=== PATIENT | female | born 1945 | race Caucasian/White ===

== ENCOUNTER → 2017-11-16 09:18 | Outpatient (POV) | payer MEDICARE, MEDICAID, SELFPAY | PROVIDERS: Visit Provider Dermatology | DX: Z00.00 Encounter for general adult medical examination without abnormal findings (principal) ==

== ENCOUNTER → 2018-01-18 09:19 | Outpatient (POV) | payer MEDICARE, MEDICAID, SELFPAY | PROVIDERS: Visit Provider Dermatology | DX: Z00.00 Encounter for general adult medical examination without abnormal findings (principal) ==

== ENCOUNTER → 2020-07-30 09:13 | Outpatient (POV) | payer MEDICARE, MEDICAID, SELFPAY | PROVIDERS: Visit Provider Dermatology | DX: Z00.00 Encounter for general adult medical examination without abnormal findings (principal) ==

== ENCOUNTER → 2021-06-23 10:46 | Outpatient (CLI) | payer MEDICARE, MEDICAID, SELFPAY ==
--- NOTE | 2021-06-23 10:51 | MR_ITS ---
FINAL REPORT CLINICAL HISTORY: LOW BACK PAIN worse on right side. bilateral leg tingling. no injury or trauma. COMPARISON: 06/19/2016 FINDINGS: Multiplanar MR imaging of the lumbar spine was performed without contrast. On the sagittal T2-weighted images, disc degeneration is seen at multiple levels. The vertebral alignment is normal. There is a mild, chronic compression fracture of L1. The conus has an unremarkable appearance. T11-12: An annular bulge is present. There are vertebral osteophytes. There is no significant canal stenosis or neural foraminal narrowing. T12-L1:An annular bulge is present. There are vertebral osteophytes. There is no significant canal stenosis or neural foraminal narrowing. L1-2: An annular bulge is present. There is no significant canal stenosis or neural foraminal narrowing. L2-3: There is an annular disc bulge with facet arthropathy and vertebral osteophytes. There is mild bilateral neural foraminal narrowing. There is no significant canal stenosis. L3-4: There is an annular disc bulge with facet arthropathy. There is mild left neural foraminal narrowing. There is no significant canal stenosis. L4-5: There is an annular disc bulge with facet arthropathy. There is moderate right and mild left neural foraminal narrowing. There is no significant canal stenosis. L5-S1: There is an annular disc bulge with facet arthropathy. There is a left paracentral superiorly extruded disc which is new as compared to the prior exam. There is left S1 nerve root impingement and mild bilateral neural foraminal narrowing. IMPRESSION: Multilevel degenerative disc disease with areas of neural foraminal narrowing. Left paracentral superiorly extruded disc at L5-S1 causing left S1 nerve root impingement and mild bilateral neural foraminal narrowing. Reviewed, Interpreted and Dictated by Bear Bahena III, MD Transcribed by Shireen Perez Authenticated by Bear Bahena III, MD on 06/23/2021 12:55:16 PM [facility]
== END ==
PROVIDERS: Visit Provider Anesthesiology
DX: M51.16 Intervertebral disc disorders with radiculopathy, lumbar region (principal); M47.816 Spondylosis without myelopathy or radiculopathy, lumbar region; M51.36 Other intervertebral disc degeneration, lumbar region; M79.18 Myalgia, other site; M46.1 Sacroiliitis, not elsewhere classified; R25.2 Cramp and spasm
CPT/HCPCS: 72148; 76376

== ENCOUNTER → 2022-12-07 08:35 | Outpatient (CLI) | payer MEDICARE, MEDICAID, SELFPAY ==
[2022-12-07 21:14] LABS: Alanine Aminotransferase 18 U/L (12-78); Albumin Level 4.6 g/dl (3.5-5.0); Albumin/Globulin Ratio 1.5 (1.1-1.8); Alkaline Phosphatase 142 U/L (38-126); Anion Gap 15.5 mEq/L (5-15); Aspartate Amino Transferase 32 U/L (14-36); Bilirubin,Total 0.3 mg/dl (0.2-1.3); Blood Urea Nitrogen 17 mg/dl (7-17); Calcium 9.6 mg/dl (8.4-10.2); Carbon Dioxide 28 mmol/L (22.0-30.0); Chloride 103 mmol/L (98-107); Chol/HDL Ratio 2.9 (1-3.5); Cholesterol 147 mg/dl (140-200); Estimated Glomerular Filt Rate 120 ml/min (>60); GFR (African American) 146 ML/MIN (>60); Globulin 3.1 g/dL (1.3-3.2); Glucose 108 mg/dl (74-100); HDL Cholesterol 51 mg/dl (40-60); Potassium 5.5 mmoL/L (3.5-5.1); Sodium 141 mmol/L (136-145); Total Protein,Serum 7.7 g/dl (6.3-8.2); Triglycerides 167 mg/dl (30-150); VLDL Cholesterol 33 mg/dL (0-40)
[2022-12-07 21:25] LABS: Direct LDL Cholesterol 66.33 mg/dL (100-129)
[2022-12-07 21:36] LABS: Basophils % 0.2 % (0.1-2.0); Eosinophils # 0.2 K/mm3 (0.0-0.4); Eosinophils % 2.1 % (0.1-12.0); Hemoglobin 12.7 g/dL (12.2-16.2); Lymphocytes # 1.8 K/mm3 (0.7-4.5); Lymphocytes % 18.3 % (10-50); Mean Corpuscular HGB Conc 34.3 g/dL (31.8-35.4); Mean Corpuscular Hemoglobin 28.4 pg (27.0-31.2); Mean Corpuscular Volume 82.7 fl (81-99); Mean Platelet Volume 10.1 fl (7.4-10.4); Monocytes # 0.5 K/mm3 (0.1-1.0); Monocytes % 5.6 % (1.7-9.3); Neutrophils # 7.1 K/mm3 (1.8-7.8); Neutrophils % 73.7 % (37.0-80.0); Platelet Count 245 K/mm3 (142-424); Red Blood Count 4.47 M/mm3 (4.20-5.40); Red Cell Distribution Width 13.9 % (11.5-17.5); White Blood Count 9.6 K/mm3 (4.8-10.8)
== END ==
PROVIDERS: PCP Physician Assistant; Visit Provider Physician Assistant
DX: I10 Essential (primary) hypertension (principal); M54.50 Low back pain, unspecified; E78.5 Hyperlipidemia, unspecified
CPT/HCPCS: 80053; 80061; 84443; 85025

== ENCOUNTER → 2022-12-10 10:48 | Outpatient (CLI) | payer MEDICARE, MEDICAID, SELFPAY ==
[2022-12-10 11:51] LABS: Hemoglobin A1C 6.4 % (4.0-6.0)
[2022-12-10 12:39] LABS: Anion Gap 15.8 mEq/L (5-15); Blood Urea Nitrogen 21 mg/dl (7-17); Calcium 9.8 mg/dl (8.4-10.2); Carbon Dioxide 28 mmol/L (22.0-30.0); Chloride 104 mmol/L (98-107); Estimated Glomerular Filt Rate 82 ml/min (>60); GFR (African American) 99 ML/MIN (>60); Glucose 118 mg/dl (74-100); Potassium 5.8 mmoL/L (3.5-5.1); Sodium 142 mmol/L (136-145)
[2022-12-10 12:53] LABS: 25-OH Vitamin D, Total 47.9 ng/mL (30-100)
== END ==
PROVIDERS: PCP Physician Assistant; Visit Provider Physician Assistant
DX: R73.9 Hyperglycemia, unspecified (principal); E87.5 Hyperkalemia; E55.9 Vitamin D deficiency, unspecified
CPT/HCPCS: 36415; 80048; 82306; 83036

== ENCOUNTER 2022-12-10 15:10 | Emergency (ER) | payer MEDICARE, MEDICAID, SELFPAY ==
[2022-12-10] VITALS (7 sets, daily range): BP systolic 130–152; BP diastolic 57–69; PULSE 69–78; RESP 15–18; TEMP 36.6; O2SAT 96–99; BMI 23.6
--- NOTE | 2022-12-10 15:27 | ECG_ITS ---
APPROVED REPORT Exam: Resting ECG HR:63 bpm ECG Measurements Heart Rate 63 AXES MS 136 P 54 QRSd 134 QRS -44 QT 474 T 63 QTc 482 Conclusion SINUS RHYTHM VENTRICULAR PREEXCITATION / WPW CRITICAL TEST RESULT UNCONFIRMED REPORT Electronically signed by : Israel Gann MD 12/10/2022 21:35:54
--- NOTE | 2022-12-10 15:44 | HMH.EDGENADL ---
Discharge Plan Disposition Patient Disposition: Home, Self-Care Chief Complaint: Recheck/Abnormal Lab/Rx Prescriptions Prescriptions: No Action gabapentin 300 mg capsule 300 mg PO HS clonazepam 1 mg tablet 1 mg PO BID candesartan 8 mg tablet 8 mg PO DAILY amlodipine 10 mg tablet 10 mg PO DAILY lovastatin 10 mg tablet 10 mg PO DAILY sertraline 100 mg tablet 100 mg PO DAILY alendronate 70 mg tablet 70 mg PO WEEKLY tizanidine 4 mg tablet 4 mg PO HS sotalol 80 mg tablet 80 mg PO DAILY metformin 500 mg tablet 500 mg PO DAILY Levemir FlexPen 100 unit/mL (3 mL) insulin pen 50 unit SQ HS Arexvy (PF) 120 mcg/0.5 mL suspension for reconstitution 0.5 ml IM ONCE Qty: 1 0RF meloxicam 15 mg tablet 15 mg PO DAILY Qty: 30 2RF hydrocodone-acetaminophen 10-300 mg tablet 1 tab PO Q6H PRN (Reason: pain) Qty: 120 0RF Referrals Follow up/Referrals: Flory Bautista PA [Primary Care Provider] - See instructions Dominic Weeks MD [Staff Physician] - See instructions Activity Restrictions/Add. Instructions Additional Instructions/Restrictions: At this time it was felt you are safe to be discharged home. If new or worsening symptoms please do not hesitate to return the emergency department. Please call and schedule follow-up with Dr. Weeks as soon as you are able. Clinical Impressions Clinical Impression: Encounter for medical assessment, History of Llxvy-Bvdifuanr-Tcujx (WPW) syndrome Discharge ED Provider: Manpreet Gordillo General Adult HPI General Chief complaint: Recheck/Abnormal Lab/Rx Stated complaint: sent by high cesar [place] Time Seen by Provider: 12/10/22 15:36 Mode of Arrival: Ambulatory Source of Information: Patient Limitations: No Limitations Description of Symptoms (Recalled from ER Triage Doc. by RN): Flory Bautista contacted patient and instructed her to come to ED for a Potassium of 5.1. Patient denies any symptoms. Patient states she does take a potassium pill daily. History of Present Illness HPI narrative: Patient is 77-year-old female with past medical history of O[place]endo Parkinson's White on sotalol, candesartan, amlodipine who presents emergency department for evaluation of abnormal lab. Patient had routine blood work drawn with a potassium of 5.8 noticed causing her to be referred here for continued evaluation. Patient is asymptomatic and has no complaints. Related Data Home Medications Medication Instructions Recorded Confirmed alendronate 70 mg tablet 70 mg PO WEEKLY 12/07/22 12/07/22 amlodipine 10 mg tablet 10 mg PO DAILY 12/07/22 12/07/22 candesartan 8 mg tablet 8 mg PO DAILY 12/07/22 12/07/22 clonazepam 1 mg tablet 1 mg PO BID 12/07/22 12/07/22 gabapentin 300 mg capsule 300 mg PO HS 12/07/22 12/07/22 insulin detemir U-100 100 unit/mL 50 unit SQ HS 12/07/22 12/07/22 (3 mL) subcutaneous pen (Levemir FlexPen) lovastatin 10 mg tablet 10 mg PO DAILY 12/07/22 12/07/22 metformin 500 mg tablet 500 mg PO DAILY 12/07/22 12/07/22 sertraline 100 mg tablet 100 mg PO DAILY 12/07/22 12/07/22 sotalol 80 mg tablet 80 mg PO DAILY 12/07/22 12/07/22 tizanidine 4 mg tablet 4 mg PO HS 12/07/22 12/07/22 Previous Rx's Medication Instructions Recorded RSVPreF3 antigen-AS01E 0.5 ml IM ONCE #1 ea 12/07/22 adjuvant(PF) 120 mcg/0.5 mL IM suspension, kit (Arexvy (PF)) hydrocodone 10 mg-acetaminophen 1 tab PO Q6H PRN pain #120 tabs 12/10/22 300 mg tablet meloxicam 15 mg tablet 15 mg PO DAILY inflamation #30 tabs 12/10/22 Allergies Allergy/AdvReac Type Severity Reaction Status Date / Time beta insulins AdvReac Mild Uncoded 12/07/22 10:41 PFSH PFSH Disclaimer: The information contained in this section may have been updated after the patient was seen, as this information can be updated by other users. Medical History (Updated 12/10/22 @ 17:00 by Manpreet Gordillo MD) Bulging discs Diabetes type
[2022-12-10 16:20] LABS: Basophils % 0.3 % (0.1-2.0); Eosinophils # 0.2 K/mm3 (0.0-0.4); Eosinophils % 2.2 % (0.1-12.0); Hemoglobin 12.4 g/dL (12.2-16.2); Lymphocytes % 22.1 % (10-50); Mean Corpuscular HGB Conc 34.6 g/dL (31.8-35.4); Mean Corpuscular Hemoglobin 27.9 pg (27.0-31.2); Mean Corpuscular Volume 80.7 fl (81-99); Mean Platelet Volume 8.4 fl (7.4-10.4); Monocytes # 0.5 K/mm3 (0.1-1.0); Monocytes % 5.5 % (1.7-9.3); Neutrophils # 6.3 K/mm3 (1.8-7.8); Neutrophils % 69.9 % (37.0-80.0); Platelet Count 241 K/mm3 (142-424); Red Blood Count 4.46 M/mm3 (4.20-5.40); Red Cell Distribution Width 13.9 % (11.5-17.5)
[2022-12-10 16:25] LABS: Chloride 104 mmol/L (98-107); Potassium 4.4 mmoL/L (3.5-5.1); Sodium 142 mmol/L (136-145)
[2022-12-10 16:28] LABS: Alanine Aminotransferase 18 U/L (12-78); Albumin Level 4.7 g/dl (3.5-5.0); Albumin/Globulin Ratio 1.4 (1.1-1.8); Alkaline Phosphatase 120 U/L (38-126); Anion Gap 12.4 mEq/L (5-15); Aspartate Amino Transferase 29 U/L (14-36); Bilirubin,Total 0.4 mg/dl (0.2-1.3); Blood Urea Nitrogen 20 mg/dl (7-17); Calcium 9.5 mg/dl (8.4-10.2); Carbon Dioxide 30 mmol/L (22.0-30.0); Creatinine Clearance Estimated 44 mL/min (50-200); Estimated Glomerular Filt Rate 82 ml/min (>60); GFR (African American) 99 ML/MIN (>60); Globulin 3.3 g/dL (1.3-3.2); Glucose 103 mg/dl (74-100)
== END 2022-12-10 17:09 | disposition home or self-care (01) ==
PROVIDERS: Emergency Provider Emergency Medicine; PCP Physician Assistant
DX: E87.5 Hyperkalemia (principal); E11.9 Type 2 diabetes mellitus without complications; I10 Essential (primary) hypertension; E78.5 Hyperlipidemia, unspecified; Z86.79 Personal history of other diseases of the circulatory system; Z79.4 Long term (current) use of insulin; M81.0 Age-related osteoporosis without current pathological fracture
CPT/HCPCS: 36415; 80048; 80053; 82306; 83036; 85025; 93005; 99283

== ENCOUNTER → 2022-12-17 07:24 | Outpatient (CLI) | payer MEDICARE, MEDICAID, SELFPAY ==
--- NOTE | 2022-12-17 07:30 | XR_ITS ---
FINAL REPORT TECHNIQUE: Bone densitometry calculations of the lumbar spine and left hip were obtained. CLINICAL HISTORY: osteoporosis screening COMPARISON: None FINDINGS: Using L1-4, the bone mineral density of the spine is 0.995 g/cm2, corresponding to T-score of -0.5 and a Z score of 2.0. This is within the range of normal. Using the left hip, the bone mineral density of the femoral neck is 0.647 g/cm2, corresponding to a T-score of -1.8 and a Z-score of 0.3. This is within the range of osteopenia. FRAX 10 year fracture risk is 4.2% for a hip fracture and 18% for a major osteoporotic fracture. NOTE: T-score: Standard deviation compared with peak bone mass of young adult mean. *Following the recommendations of the International Society of Bone densitometry, classification of hip BMD is based on the lower of two T-scores; total hip or femoral neck. IMPRESSION: 1. Bone mineral density of the lumbar spine within the range of normal. 2. Bone mineral density of the left femoral neck within the range of osteopenia. Reviewed, Interpreted and Dictated by Kerri Harper MD Transcribed by Zuleika Garcia Authenticated and [facility] [place] [place]
== END ==
PROVIDERS: PCP Physician Assistant; Visit Provider Physician Assistant
DX: M81.0 Age-related osteoporosis without current pathological fracture (principal)
CPT/HCPCS: 77080

== ENCOUNTER → 2023-01-08 08:26 | Outpatient (CLI) | payer MEDICARE, MEDICAID, SELFPAY ==
[2023-01-08 16:10] LABS: Amphetamine/Metha Screen,Urine Negative ng/ml (<1000)
[2023-01-08 16:12] LABS: Barbiturates Screen,Urine Negative ng/ml (<200)
[2023-01-08 16:13] LABS: Benzodiazepines Screen,Urine Negative ng/ml (<200); Cannabinoid Screen,Urine Negative ng/ml (<50)
[2023-01-08 16:14] LABS: Cocaine Screen,Urine Negative ng/ml (<300); Methadone Screen,Urine Negative ng/ml (<300)
[2023-01-08 16:15] LABS: Opiate Screen,Urine Negative ng/ml (<300)
[2023-01-08 16:16] LABS: Phencyclidine Screen,Urine Negative ng/ml (<25)
== END ==
PROVIDERS: PCP Nurse Practitioner Family; Visit Provider Nurse Practitioner Family
DX: R82.90 Unspecified abnormal findings in urine (principal); Z79.899 Other long term (current) drug therapy; B96.89 Other specified bacterial agents as the cause of diseases classified elsewhere
CPT/HCPCS: 80305; 87086

== ENCOUNTER 2023-01-21 10:00 | Outpatient (RCR) | payer MEDICARE, MEDICAID, SELFPAY ==
--- NOTE | 2023-01-05 11:33 | HMH.PTOPEV ---
PT Outpatient Evaluation Rehab PT Outpatient Evaluation Start: 01/05/23 11:20 Freq: Status: Active Protocol: Document 01/05/23 11:20 TOM (Rec: 01/05/23 11:32 OTM [id number]) E-signed By Rosendo Drew, PT Outpatient Therapy Subjective History Subjective History Pt reports h/o chronic mid and Low back pain for ~50+ yrs, progressively worsened over the last 5-10yrs. Pt reports mid back pain right and left sided, LBP left > right sided, and referred s/s into bilateral hip mm. Pt reports pain 'with everything I do'. Previous MRI of lumbar spine revealed multi-level DDD. Pt also reports 'neuropathy, burning in both my legs as well.' New diagnosis of cancer in past 12 No months? Chief Complaint Pain,Stiff,Paresthesia, Weakness Symptom Type Ache,Throb,Sharp,Dull,Stabbing ,Burning Symptoms Relieved By Rest/Positioning,Heat, Prescription Meds Symptoms Aggravated By Sitting,Standing,Physical Activity,Twisting,Walking, Lifting Prior Functional Limitations Reaching,Lifting,Housework, Standing,Sitting,Walking, Bending/Stooping Current Functional Limitations Reaching,Lifting,Housework, Standing,Sitting,Walking, Bending/Stooping Symptom Description Constant but Variable Level of pain today (0-10) 2 Pain scale - at its best (0-10) 1 Pain scale - at its worst (0-10) 10 Lumbopelvic Eval Posture Thoracic Spine Posture Standing Position Increased Kyphosis Lumbar Spine Posture Standing Position Flattened Assistive device Assistive Devices None / NA Gait Observation General Gait Pattern Observation Antalgic Gait,Shuffling Step Palapation tenderness bilateral thoracic spinal tenderness Yes: 3/4 lumbar spinal tenderness Yes: 3-4/4 paraspinal tenderness Yes: 3-4/4 buttock tenderness Yes: 3/4 Lumbar/Sacral Palpation Findings Tenderness,Trigger Point, Muscle Guarding Accessory Movement T-spine Vertebrae Accessory Movements Central P/A [place] that Elicit Symptoms T10 bilateral T11 bilateral T12 bilateral L-spine Vertebrae Accessory Movements Central P/A [place] that Elicit Symptoms L2 bilateral L3 bilateral L4 bilateral L5 bilateral S1 bilateral Range of Motion Lumbar Spine Active Flexion Range of 0-35 Motion (degrees) Lumbar Spine Active Extension Range of 0-10 Motion (degrees) Left Lumbar Spine Lateral Flexion Active 0-15 Range of Motion (degrees) Right Lumbar Spine Lateral Flexion 0-15 Active Range of Motion (degrees) Lumbar Spine ROM Limitations Soft Tissue Tightness,Pain Manual Muscle Test Bilateral Knee Extension Strength Grade 4 Good Knee Flexion Strength Grade 4- Good- Hip Flexion Strength Grade 3+ Fair+ Hip Abduction Strength Grade 3+ Fair+ Hip Adduction Strength Grade 4- Good- Extensor Hallucis Longus Strength Grade 4 Good Ankle Dorsiflexion Strength Grade 4- Good- Gastronemius/Soleus Strength Grade 4- Good- Special Tests Hip Piriformis Test Positive Left,Positive Right Sciatic Nerve Tension Test Positive Left,Positive Right Lumbar Long [place] Distraction Test/Manual Negative Traction Oswestry Index Section 1 Pain Intensity The pain comes and goes and is severe Section 2 Personal Care (Washing,Dresing) unable to do some washing and dressing without help Section 3 Lifting lifting heavy weights off the floor, but I can manage light to medium Section 4 Walking I cannot walk more than 1/4 mile without increasing pain Section 5 Sitting Pain prevents me from sitting for more than 1/2 hour Section 6 Standing I cannot stand more than 1/2 hour without increasing pain Section 7 Sleeping Because of my pain, my normal night's sleep is less than 6 hours sleep Section 8 Social Life Pain has restricted my social life and I do not go out often Section 9 Traveling Pain restricts me to short necessary journeys under 30 minutes Section 10 Changing Degreee of Pain My pain is rapidly getting worse Score and Risk Level Oswestry Sc 36 Oswestry Risk Level Completely Disabled Outpatient Therapy Assessment Impairments Problems/Impairmments Palpation Tenderness,Impaired Range of Motion,Impaired Strength,Impaired Gait Pattern ,Impaired Walking,Impaired Standing,Impaired Sitting, Impaired Driving,Impaired Lifting,Impaired Household Care,Impaired Stair Climbing, Impaired Bending,Subjective C/ O Pain,Impaired Self Care/Self Management Prognosis Rehab Potential Fair Clinical Impression Consistent with Diagnosis Yes Short Term Goals Number of Weeks 4 Decreased Palpation Tenderness Yes: 1-2/4 lumbar and thoracic mm Increase Range of Motion Yes: 50-60% of WFL AROM LUMBAR SPINE Increase Strength Yes: 4/5 B/L LE Increase Ability to Walk Yes: 20MIN Increase Ability to Stand Yes: 20MIN Increase Ability to Sit Yes: 20MIN Improve Ability For Household Care Yes: 20MIN Improve Oswestry Score Yes: 30-32 Decrease Subjective C/O Pain Yes: 3-4/10 W/ABOVE ACTIVITY Patient to be Ind w/ HEP Yes Skilled Nursing Goals Number of Weeks 6-8 Decreased Palpation Tenderness Yes: 0-1/4 LUMBAR AND THORACIC MM Increase Range of Motion Yes: 75% OF WFL AROM LUMBAR SPINE Increase Strength Yes: 4+/5 B/L LE'S Improve Gait Pattern without Assistive Yes: WFL ON LEVEL TERRAIN Device Increase Ability to Walk Yes: 30MIN Increase Ability to Stand Yes: 30MIN Increase Ability to Sit Yes: 30MIN Improve Ability For Household Care Yes: 30MIN Improve Oswestry Score Yes: 22-24 Decrease Subjective C/O Pain Yes: 0-2/10 W/ABOVE ACTIVITIES Patient to be Ind w/ Advanced HEP Yes Outpatient Therapy Plan of Care Treatment Plan May Include Therapeutic Exercise Including Home Yes Exercise Program Manual Therapy Techniques Yes Neuromuscular Re-education Yes Therapeutic Activities to Return to Yes Previous Functional/Work Level Gait Training Yes ADL/Self Care Education Yes Mechanical Traction Yes Dry Needling Yes Thermal Modalities Yes Electrical Stimulation Yes Ultrasound/Phonophoresis Yes Eval/Re-Eval Yes Frequency Times per week 2-3 Duration Number of Weeks 6-8 Addendums This patient is a candidate for social No or vocational rehab? Patient/Guardian verbally acknowledges Yes understanding of treatment program and consents to further treatment? Patient/Guardian verbally acknowledges Yes understanding of diagnosis, prognosis and goals for treatment? Eval Complexity PT Charges 78784 - Moderate Complexity Shoulder/Elbow Eval Shoulder Objective Measurements Elbow Objective Measurements PHYSICIAN CERTIFICATION: I certify the specified therapy services for Isatu Deleon are required, authorized, and reviewed every 30 days.
== END 2023-01-21 11:00 ==
LOC: PT 10:00
PROVIDERS: PCP Physician Assistant; Visit Provider Physician Assistant
DX: M54.50 Low back pain, unspecified; M25.552 Pain in left hip; M25.551 Pain in right hip; M54.6 Pain in thoracic spine
CPT/HCPCS: 97163

== ENCOUNTER → 2023-01-27 14:44 | Outpatient (POV) | payer MEDICARE, MEDICAID, SELFPAY ==
--- NOTE | 2023-01-27 14:57 | EXP.PAIN.OV ---
HPI Data of Consult Patient: new to practice Consult date: 01/27/23 Requesting Physician: Gabriela White APRN Primary Care Provider: GEOFF Landaverde Consult Narrative Reason for consult: Low back pain, hip pain History of present illness: Ms. Deleon is a 77 year old female who presents today as a new patient. She is a referral from Flory Bautista's office. Today she rates her pain a 10 out of 10. Patient states her pain is all in her low back and bilateral hips. Patient does state this is been going on for years since she was a younger child. Patient states she had an accident where she fell on calling. It did initially start some of her symptoms and it is progressively worsened over time. Patient does state that this is a sharp pain as well as a dull aching sensation with some numbness. Patient states the pain is frequently aggravated by increased activity or ambulation. She does state certain activities such as bending, twisting or lifting seem to irritate her pain worse. Patient states the pain interferes with her ability perform activities of daily living such as cooking and cleaning. Patient does state in the past she did go to an interventional pain clinic up at [place] and they did do injections. Patient states she believes they were in the L4-L5 area however is unsure what specifically they were. Patient states that the 1 she did have did not provide significant relief. Over the years she has tried [id number] Tylenol and ibuprofen along with heat and ice and topicals with no relief. Patient has tried physical therapy in the past with no additional improvement. Patient states she has been to a back doctor who was not recommending surgical intervention. She does states she also has a history of SI issues. Patient denies any new imaging. Patient does have significant health history including type 2 diabetes and osteoporosis. Patient is currently managed with [place] 10 mg 4 times a day, gabapentin 300 mg at bedtime and clonazepam 1 mg twice a day from an outside provider. Patient does state that the Lortab does help manage her symptoms on a daily basis. Her Sukh has been reviewed and is appropriate. CC: Gabriela White APRN [facility] Disclaimer: The information contained in this section may have been updated after the patient was seen, as this information can be updated by other users. Medical History Bulging discs Diabetes type 2, controlled Hyperlipidemia Hypertension Surgical History H/O abdominal hysterectomy Family History Other Cancer Diabetes Hypertension Social History Smoking Status: Never smoker alcohol intake: never substance use type: denies use current occupational status: retired Travel in the last 8 weeks: None Review of Systems Review of Systems Review of systems:: pertinent systems reviewed and negative unless documented below Review of systems (narrative): Review of Systems: General: No recent weight changes, no fever, no sleep disturbances Respiratory: No cough, no shortness of air, no recurring pulmonary infections Cardiovascular/peripheral vascular: No chest pain, no palpitations, no edema, no shortness of breath Gastrointestinal: No new onset incontinence, normal bowel movements reported Genitourinary: No new onset incontinence Musculoskeletal: Low back pain, bilateral hip pain Psychiatric: [Normal mood/affect] Neurological: [Denies weakness in extremities], [denies balance issues] Meds Home Medications and Allergies Home Medications Medication Instructions Recorded Confirmed Type RSVPreF3 antigen-AS01E 0.5 ml IM ONCE #1 ea 12/07/22 12/17/22 Rx adjuvant(PF) 120 mcg/0.5 mL IM suspension, kit (Arexvy (PF)) alendronate 70 m
[2023-01-27 15:47] VITALS: BP 173/92; PULSE 75; RESP 18; O2SAT 97; BMI 24.5
== END ==
LOC: SC.PAIN 14:46
PROVIDERS: PCP Physician Assistant; Visit Provider Nurse Practitioner Family
DX: M51.36 Other intervertebral disc degeneration, lumbar region (principal); M25.551 Pain in right hip; M25.552 Pain in left hip; M46.1 Sacroiliitis, not elsewhere classified
CPT/HCPCS: 99202; G0463

== ENCOUNTER 2023-05-14 14:32 | Emergency (ER) | payer MEDICARE, MEDICAID, SELFPAY ==
[2023-05-14 14:33] VITALS: BP 169/100; PULSE 81; RESP 19; TEMP 36.8; O2SAT 98; BMI 29.2
--- NOTE | 2023-05-14 15:13 | PC.NURSE ---
er at bedside
--- NOTE | 2023-05-14 15:20 | ECG_ITS ---
APPROVED REPORT Exam: Resting ECG HR:68 bpm ECG Measurements Heart Rate 68 AXES KS 140 P 70 QRSd 125 QRS -35 QT 485 T 69 QTc 502 Conclusion SINUS RHYTHM LEFT AXIS DEVIATION [QRS AXIS < -30] RIGHT VENTRICULAR CONDUCTION DELAY [RSR (QR) IN V1/V2] LEFT VENTRICULAR HYPERTROPHY Electronically signed by : MELISA MOSES, 05/14/2023 19:27:41
[2023-05-14 15:25] VITALS: BMI 21.7
[2023-05-14 15:31] VITALS: BP 141/60; PULSE 72; RESP 20; O2SAT 98
[2023-05-14 15:39] LABS: Basophils # 0.1 K/mm3 (0-0.2); Basophils % 0.7 % (0.1-2.0); Eosinophils # 0.3 K/mm3 (0.0-0.4); Eosinophils % 2.1 % (0.1-12.0); Hematocrit 33.4 % (37.0-47.0); Hemoglobin 10.6 g/dL (12.2-16.2); Lymphocytes # 1.6 K/mm3 (0.7-4.5); Lymphocytes % 12.5 % (10-50); Mean Corpuscular HGB Conc 31.9 g/dL (31.8-35.4); Mean Corpuscular Hemoglobin 26.3 pg (27.0-31.2); Mean Corpuscular Volume 82.4 fl (81-99); Mean Platelet Volume 8.6 fl (7.4-10.4); Monocytes # 0.6 K/mm3 (0.1-1.0); Monocytes % 4.8 % (1.7-9.3); Neutrophils # 10.3 K/mm3 (1.8-7.8); Neutrophils % 79.9 % (37.0-80.0); Platelet Count 351 K/mm3 (142-424); Red Blood Count 4.05 M/mm3 (4.20-5.40); Red Cell Distribution Width 13.8 % (11.5-17.5); White Blood Count 12.8 K/mm3 (4.8-10.8)
[2023-05-14 15:40] LABS: Chloride 104 mmol/L (98-107); Sodium 139 mmol/L (136-145)
[2023-05-14 15:40] LABS: Microscopic, Urine URINE MICROSCOPIC (MICROSCOPIC)
[2023-05-14 15:41] LABS: Potassium 4.1 mmoL/L (3.5-5.1)
[2023-05-14] MEDS: ONDANSETRON 4MG/2ML VIAL 4 MG IV (15:42)
[2023-05-14] MEDS: RINGERS SOLUTION,LACTATED 500 ML 250 ML IV (15:42)
[2023-05-14 15:43] LABS: Alanine Aminotransferase 15 U/L (12-78); Albumin Level 3.7 g/dl (3.5-5.0); Albumin/Globulin Ratio 1.1 (1.1-1.8); Alkaline Phosphatase 165 U/L (38-126); Anion Gap 7.1 mEq/L (5-15); Aspartate Amino Transferase 25 U/L (14-36); Bilirubin,Total 0.3 mg/dl (0.2-1.3); Blood Urea Nitrogen 21 mg/dl (7-17); Calcium 9.3 mg/dl (8.4-10.2); Carbon Dioxide 32 mmol/L (22.0-30.0); Creatinine Clearance Estimated 39 mL/min (50-200); Estimated Glomerular Filt Rate 97 ml/min (>60); GFR (African American) 118 ML/MIN (>60); Globulin 3.3 g/dL (1.3-3.2); Glucose 244 mg/dl (74-100); Lipase 84 U/L (23-300)
[2023-05-14 15:45] VITALS: BP 136/56; PULSE 62; RESP 18; O2SAT 97
--- NOTE | 2023-05-14 15:45 | PC.NURSE ---
Rounded on patient; nothing needed at this time. Call light within reach
[2023-05-14 15:55] LABS: Troponin I < 0.01 ng/ml (0.00-0.034)
--- NOTE | 2023-05-14 15:58 | ED_ITS ---
Discharge Plan Disposition Patient Disposition: Home, Self-Care Condition: Good Prescriptions Prescriptions: New ondansetron 4 mg tablet,disintegrating 4 mg PO Q6H PRN (Reason: nausea and vomiting) Qty: 10 0RF No Action gabapentin 300 mg capsule 300 mg PO HS amlodipine 10 mg tablet 10 mg PO DAILY lovastatin 10 mg tablet 10 mg PO DAILY sertraline 100 mg tablet 100 mg PO DAILY alendronate 70 mg tablet 70 mg PO WEEKLY tizanidine 4 mg tablet 4 mg PO HS sotalol 80 mg tablet 80 mg PO DAILY metformin 500 mg tablet 500 mg PO DAILY Levemir FlexPen 100 unit/mL (3 mL) insulin pen 50 unit SQ HS (DME) blood-glucose meter [OneTouch Verio Flex meter] Misc See Rx Instructions .ROUTE .MEDSUPPLY Qty: 1 Patient Comments: USE DIRECTED Rx Instructions: As directed (DME) OneTouch Verio test strips Strip See Rx Instructions .ROUTE .MEDSUPPLY Qty: 10 Rx Instructions: As directed (DME) lancets [OneTouch Delica Plus Lancet] 30 gauge misc See Rx Instructions .ROUTE .MEDSUPPLY Qty: 100 Rx Instructions: As directed meloxicam 15 mg tablet 15 mg PO DAILY Qty: 30 2RF candesartan 8 mg tablet 8 mg PO DAILY Qty: 30 8RF hydrocodone-acetaminophen 10-325 mg tablet 1 tab PO Q6H PRN (Reason: pain) Qty: 120 0RF Referrals Follow up/Referrals: Kyra Domínguez APRN [Primary Care Provider] - See instructions Activity Restrictions/Add. Instructions Additional Instructions/Restrictions: Discontinue taking CBD Gummies. Call your family doctor to establish care for this visit to the emergency department and schedule follow-up within 48 hours to ensure improvement. If you have any worsening of your condition or any other concerning signs or symptoms, return to the emergency department or your primary care doctor for further evaluation. Clinical Impressions Clinical Impression: Nausea Instructions Patient Instructions: DI for Acute Abdominal Pain Discharge ED Provider: Yovanny Dill General Adult HPI General Chief complaint: Abdominal Pain Stated complaint: abd pain Time Seen by Provider: 05/14/23 15:01 Mode of Arrival: EMS Source of Information: Patient, EMS and Medical Record Limitations: No Limitations Description of Symptoms (Recalled from ER Triage Doc. by RN): Pt c/o epigastric pain for 2 wk straight since ingestion of CBD Gummy . Denies any n/v/d. Denies fever. States the pain has been constant. Per EMS, pt was at PCP office, Kyra Domínguez APRN, and during the EKG pt felt my heart beating hard . Denies any SOA or chest pain. Pt rates pain 10/10 on [employer] and she is also asking for food and drink. She states she has maintained good appetite despite pain. History of Present Illness HPI narrative: This is a 78-year-old male with a hypertension, hyperlipidemia, type 2 diabetes, Onlsb-Jvhqbcdcx-Ylama syndrome, osteoporosis presenting with nervous stomach. Patient states that she took a CBD gummy 2 weeks prior to this visit. Since that time has had a nervous stomach. Denies chest pain, shortness of breath, diaphoresis, vomiting, diarrhea, constipation, but feels nauseated intermittently. Still tolerating p.o. intake including liquids and solids without issue. No fevers or chills, recent travel, or any other concerns. Please note that above description of symptoms, in this electronic medical record under categorization of recalled from ER triage doctor by RN are reflective of an initial nursing assessment, however, is not reflective of my full history and physical exam that was personally taken and clarified. Consequentially, this preceding description of symptoms, which may include the patient's categorized chief complaint in the EMR, do not reflect my personal clinical impression, and the ultimate description of history of present illness and patient stated complaints should be deferred to this section of the note. Unless stated otherwise or congruent with this section of the note, additional signs, symptoms, or incongruence should be interpreted as inaccurate with my clinical impression. Related Data Home Medications Medication Instructions Recorded Confirmed alendronate 70 mg tablet 70 mg PO WEEKLY 12/07/22 04/12/23 amlodipine 10 mg tablet 10 mg PO DAILY 12/07/22 04/12/23 gabapentin 300 mg capsule 300 mg PO HS 12/07/22 04/12/23 insulin detemir U-100 100 unit/mL 50 unit SQ HS 12/07/22 04/12/23 (3 mL) subcutaneous pen (Levemir FlexPen) lovastatin 10 mg tablet 10 mg PO DAILY 12/07/22 04/12/23 metformin 500 mg tablet 500 mg PO DAILY 12/07/22 04/12/23 sertraline 100 mg tablet 100 mg PO DAILY 12/07/22 04/12/23 sotalol 80 mg tablet 80 mg PO DAILY 12/07/22 04/12/23 tizanidine 4 mg tablet 4 mg PO HS 12/07/22 04/12/23 blood sugar diagnostic (OneTouch #10 ea 01/08/23 04/12/23 Verio test strips) blood-glucose meter (OneTouch #1 ea 01/08/23 04/12/23 Verio Flex Meter) lancets 30 gauge (OneTouch Delica #100 ea 01/08/23 04/12/23 Plus Lancet) Previous Rx's Medication Instructions Recorded meloxicam 15 mg tablet 15 mg PO DAILY inflamation #30 tabs 12/10/22 candesartan 8 mg tablet 8 mg PO DAILY #30 tabs 12/17/22 hydrocodone 10 mg-acetaminophen 1 tab PO Q6H PRN pain #120 tabs 04/05/23 325 mg tablet ondansetron 4 mg disintegrating 4 mg PO Q6H PRN nausea and 05/14/23 tablet vomiting #10 tabs Allergies Allergy/AdvReac Type Severity Reaction Status Date / Time beta insulins AdvReac Mild Uncoded 04/12/23 08:20 PFSH PFSH Disclaimer: The information contained in this section may have been updated after the patient was seen, as this information can be updated by other users. Medical History Bulging discs Diabetes type 2, controlled Hyperlipidemia Hypertension Surgical History H/O abdominal hysterectomy Family History Other Cancer Diabetes Hypertension Social History Smoking Status: Unknown if ever smoked alcohol intake: never substance use type: denies use current occupational status: retired Travel in the last 8 weeks: None ROS Obtained: Yes All systems reviewed & no additional complaints except as documented Physical Exam General General appearance: alert and in no apparent distress Head Head exam: atraumatic and normocephalic Eye Eye exam: Present normal appearance, PERRL and EOMI ENT ENT exam: Present mucous membranes moist Neck Neck exam: Present normal inspection, full ROM and trachea midline Respiratory Respiratory exam: Absent respiratory distress, wheezes, stridor, accessory muscle use or prolonged expiratory phase Cardiovascular Cardiovascular exam: Present normal rhythm Abdominal Exam Abdominal exam: Present soft; Absent distention, tenderness, guarding, rebound or rigidity Extremities Exam Extremities exam: Absent edema Neurological Exam Neurological exam: Present alert, oriented X3, CN II-XII intact and normal gait; Absent motor sensory deficit Skin Skin exam: Present warm and dry; Absent diaphoresis or erythema Medical Decision Making Medical Records Medical records reviewed: Yes I reviewed the patient's medical records. Sukh Inquiry Pt receiving controlled substance: No Sukh was queried for this patient: No Vital Signs: 05/14/23 14:33 05/14/23 15:31 05/14/23 15:45 Temperature 98.2 F Temperature Source Oral Pulse Rate 72 62 Pulse Rate [Right] 81 Respiratory Rate 19 20 18 Blood Pressure 141/60 H 136/56 L Blood Pressure [Right Arm] 169/100 H Blood Pressure Mean 104 82 Blood Pressure Mean [Right Arm] 123 Blood Pressure Source Blood Pressure Source [Right Arm] Automatic Cuff Blood Pressure Position 02 Sat by Pulse Oximetry 98 98 97 Oxygen Delivery Method Room Air Room Air Room Air 05/14/23 16:00 05/14/23 16:31 05/14/23 17:31 Temperature 98.2 F Temperature Source Oral Pulse Rate 67 72 Pulse Rate [Right] Respiratory Rate 18 16 Blood Pressure 135/68 160/67 H 162/73 H Blood Pressure [Right Arm] Blood Pressure Mean 83 84 Blood Pressure Mean [Right Arm] Blood Pressure Source Automatic Cuff Blood Pressure Source [Right Arm] Blood Pressure Position Sitting 02 Sat by Pulse Oximetry 96 Oxygen Delivery Method Room Air Lab Data Lab Results 05/14/23 14:40: WBC 12.8 H, RBC 4.05 L, Hgb 10.6 L, Hct 33.4 L, MCV 82.4, MCH 26.3 L, MCHC 31.9, RDW 13.8, Plt Count 351, MPV 8.6, Neut % (Auto) 79.9, Lymph % (Auto) 12.5, Beckham % (Auto) 4.8, Eos % (Auto) 2.1, Baso % (Auto) 0.7, Neut # (Auto) 10.3 H, Lymph # (Auto) 1.6, Beckham # (Auto) 0.6, Eos # (Auto) 0.3, Baso # (Auto) 0.1, Sodium 139, Potassium 4.1, Chloride 104, Carbon Dioxide 32 H, Anion Gap 7.1, BUN 21 H, Creatinine 0.60, Estimated Creat Clear 39, Estimated GFR 97, Est GFR ( Amer) 118, Glucose 244 H, Calcium 9.3, Total Bilirubin 0.3, AST 25, ALT 15, Alkaline Phosphatase 165 H, Troponin I < 0.01, Total Protein 7.0, Albumin 3.7, Globulin 3.3 H, Albumin/Globulin Ratio 1.1, Lipase 84 05/14/23 15:08: Urine Color Yellow, Urine Appearance Clear, Urine pH 8.5, Ur Specific [place] 1.015, Urine Protein Negative, Urine Glucose (UA) 1+, Urine Ketones Negative, Urine Blood Negative, Urine Nitrate Negative, Urine Bilirubin Negative, Urine Urobilinogen 0.2, Ur Leukocyte Esterase Trace, Urine RBC None, Urine WBC Occasional, Ur Squamous Epith Cells Occasional, Urine Bacteria None 05/14/23 14:40 05/14/23 14:40 Orders (Tests/Meds): ED MEDICATIONS Discontinued Medications Generic Name Dose Route Start Last Admin Trade Name Freq PRN Reason Stop Dose Admin Lactated Ringer's 500 mls @ 250 mls/hr 05/14/23 15:29 05/14/23 15:42 Lactated Ringer's 500ml IV 05/14/23 17:28 250 mls/hr .Q2H ONE Administration Ondansetron HCl 4 mg 05/14/23 15:28 05/14/23 15:42 Ondansetron 4mg/2ml Vial IV 05/14/23 15:29 4 mg ONCE ONE Administration ORDERS Category Date Time Status CBC w/Auto Diff [Complete Blood Count Auto Diff] Stat Lab 05/14/23 14:40 Completed CMP [Comprehensive Metabolic Panel] Stat Lab 05/14/23 14:40 Completed Lipase Stat Lab 05/14/23 14:40 Completed Trop I [Troponin I] Stat Lab 05/14/23 14:40 Completed UA [Urinalysis and Microscopic] Stat Lab 05/14/23 15:08 Completed HEART Score History (anamnesis): Slightly suspicious ECG: Normal Age: >65 years Risk factors: 3 or more risk factors Troponin: </= normal limit HEART Score: 4 Medical Decision Narrative: This is a 78-year-old male with a cholecystectomy, hysterectomy, hypertension, hyperlipidemia, type 2 diabetes, Iaqrc-Uudruqzml-Qdmqq syndrome, osteoporosis presenting with nervous stomach. Patient states that she took a CBD gummy 2 weeks prior to this visit. Since that time has had a nervous stomach. Denies chest pain, shortness of breath, diaphoresis, vomiting, diarrhea, constipation, but feels nauseated intermittently. Still tolerating p.o. intake including liquids and solids without issue. No fevers or chills, recent travel, or any other concerns. History was obtained via conversation with patient. On arrival, patient hemodynamically stable, alert, oriented x4, appropriate, GCS 15, moving all extremities spontaneously, pupils equal and reactive to light. Full physical exam performed and significant for very well-appearing patient in no acute distress. She is hypertensive with diastolic pressure greater than 120, but patient denying any symptoms at this time. States she is following with her family doctor for this. Cardiopulmonary exam within normal limits otherwise. Abdomen soft, nontender, nondistended. Overall unremarkable physical exam. Differential includes gastritis, enteritis, arrhythmia, ACS, HI, metabolic abnormality, supplement side effect, pancreatitis, among others. Patient was given Zofran and fluids for symptomatic management and correction of underlying abnormalities. Workup independently interpreted and significant for nonactionable CBC or history, troponin negative, lipase negative, urinalysis without concern for UTI. Independent interpretation of EKG shows sinus rhythm with no ST or T wave changes concerning for acute ischemia. TN, QRS, QT intervals within normal limits. Incomplete right bundle branch block. Heart score 4. On reevaluation, patient resting comfortably bed, requesting to leave feeling much better after Zofran. Given patient presentation, workup, history, this most likely represents nausea versus gastritis. Because patient at baseline without signs or symptoms of clinical decompensation, deemed appropriate for discharge. Results were relayed to patient who voiced understanding and were agreeable to outpatient management and follow up. I discussed my clinical impression with patient and answered all questions. At this time, the evidence for any other entities in the differential is insufficient to warrant any further testing or ED observation. This was explained as well. Advisory was given that persistent or worsening symptoms require further evaluation. I confirmed the understanding of this discussion. Critical Care Critical Care Time Critical Care Time: No
[2023-05-14 16:00] VITALS: BP 135/68
[2023-05-14 16:02] LABS: Appearance,Urine CLEAR (Clear); Bilirubin,Urine Negative (Negative); Blood, Urine Negative (Negative); Color,Urine YELLOW (Yellow); Glucose,Urine (UA) 1+ (Negative); Ketones,Urine Negative (Negative); Leukocyte Esterase,Urine TRACE (Negative); Nitrate,Urine Negative (Negative); PH,Urine 8.5 (5.0-8.5); Protein,Urine Negative (Negative); Specific Gravity, Urine 1.015 (1.005-1.030); Urobilinogen,Urine 0.2 EU/dl (0.2)
[2023-05-14 16:14] LABS: Squamous Epithelial Cell,Urine Occasional #/hpf (0-5); WBC,Urine Occasional #/hpf (0-3)
[2023-05-14 16:31] VITALS: BP 160/67; PULSE 67; RESP 18; O2SAT 96
--- NOTE | 2023-05-14 17:21 | PC.NURSE ---
er at bedside
[2023-05-14 17:31] VITALS: BP 162/73; PULSE 72; RESP 16; TEMP 36.8; O2SAT 99
== END 2023-05-14 17:33 | disposition home or self-care (01) ==
PROVIDERS: Emergency Provider Emergency Medicine; PCP Nurse Practitioner Family
DX: R11.0 Nausea (principal); I10 Essential (primary) hypertension; E78.5 Hyperlipidemia, unspecified; E11.9 Type 2 diabetes mellitus without complications; Z79.4 Long term (current) use of insulin; Z79.84 Long term (current) use of oral hypoglycemic drugs
CPT/HCPCS: 80053; 81001; 83690; 84484; 85025; 93005; 96361; 96374; 99284; J2405

== ENCOUNTER 2024-01-20 11:14 | Outpatient (CLI) | payer MEDICARE, MEDICAID, SELFPAY ==
--- NOTE | 2024-01-20 12:01 | XR_ITS ---
FINAL REPORT CLINICAL HISTORY: SPONDYLOSIS W/O MYELOPATHY OR RADICULOPATHY FINDINGS: THORACIC SPINE: AP, lateral, and swimmer's views of the thoracic spine were obtained. There is no prior exam for comparison. There is no acute fracture. A mild left curvature of the thoracic spine is noted. Moderate degenerative changes are present. Vertebral body height is preserved. Paraspinal soft tissues are within normal limits. IMPRESSION: Mild left curvature and moderate degenerative change without acute bony abnormality. LUMBAR SPINE: AP and lateral views of the lumbar spine were obtained. There is no prior exam for comparison. There is no acute fracture. There is dextroscoliosis of the lumbar spine. Vertebral body height is preserved. Moderate degenerative change is present. Vascular calcifications are noted. IMPRESSION: Dextroscoliosis with moderate multilevel degenerative change. No acute bony abnormality identified. Reviewed, Interpreted and Dictated by Bear Bahena III, MD Transcribed by Marci Chiang Authenticated and [facility]
== END 2024-01-20 23:59 | disposition home or self-care (01) ==
LOC: RAD 11:16
PROVIDERS: PCP Nurse Practitioner Family; Visit Provider Pain Medicine Interventional Pain Medicine
DX: M47.815 Spondylosis without myelopathy or radiculopathy, thoracolumbar region (principal)
CPT/HCPCS: 72084

== ENCOUNTER 2024-12-13 11:35 | Observation (INO) | payer MEDICARE, MEDICAID, SELFPAY ==
--- OUTSIDE RECORDS SUMMARY | 2024-04-07 10:45 | XMS_ITS ---
Author Organization [facility] Address [address] [place] [address] Care Team Providers Care National Sales Trainer Name Role Phone Kyra Ortiz APRN, Mem Primary Care Provider Unavailable Ned Caceres II Unavailable Bear Mata Unavailable Unavailable Mannie Crain Unavailable [phone] Allergies No Known Allergies REASON FOR VISIT low back pain Medications Medication SIG (Take, Route, Frequency, Duration) Notes Start Date End Date Status Acetaminophen-Hydroco done Bitartrate 325 mg-7.5 mg 1 tab(s) orally TID; Duration: 28 days FEBRUARY 2024 RX DO NOT FILL SOONER THAN 28 DAYS (OK TO FILL EARLY, ONLY IF CLOSED) Active Levemir FlexPen 100 units/mL ; Duration: 82 Active ASA/Caffeine/Orphenad rine 385 mg-30 mg-25 mg 1 tab(s) orally 3 times a day; Duration: 30 day(s) Active meloxicam 15 mg TAKE ONE TABLET BY MOUTH DAILY WITH FOOD; Duration: 90 Active clonazePAM 1 mg ; Duration: 30 Active lovastatin 10 mg ; Duration: 90 Active metFORMIN 500 mg 1 tab(s) orally 2 times a day; Duration: 30 day(s) 11/19/2022 Active sertraline 100 mg 1 tab(s) orally once a day; Duration: 30 day(s) 11/19/2022 Active sotalol 80 mg 1 tab(s) orally 2 times a day; Duration: 30 day(s) 11/19/2022 Active tiZANidine 4 mg 1 tab(s) orally 3 times a day; Duration: 30 day(s) 11/19/2022 Active gabapentin 300 mg TAKE ONE CAPSULE BY MOUTH AT BEDTIME; Duration: 30 Active amLODIPine 10 mg 1 tab(s) orally once a day; Duration: 30 day(s) 11/19/2022 Active candesartan 8 mg 1 tab(s) orally once a day; Duration: 30 day(s) 11/19/2022 Active Encounters Encounter Location Date Provider Diagnosis [facility] [address] [place] [address] 04/07/2024 Mannie Crain [facility] Z79.899 ; Spondylosis without myelopathy or radiculopathy, lumbar region M47.816 and Spondylosis without myelopathy or radiculopathy, 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 refill Keller 7.5/325mg TID 2. Start Norgesic TID 3. 1 month follow up March 03, 2024: The patient presents to the [facility] in [facility] for an audiovisual-teleme dicine visit. The patient was evaluated by the infertility medical assistant and a urine drug screen was obtained as well as vital signs. Portions of the physical examination were assisted by the infertility medical assistant during the audiovisual-teleme dicine visit Review of history: Ms. Deleon is a 78-year-old who presents today on referral from Dr. Scott for continuing management of chronic back and neck pain. She has had a longstanding history of degenerative disc disease along with scoliosis and spondylosis. She was managed by Dr. Scott until his halfway about 6 months ago. She was not able to get into see any pain doctors and her area as she states they were not taking on new patients for medication management along. Her diagnostic studies are consistent with the thoracolumbar spondylosis. Symptomatically she cannot sit for long periods of time stand for long periods of time or stand bent slightly flexed without pain. She states she has undergone injection therapy in the past and those do not do her any good. I reviewed with her that if we focus on the facet joints as opposed to the disc bulging at that perhaps the injections would be beneficial but she is still very apprehensive. Continue Keller 7.5/325 1 p.o. 3 times daily. She denies side effect of that medicine. Na and UDS were reviewed. Opioid risk assessment is moderate. March 03, 2024: Ms. Isatu Deleon is a 78-year-old lady who presents with chronic back pain. Her pain today is 10/10. She missed her last appointment apparently because she did not have a ride to the office. She has been out of her medications as well. She complains of muscle spasms in her back. There have been no changes in her overall condition. We will refill the hydrocodone and add Norgesic for muscle relaxation. Will see the patient back in 1 months. No changes in her overall condition. 04/07/2024 Spondylosis without myelopathy or radiculopathy, lumbar region (ICD-10 - M47.816) March 03, 2024: The patient presents to the [facility] in [facility] for an audiovisual-teleme dicine visit. The patient was evaluated by the infertility medical assistant and a urine drug screen was obtained as well as vital signs. Portions of the physical examination were assisted by the infertility medical assistant during the audiovisual-teleme dicine visit Review of history: Ms. Deleon is a 78-year-old who presents today on referral from Dr. Scott for continuing management of chronic back and neck pain. She has had a longstanding history of degenerative disc disease along with scoliosis and spondylosis. She was managed by Dr. Scott until his halfway about 6 months ago. She was not able to get into see any pain doctors and her area as she states they were not taking on new patients for medication management along. Her diagnostic studies are consistent with the thoracolumbar spondylosis. Symptomatically she cannot sit for long periods of time stand for long periods of time or stand bent slightly flexed without pain. She states she has undergone injection therapy in the past and those do not do her any good. I reviewed with her that if we focus on the facet joints as opposed to the disc bulging at that perhaps the injections would be beneficial but she is still very apprehensive. Continue Keller 7.5/325 1 p.o. 3 times daily. She denies side effect of that medicine. Na and UDS were reviewed. Opioid risk assessment is moderate. March 03, 2024: Ms. Isatu Deleon is a 78-year-old lady who presents with chronic back pain. Her pain today is 10/10. She missed her last appointment apparently because she did not have a ride to the office. She has been out of her medications as well. She complains of muscle spasms in her back. There have been no changes in her overall condition. We will refill the hydrocodone and add Norgesic for muscle relaxation. Will see the patient back in 1 months. No changes in her overall condition. 04/07/2024 Spondylosis without myelopathy or radiculopathy, thoracolumbar region (ICD-10 - M47.815) March 03, 2024: The patient presents to the [facility] office in [facility] for an audiovisual-teleme dicine visit. The patient was evaluated by the infertility medical assistant and a urine drug screen was obtained as well as vital signs. Portions of the physical examination were assisted by the infertility medical assistant during the audiovisual-teleme dicine visit Review of history: Ms. Deleon is a 78-year-old who presents today on referral from Dr. Scott for continuing management of chronic back and neck pain. She has had a longstanding history of degenerative disc disease along with scoliosis and spondylosis. She was managed by Dr. Scott until his halfway about 6 months ago. She was not able to get into see any pain doctors and her area as she states they were not taking on new patients for medication management along. Her diagnostic studies are consistent with the thoracolumbar spondylosis. Symptomatically she cannot sit for long periods of time stand for long periods of time or stand bent slightly flexed without pain. She states she has undergone injection therapy in the past and those do not do her any good. I reviewed with her that if we focus on the facet joints as opposed to the disc bulging at that perhaps the injections would be beneficial but she is still very apprehensive. Continue Keller 7.5/325 1 p.o. 3 times daily. She denies side effect of that medicine. Na and UDS were reviewed. Opioid risk assessment is moderate. March 03, 2024: Ms. Isatu Deleon is a 78-year-old lady who presents with chronic back pain. Her pain today is 10/10. She missed her last appointment apparently because she did not have a ride to the office. She has been out of her medications as well. She complains of muscle spasms in her back. There have been no changes in her overall condition. We will refill the hydrocodone and add Norgesic for muscle relaxation. Will see the patient back in 1 months. No changes in her overall condition. Plan Of Treatment Medication Medication Name Sig Start Date Stop Date Notes Acetaminophen-Hydrocodon e Bitartrate 325 mg-7.5 mg 1 tab(s) orally TID; Duration: 28 days FEBRUARY 2024 RX DO NOT FILL SOONER THAN 28 DAYS (OK TO FILL EARLY, ONLY IF CLOSED) ASA/Caffeine/Orphenadrin e 385 mg-30 mg-25 mg 1 tab(s) orally 3 times a day; Duration: 30 day(s) Treatment Notes Assessment Notes [facility] jail [facility]current[facility] drug therapy 03/03/2024 1. refill Keller 7.5/325mg TID 2. Start Norgesic TID 3. 1 month follow up Pending Test Test Name Order Date Urine Test ANALYZER 04/07/2024 Next Appt Details Follow Up: 4 Weeks, Reason: Progress Notes * Isatu DELEONDOB:1945 (79 yo F)Acc No.[id number]:04/07/2024 Patient: Isatu GALEANO Provider: Joss Crain MD :1945 A ge:78 Y S ex:Female Date:04/07/2024 Address:[address]-[phone] Pcp:Kyra mace Mem Subjective: * Chief Complaints: * 1 . Low back pain. * HPI: T ODAYS PAIN EVALUATION: MEDICATION FOLLOW UP: T he patient is currently prescribed Keller 7.5 TID, which provides 100% relief of pain symptoms for 4 h ours. The last dose was taken in 2023. Denies side effects. C URRENT PAIN SYMPTOMS: L ocation of Worst Pain: Low Back, P ain Frequency: c onstant, P ain Description: a reema, A verage Pain Score VAS: 1 0, P ain Exacerbation: Everything, P ain Alleviation: m Bang vargas DL/Quality of Life Interference: Everything. P AIN MANAGEMENT TREATMENT HISTORY: IMAGING HISTORY: 1 03/22/2023 XR Multiple spine- Mild left curvature and moderate degenerative change without acute bony abnormality. Lumbar spine - AP and lateral views of the lumbar spine were obtained. There is no prior exam for compariosn. There is no acute fracture. There is dixtroscoliosis of the lumbar spine. Vertebral body height is preserved. Moderate degenerative change is present. Vascular calcifations are noted. Dextroscoliosis with moderate multilevel degenerative change. No acute bony abnormality identifited . P REVIOUS INJECTION\PROCEDURE HISTORY:? D enies . P HYSICAL/AQUA THERAPY/DME/OTHER HISTORY: N o therapies reported . P ERTINENT SURGICAL EVALUATIONS/SPECIALIST CONSULTS N o prior surgical consult . P REVIOUS PAIN CLINIC CARE: D yuni . S UMMARY OF INITIAL EVALUATION: 0 10/06/2023 New patient consult [facility] by? Bear Scott MD for c hronic back pain P ain began unknown without accident. Severe Pain Low back pain patient dont recall much Ms. Deleon is a 78-year-old who presents today on referral from Dr. Scott for continuing management of chronic back and neck pain. She has had a longstanding history of degenerative disc disease along with scoliosis and spondylosis. She was managed by Dr. Scott until his halfway about 6 months ago. She was not able to get into see any pain doctors and her area as she states they were not taking on new patients for medication management along. Her diagnostic studies are consistent with the thoracolumbar spondylosis. Symptomatically she cannot sit for long periods of time stand for long periods of time or stand bent slightly flexed without pain. S he states she has undergone injection therapy in the past and those do not do her any good. I reviewed with her that if we focus on the facet joints as opposed to the disc bulging at that perhaps the injections would be beneficial but she is still very apprehensive. M edication hamilton she had relied on Keller 10/325 1 p.o. 3 times daily. She has not taken this medication in greater than 6 months. We will resume treatment with the Keller 7.5/325 1 p.o. 3 times daily. She denies side effect of that medicine. Na and UDS were reviewed. Opioid risk assessment is moderate. . C OMPLIANCE: RISK ASSESSMENT AND STRATIFICATION: R ISK GROUP: . U RINE DRUG TESTIN 10/06/2023 Screen Expected 1 Screen Expected 1 02/25/2023 . M ONITORING: M orphine Equivalent (MME): 0 K ASPER reviewed today and appropriate . T ESTING/RISK ASSESSMENTS O RT Score/Result: 0 . * ROS: G ENERAL: Fever D enies. H EENT: Sore throat D enies. R ESPIRATORY: Negative for: r espiratory issues. G ASTROINTESTINAL: Negative for abdominal issues. G ENITOURINARY: Negative for genitourinary issues. M USCULOSKELETAL: Positive for l ow back pain. N EUROLOGICAL: Negative for n eurological issues. P SYCHIATRIC: Positive for a nxiety. E NDOCRINE: Positive for A bnormal blood sugars. * Medical History: A nxiety mananged by pcp, HTN mananged by pcp, Hyperlipidemia [id number] by pcp, Diabetes manangwed by pcp. * Surgical History: Lance morrissey Past Surgical History. * Hospitalization/Major Diagno stic Procedure: Lance morrissey Past Hospitalization. * Family History: N on-Contributory. denies family hx of substance abuse. * Medications: T aking clonazePAM 1 mg tablet , Taking gabapentin 300 mg capsule TAKE ONE CAPSULE BY MOUTH AT BEDTIME , Taking amLODIPine 10 mg tablet 1 tab(s) orally once a day , Taking candesartan 8 mg tablet 1 tab(s) orally once a day , Taking lovastatin 10 mg tablet , Taking metFORMIN 500 mg tablet 1 tab(s) orally 2 times a day , Taking sertraline 100 mg tablet 1 tab(s) orally once a day , Taking sotalol 80 mg tablet 1 tab(s) orally 2 times a day , Taking tiZANidine 4 mg tablet 1 tab(s) orally 3 times a day , Taking Levemir FlexPen 100 units/mL solution , Taking meloxicam 15 mg tablet TAKE ONE TABLET BY MOUTH DAILY WITH FOOD , Taking Acetaminophen-Hydrocodone Bitartrate 325 mg- 7.5 mg tablet 1 tab(s) orally TID , Taking ASA/Caffeine/Orphenadrine 385 mg-30 mg-25 mg tablet 1 tab(s) orally 3 times a day , Medication List reviewed and reconciled with the patient * Allergies: N .K.D.A. Objective: * Vitals: * Examination: G eneral Examination: Nurse/Senior Ecologist: Carolyn hanley (MA-Lex)Malgorzata 03/03/2024 2:47:13 PM > . General Appearance: w ell-nourished individual in no acute distress. The patient is alert and oriented and cooperative for evaluation. HEENT: unremarkable. Neck, Thyroid : supple. Heart: regular rate. Neurologic Exam: P atient ambulates with an antalgic gait, pitched forward. Skin normal, no rash. Extremities: no clubbing, no edema. ? C ervical Spine/Neck: Motor strength: m otor strength symmetric and 5/5, DTRs symmetric and 2+/4. Paraspinal muscle spasm: D iffuse tenderness with spasms noted. Sensations: s ensation intact to light palpation, FROM, pulses +2. Vertebral spine tenderness: t enderness over the facets bilaterally. Range of motion of neck: R OM moderately limited ROM particularly w/ bilateral rotation, moderate pain induced. L umbar Spine/Lower Back: Palpation: d iffused tenderness exasgerated kifosis.? Inspection: Spinal alignment no abnormal curvature noted.? Straight leg raising test: negative bilaterally. Sensory exam: s ensation intact to light touch throughout bilateral lower extremities, no edema or discoloration noted. Motor system: m otor strength 5/5 in all muscle groups bilaterally. Range of motion: Flexion: 1 0 degrees, with pain Extension: 0 degrees, with pain. Patricks test Normal bilaterally . Assessment: * Assessment: 1. 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 S pondylosis without myelopathy or radiculopathy, lumbar region - M47.816 3 . S pondylosis without myelopathy or radiculopathy, thoracolumbar region - M47.815 March 03, 2024: The patien t presents to the [facility] office in [facility] for an audiovisual-telemedicine visit. The patient was evaluated by the infertility medical assistant and a urine drug screen was obtained as well as vital signs. Portions of the physical examination were assisted by the infertility medical assistant during the audiovisual-telemedicine visit Review of history: Ms. Deleon is a 78-year-old who presents today on referral from Dr. Scott for continuing management of chronic back and neck pain. She has had a longstanding history of degenerative disc disease along with scoliosis and spondylosis. She was managed by Dr. Scott until his halfway about 6 months ago. She was not able to get into see any pain doctors and her area as she states they were not taking on new patients for medication management along. Her diagnostic studies are consistent with the thoracolumbar spondylosis. Symptomatically she cannot sit for long periods of time stand for long periods of time or stand bent slightly flexed without pain. She states she has undergone injection therapy in the past and those do not do her any good. I reviewed with her that if we focus on the facet joints as opposed to the disc bulging at that perhaps the injections would be beneficial but she is still very apprehensive. Continue Keller 7.5/325 1 p.o. 3 times daily. She denies side effect of that medicine. Na and UDS were reviewed. Opioid risk assessment is moderate. March 03, 2024: Ms. Isatu Deleon is a 78-year-old lady who presents with chronic back pain. Her pain today is 10/10. She missed her last appointment apparently because she did not have a ride to the office. She has been out of her medications as well. She complains of muscle spasms in her back. There have been no changes in her overall condition. We will refill the hydrocodone and add Norgesic for muscle relaxation. Will see the patient back in 1 months. No changes in her overall condition. Plan: * Treatment: * Follow Up: 4 Weeks * * Electronic signature of Steven Crain M.D. on 12/13/2024 at 11:09 AM PERMACULTURE DESIGNER Sign off status: Pending * Provider: Joss Crain MD Date: 0 04/07/2024 Generated for Denzel pelayo/Taylor/Rachel on: 02/13/2024 11:09 AM PERMACULTURE DESIGNER History and Physical Notes * HPI (History of Present Illness) Category Sub-Category Detail Notes Category Not es PAIN MANAGEMENT TREATMENT HISTORY SUMMARY OF INITIAL EVALUATION: 10/06/2023 New patient consult [facility] by Bear Scott MD for chronic back pain Pain began unknown without accident. Severe Pain Low back pain patient dont recall much Ms. Deleon is a 78-year-old who presents today on referral from Dr. Scott for continuing management of chronic back and neck pain. She has had a longstanding history of degenerative disc disease along with scoliosis and spondylosis. She was managed by Dr. Scott until his halfway about 6 months ago. She was not able to get into see any pain doctors and her area as she states they were not taking on new patients for medication management along. Her diagnostic studies are consistent with the thoracolumbar spondylosis. Symptomatically she cannot sit for long periods of time stand for long periods of time or stand bent slightly flexed without pain. She states she has undergone injection therapy in the past and those do not do her any good. I reviewed with her that if we focus on the facet joints as opposed to the disc bulging at that perhaps the injections would be beneficial but she is still very apprehensive. Medication hamilton she had relied on Keller 10/325 1 p.o. 3 times daily. She has not taken this medication in greater than 6 months. We will resume treatment with the Keller 7.5/325 1 p.o. 3 times daily. She denies side effect of that medicine. Na and UDS were reviewed. Opioid risk assessment is moderate. IMAGING HISTORY: 01/20/2024 XR Multiple spine - Mild left curvature and moderate degenerative change without acute bony abnormality. Lumbar spine - AP and lateral views of the lumbar spine were obtained. There is no prior exam for compariosn. There is no acute fracture. There is dixtroscoliosis of the lumbar spine. Vertebral body height is preserved. Moderate degenerative change is present. Vascular calcifations are noted. Dextroscoliosis with moderate multilevel degenerative change. No acute bony abnormality identifited PHYSICAL/AQUA THERAPY/DME/OTHER HISTORY: No therapies reported PERTINENT SURGICAL EVALUATIONS/SPECIALIST CONSULTS No prior surgical consult PREVIOUS INJECTION\PROCEDURE HISTORY: Denies PREVIOUS PAIN CLINIC CARE: Denies COMPLIANCE RISK ASSESSMENT AND STRATIFICATI ON: RISK GROUP: URINE DRUG TESTIN10/06/2023 Screen Expected 11/30/2023 Screen Expected 12/27/2023 MONITORING: Morphine Equivalent (MME): 0 NA reviewed today and appropriate TESTING/RISK ASSESSMENTS ORT Score/Result: 0 TODAYS PAIN EVALUATION MEDICATION FOLLOW UP: The patient is currently prescribed Keller 7.5 TID, which provides 100% relief of pain symptoms for 4 hours. The last dose was taken in 2023. Denies side effects CURRENT PAIN SYMPTOMS: Location of Worst Pain:: Low Back Pain Frequency:: constant Pain Description:: aching Average Pain Score VAS:: 10 Pain Exacerbation:: Everything Pain Alleviation:: medications ADL/Quality of Life Interference:: Every thing Examination Category Sub-Category Detail Notes Category Not es General Examination HEENT: unremarkable Neck, Thyroid : supple Heart: regular rate Extremities: no clubbing, no yolanda a General Appearance: well-nourished indiv idual in no acute distress. The patient is alert and oriented and cooperative for evaluation Skin normal, no rash Neurologic Exam: Patient ambulates wi th an antalgic gait, pitched forward Nurse/Senior Ecologist: Alexy (Violeta)Issac 03/03/2024 2:47:13 PM > Cervical Spine/Neck Vertebral spine tenderness: tenderness over the facets bilaterally Paraspinal muscle spasm: Diffuse tendern ess with spasms noted Range of motion of neck: ROM moderately limited ROM particularly w/ bilateral rotation, moderate pain induced Sensations: sensation intact to light palpation, FROM, pulses +2 Motor strength: motor strength symme tric and 5/5, DTRs symmetric and 2+/4 Inspection: Lumbar Spine/Lower Back Straight leg raising test: neg ative bilaterally Motor system: motor strength 5/5 i n all muscle groups bilaterally Sensory exam: sensation intact to light touch throughout bilateral lower extremities, no edema or discoloration noted Range of motion: Flexion: 10 degrees, with pain Extension: 0 degrees, with pain Inspection: Spinal alignment no abnormal curvature noted Palpation: diffused tenderness exasgerated kifosis Patricks test Normal bilaterally
--- OUTSIDE RECORDS SUMMARY | 2024-04-10 05:45 | XMS_ITS ---
Author Organization [facility] Address [address] [place] [address] Care Team Providers Care News Camera Operator Name Role Phone Kyra Ortiz APRN, Mem Primary Care Provider Unavailable Ned Caceres II Unavailable Adolfo, Bear Unavailable Unavailable Allergies No Known Allergies REASON FOR VISIT low back pain Medications Medication SIG (Take, Route, Frequency, Duration) Notes Start Date End Date Status Acetaminophen-Hydroco done Bitartrate 325 mg-7.5 mg 1 tab(s) orally TID; Duration: 28 days FEBRUARY 2024 RX DO NOT FILL SOONER THAN 28 DAYS (OK TO FILL EARLY, ONLY IF CLOSED) Active ASA/Caffeine/Orphenad rine 385 mg-30 mg-25 mg 1 tab(s) orally 3 times a day; Duration: 30 day(s) Active tiZANidine 4 mg 1 tab(s) orally 3 times a day; Duration: 30 day(s) 11/19/2022 Active meloxicam 15 mg TAKE ONE TABLET BY MOUTH DAILY WITH FOOD; Duration: 90 Active Levemir FlexPen 100 units/mL ; Duration: 82 Active lovastatin 10 mg ; Duration: 90 Active candesartan 8 mg 1 tab(s) orally once a day; Duration: 30 day(s) 11/19/2022 Active sotalol 80 mg 1 tab(s) orally 2 times a day; Duration: 30 day(s) 11/19/2022 Active sertraline 100 mg 1 tab(s) orally once a day; Duration: 30 day(s) 11/19/2022 Active metFORMIN 500 mg 1 tab(s) orally 2 times a day; Duration: 30 day(s) 11/19/2022 Active amLODIPine 10 mg 1 tab(s) orally once a day; Duration: 30 day(s) 11/19/2022 Active gabapentin 300 mg TAKE ONE CAPSULE BY MOUTH AT BEDTIME; Duration: 30 Active clonazePAM 1 mg ; Duration: 30 Active alendronate 70 mg ; Duration: 84 Active Encounters Encounter Location Date Provider Diagnosis [facility] [address] [place] [address] 04/10/2024 Ned Caceres Other joint terminal attack controller (current) drug therapy Z79.899 ; Spondylosis without myelopathy or radiculopathy, lumbar region M47.816 and Spondylosis without myelopathy or radiculopathy, 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 refill Cra[place] 7.5/325mg TID 2. Start Norgesic TID 3. 1 month follow up March 03, 2024: The patient presents to the [facility] office in [facility] for an audiovisual-teleme dicine visit. The patient was evaluated by the medical microbiologist and a urine drug screen was obtained as well as vital signs. Portions of the physical examination were assisted by the medical microbiologist during the audiovisual-teleme dicine visit Review of history: Ms. Deleon is a 78-year-old who presents today on referral from Dr. Scott for continuing management of chronic back and neck pain. She has had a longstanding history of degenerative disc disease along with scoliosis and spondylosis. She was managed by Dr. Scott until his longterm about 6 months ago. She was not [...] but she is still very apprehensive. Continue [place] 7.5/325 1 p.o. 3 times daily. She [...] months. No changes in her overall condition. 04/10/2024 Spondylosis without myelopathy or radiculopathy, lumbar region (ICD-10 - M47.816) March 03, 2024: The patient presents to the [facility] office in [facility] for an audiovisual-teleme dicine visit. The patient was evaluated by the medical microbiologist and a urine drug screen was obtained as well as vital signs. Portions of the physical examination were assisted by the medical microbiologist during the audiovisual-teleme dicine visit Review of history: Ms. Deleon is a 78-year-old who presents today on referral from Dr. Scott for continuing management of chronic back and neck pain. She has had a longstanding history of degenerative disc disease along with scoliosis and spondylosis. She was managed by Dr. Scott until his longterm about 6 months ago. She was not [...] but she is still very apprehensive. Continue [place] 7.5/325 1 p.o. 3 times daily. She [...] months. No changes in her overall condition. 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 The patient was evaluated by the medical microbiologist and a urine drug screen was obtained as well as vital signs. Portions of the physical examination were assisted by the medical microbiologist during the audiovisual-teleme dicine visit Review of history: Ms. Deleon is a 78-year-old who presents today on referral from Dr. Scott for continuing management of chronic back and neck pain. She has had a longstanding history of degenerative disc disease along with scoliosis and spondylosis. She was managed by Dr. Scott until his longterm about 6 months ago. She was not [...] but she is still very apprehensive. Continue [place] 7.5/325 1 p.o. 3 times daily. She [...] 30 day(s) Treatment Notes Assessment Notes Other joint terminal attack controller (current) drug therapy 03/03/2024 1. refill Cra[place] 7.5/325mg TID 2. Start Norgesic TID 3. 1 month follow up Pending Test Test Name Order Date Urine Test ANALYZER 04/10/2024 Next Appt Details Follow Up: 4 Weeks, Reason: Progress Notes * Surekha DELEONkaylaDOB:1945 (79 yo F)Acc No.[id number]:04/10/2024 Patient: Isatu GALEANO Provider: Lance Caceres II, M.D. :1945 A ge:78 Y S ex:Female Date:04/10/2024 Address:[id number] Pcp:Kyra mace Mem Subjective: * Chief Complaints: * 1 . Low back pain. * HPI: T ODAYS PAIN EVALUATION: MEDICATION FOLLOW UP: T he patient is currently prescribed [place]ville 7.5 TID, which provides 100% relief of pain symptoms for 4 h ours. The last dose was taken in 2023. Denies side effects. C URRENT PAIN SYMPTOMS: L ocation of Worst Pain: Low Back, P ain Frequency: c onstant, P ain Description: Bang garcía Pain Score VAS: 1 0, P ain Exacerbation: Everything, P ain Alleviation: m edBang garcia DL/Quality of Life Interference: Everything. P AIN [...] identifited . P REVIOUS INJECTION\PROCEDURE HISTORY:? D enkahlil . P HYSICAL/AQUA THERAPY/DME/OTHER HISTORY: N o therapies reported . P ERTINENT SURGICAL EVALUATIONS/SPECIALIST CONSULTS N o prior surgical consult . P REVIOUS PAIN CLINIC CARE: Lance morrissey . S DARIEL OF INITIAL EVALUATION: 0 10/06/2023 New patient [...] was managed by Dr. Scott until his longterm about 6 months ago. She was not [...] M edication hamilton she had relied on Cra[place]ville 10/325 1 p.o. 3 times daily. She has not taken this medication in greater than 6 months. We will resume treatment with the [place] 7.5/325 1 p.o. 3 times daily. She denies side effect of that medicine. Na and UDS were reviewed. Opioid risk assessment is moderate.. C OMPLIANCE: RISK ASSESSMENT AND STRATIFICATION: R ISK GROUP: . U RINE DRUG TESTIN 10/06/2023 Screen Expected 1 Screen Expected 1 02/25/2023 . M ONITORING: M orphine Equivalent (MME): 0 K ASPER reviewed today and appropriate . T ESTING/RISK ASSESSMENTS O RT Score/Result: 0. * ROS: G ENERAL: Fever D enies. H EENT: Sore throat D enies. R ESPIRATORY: Negative for: r espiratory issues. G ASTROINTESTINAL: Negative for abdominal issues. G ENITOURINARY: Negative for genitourinary issues. M USCULOSKELETAL: Positive for l ow back pain. N EUROLOGICAL: Negative for n eurological issues. P SYCHIATRIC: Negative for p sychological issues. E NDOCRINE: Positive for A bnormal blood sugars. * Medical History: A nxiety mananged by pcp, HTN mananged by pcp, Hyperlipidemia ctherm8ka by pcp, Diabetes manangwed by pcp. * Family History: denies family hx of substance abuse. * Medications: T aking alendronate 70 mg tablet , Taking ASA/Caffeine/Orphenadrine 385 mg-30 mg- 25 mg tablet 1 tab(s) orally 3 times a day , Taking clonazePAM 1 mg tablet , Taking gabapentin [...] TABLET BY MOUTH DAILY WITH FOOD , Medication List reviewed and reconciled with the patient * Allergies: N .K.D.A. Objective: * Vitals: * Examination: G eneral Examination: Nurse/Tool Maker Apprentice: Carolyn hanley (MA-Charlie)Malgorzata 03/03/2024 2:47:13 PM > . General Appearance: [...] . Assessment: * Assessment: 1. O ther joint terminal attack controller (current) drug therapy - Z79.899 (Primary) 2 . S pondylosis without myelopathy or radiculopathy, lumbar region - M47.816 3 . S pondylosis without myelopathy or radiculopathy, thoracolumbar region - M47.815 March 03, 2024: The patien christian presents to the [facility] office in [facility] for an audiovisual-telemedicine visit. The patient was evaluated by the medical microbiologist and a urine drug screen was obtained as well as vital signs. Portions of the physical examination were assisted by the medical microbiologist during the audiovisual-telemedicine visit Review of history: Ms. Deleon is a 78-year-old who presents today on referral from Dr. Scott for continuing management of chronic back and neck pain. She has had a longstanding history of degenerative disc disease along with scoliosis and spondylosis. She was managed by Dr. Scott until his longterm about 6 months ago. She was not [...] but she is still very apprehensive. Continue [place] 7.5/325 1 p.o. 3 times daily. She [...] 4 Weeks * * Electronic signature of Jose L Caceres II, M.D. on 12/13/2024 at 11:10 AM TICK INSPECTOR Sign off status: Pending * Provider: Lance Caceres II, M.D. Date: 0 04/10/2024 Generated for Denzel pelayo/Taylor/Rachel on: 02/13/2024 11:10 AM TICK INSPECTOR History and Physical Notes * HPI (History of Present Illness) Category Sub-Category Detail Notes Category Not es PAIN MANAGEMENT TREATMENT HISTORY SUMMARY OF INITIAL EVALUATION: 10/06/2023 [facility] Scott [facility] for chronic back [...] was managed by Dr. Scott until his longterm about 6 months ago. She was not [...] apprehensive. Medication hamilton she had relied on Cra[place] 10/325 1 p.o. 3 times daily. She has not taken this medication in greater than 6 months. We will resume treatment with the [place] 7.5/325 1 p.o. 3 times daily. She [...] FOLLOW UP: The patient is currently prescribed [place] 7.5 TID, which provides 100% relief of [...] wi th an antalgic gait, pitched forward Nurse/Tool Maker Apprentice: Alexy (SCOTT-[facility])Issac 03/03/2024 2:47:13 PM > Cervical Spine/Neck Vertebral [...]
--- OUTSIDE RECORDS SUMMARY | 2024-10-12 10:15 | XMS_ITS ---
Author Organization [facility] Address [address] [place] [address] Care Team Providers Care Emr Implementation Specialist Name Role Phone Kyra Ortiz APRN, Mem Primary Care Provider Unavailable Ned Caceres II Unavailable Adolfo, Bear Unavailable Unavailable Allergies No Known Allergies REASON FOR VISIT low back pain, _delete all pharmacies except one!! Medications Medication SIG (Take, Route, Frequency, Duration) Notes Start Date End Date Status candesartan 8 mg 1 tab(s) orally once a day; Duration: 30 day(s) 11/19/2022 Active amLODIPine 10 mg 1 tab(s) orally once a day; Duration: 30 day(s) 11/19/2022 Active lovastatin 10 mg ; Duration: 90 Active sertraline 100 mg 1 tab(s) orally once a day; Duration: 30 day(s) 11/19/2022 Active metFORMIN 500 mg 1 tab(s) orally 2 times a day; Duration: 30 day(s) 11/19/2022 Active acetaminophen-hydrocod one 325 mg-7.5 mg 1 tab(s) orally 3 times a day; Duration: 30 days MAY 2024 RX, (OK TO FILL EARLY, ONLY IF CLOSED) Active ASA/Caffeine/Orphenadr ine 385 mg-30 mg-25 mg 1 tab(s) orally 3 times a day; Duration: 30 days Active alendronate 70 mg ; Duration: 84 Active gabapentin 300 mg TAKE ONE CAPSULE BY MOUTH AT BEDTIME; Duration: 30 Active clonazePAM 1 mg ; Duration: 30 Active Acetaminophen-Hydrocod one Bitartrate 325 mg-7.5 mg 1 tab(s) orally TID; Duration: 28 days APRIL 2024 RX, DO NOT FILL SOONER THAN 28 DAYS (OK TO FILL EARLY, ONLY IF CLOSED) Active tiZANidine 4 mg 1 tab(s) orally 3 times a day; Duration: 30 day(s) 11/19/2022 Active sotalol 80 mg 1 tab(s) orally 2 times a day; Duration: 30 day(s) 11/19/2022 Active meloxicam 15 mg TAKE ONE TABLET BY MOUTH DAILY WITH FOOD; Duration: 90 Active Levemir FlexPen 100 units/mL ; Duration: 82 Active Encounters Encounter Location Date Provider Diagnosis [facility] [address] [place] [address] 10/12/2024 Ned Caceres Other [facility] (current) drug therapy Z79.899 ; Spondylosis without myelopathy or radiculopathy, lumbar region M47.816 and Spondylosis without myelopathy or radiculopathy, 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 refill [place] 7.5/325mg TID 2. Continue Norgesic TID 3. Reviewed Narcotic Agreement policies, specifically stressed a) pain medication from one provider only b) no illegal drug use c) take pain medication as prescribed, follow directions. 4. 2 month follow up Ms. Deleon returns today for an office visit and medication refill. She was seen by us on initial consultation last September. Over the past year we have simply followed her for medication management. She is not interested in pursuing injection therapy primarily because of apprehension about needlesticks. I did review with her today the process of medial branch block and possible radiofrequency ablation. Her diagnostic imaging studies do reveal facet arthropathy which likely would respond quite well to this. She was requesting escalation in dose on her pain medication today. I have explained to her that higher doses of pain medicines carry risks that exceed their benefits. I would expect the injection therapy could decrease her reliance on the pain medication and make further increases unnecessary. She states that she will think about doing that. Medication hamilton she continues with the [place] 7.5/325 1 p.o. 3 times daily. She denies any side effect to the medication. She states the medication is useful to her about 10 hours a day for tolerance of daily activity. Na and UDS were reviewed today. Opioid risk assessment is low 10/12/2024 Spondylosis without myelopathy or radiculopathy, lumbar region (ICD-10 - M47.816) Ms. Deleon returns today for an office visit and medication refill. She was seen by us on initial consultation last September. Over the past year we have simply followed her for medication management. She is not interested in pursuing injection therapy primarily because of apprehension about needlesticks. I did review with her today the process of medial branch block and possible radiofrequency ablation. Her diagnostic imaging studies do reveal facet arthropathy which likely would respond quite well to this. She was requesting escalation in dose on her pain medication today. I have explained to her that higher doses of pain medicines carry risks that exceed their benefits. I would expect the injection therapy could decrease her reliance on the pain medication and make further increases unnecessary. She states that she will think about doing that. Medication hamilton she continues with the [place] 7.5/325 1 p.o. 3 times daily. She denies any side effect to the medication. She states the medication is useful to her about 10 hours a day for tolerance of daily activity. Na and UDS were reviewed today. 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 Deleon returns today for an office visit and medication refill. She was seen by us on initial consultation september. Over the past year we have simply followed her for medication management. She is not interested in pursuing injection therapy primarily because of apprehension about needlesticks. I did review with her today the process of medial branch block and possible radiofrequency ablation. Her diagnostic imaging studies do reveal facet arthropathy which likely would respond quite well to this. She was requesting escalation in dose on her pain medication today. I have explained to her that higher doses of pain medicines carry risks that exceed their benefits. I would expect the injection therapy could decrease her reliance on the pain medication and make further increases unnecessary. She states that she will think about doing that. Medication hamilton she continues with the [place] 7.5/325 1 p.o. 3 times daily. She denies any side effect to the medication. She states the medication is useful to her about 10 hours a day for tolerance of daily activity. Na and UDS were reviewed today. Opioid risk assessment is low Plan Of Treatment Medication Medication Name Sig Start Date Stop Date Notes acetaminophen-hydrocodon e 325 mg-7.5 mg 1 tab(s) orally 3 times a day; Duration: 30 days MAY 2024 RX, (OK TO FILL EARLY, ONLY IF CLOSED) ASA/Caffeine/Orphenadrin e 385 mg-30 mg-25 mg 1 tab(s) orally 3 times a day; Duration: 30 days Acetaminophen-Hydrocodon e Bitartrate 325 mg-7.5 mg 1 tab(s) orally TID; Duration: 28 days APRIL 2024 RX, DO NOT FILL SOONER THAN 28 DAYS (OK TO FILL EARLY, ONLY IF CLOSED) Treatment Notes Assessment Notes Other joint terminal attack controller (current) drug therapy 08/18/2024 1. refill [place] 7.5/325mg TID 2. Continue Norgesic TID 3. Reviewed Narcotic Agreement policies, specifically stressed a) pain medication from one provider only b) no illegal drug use c) take pain medication as prescribed, follow directions. 4. 2 month follow up Pending Test Test Name Order Date Urine Test ANALYZER 10/12/2024 Next Appt Details Follow Up: 8 Weeks, Reason: Progress Notes * Isatu DELEONDOB:1945 (79 yo F)Acc No.[id number]:10/12/2024 FollowUP Patient: Isatu GALEANO Provider: Lance Caceres II, M.D. :1945 A ge:79 Y S ex:Female Date:10/12/2024 Address:[facility] [facility], [place], [id number] Pcp:Kyra mace Mem Subjective: * Chief Complaints: * 1 . Low back pain. 2. _delete all pharmacies except one!!. * HPI: T ODAYS PAIN EVALUATION: MEDICATION FOLLOW UP: T he patient is currently prescribed [place] 7.5 TID, which provides 100% relief of pain symptoms for 4 h ours. The last dose was taken 08/18/2024. Denies side effects. C URRENT PAIN SYMPTOMS: L ocation of Worst Pain: L ow Back, P ain Frequency: c onstant, P ain Description: Bang garcía Pain Score VAS: 1 0, P ain Exacerbation: Everything, P ain Alleviation: m edications, A DL/Quality of Life Interference: Everything. P AIN [...] abnormality identifited . P REVIOUS INJECTION\PROCEDURE HISTORY:? Lance morrissey . P HYSICAL/AQUA THERAPY/DME/OTHER HISTORY: N o [...] was managed by Dr. Scott until his jail about 6 months ago. She was not [...] M edication hamilton she had relied on [place] 10/325 1 p.o. 3 times daily. She has not taken this medication in greater than 6 months. We will resume treatment with the [place] 7.5/325 1 p.o. 3 times daily. She denies side effect of that medicine. Na and UDS were reviewed. Opioid risk assessment is moderate.. C OMPLIANCE: RISK ASSESSMENT AND STRATIFICATION: R ISK GROUP: MODERATE RISK . U RINE DRUG TESTIN Screen Expected 1 02/25/2023 Screen Expected 0 03/03/2024 Screen Unexpected (neg - due to missing appt) 0 04/13/2024 Screen Unexpected (neg - due to missing appt), Sent for Definitive 0 08/18/2024 . M ONITORING: M orphine Equivalent (MME): 23 K ASPER reviewed today and appropriate . [...] blood sugars. * Medical History: A nxiety diagnosed *, managed by *, HTN diagnosed *, managed by *, Hyperlipidemia diagnosed *, managed by *, Diabetes diagnosed *, managed by *. * Family History: denies family hx of substance abuse. * Medications: T aking ASA/Caffeine/Orphenadrine 385 mg-30 mg-25 mg tablet 1 tab(s) orally 3 times a day , Taking alendronate 70 mg tablet , Taking clonazePAM 1 mg tablet , [...] BY MOUTH DAILY WITH FOOD , Taking acetaminophen-hydrocodone 325 mg-7.5 mg tablet 1 tab(s) orally 3 times a day * Allergies: N .K.D.A. Objective: * Vitals: * Examination: G eneral Examination: Nurse/Renal Dialysis Rn: Kortney Lombardo (MA-Lex) 08/18/2024 02:10:50 PM EDT >. General Appearance: w ell-nourished individual in no acute distress. The patient is alert and oriented and cooperative for evaluation. HEENT: unremarkable. Heart: r egular rate via radial pulse. Neurologic Exam: P atient ambulates with an antalgic gait, pitched forward. Skin visible skin is normal, no rash. ? Assessment: * Assessment: 1. O ther joint terminal attack controller (current) drug therapy - Z79.899 (Primary) 2 . S pondylosis without myelopathy or radiculopathy, lumbar region - M47.816 3 . S pondylosis without myelopathy or radiculopathy, thoracolumbar region - M47.815 Ms. Deleon returns today for a n office visit and medication refill. She was seen by us on initial consultation last September. Over the past year we have simply followed her for medication management. She is not interested in pursuing injection therapy primarily because of apprehension about needlesticks. I did review with her today the process of medial branch block and possible radiofrequency ablation. Her diagnostic imaging studies do reveal facet arthropathy which likely would respond quite well to this. She was requesting escalation in dose on her pain medication today. I have explained to her that higher doses of pain medicines carry risks that exceed their benefits. I would expect the injection therapy could decrease her reliance on the pain medication and make further increases unnecessary. She states that she will think about doing that. Medication hamilton she continues with the [place] 7.5/325 1 p.o. 3 times daily. She denies any side effect to the medication. She states the medication is useful to her about 10 hours a day for tolerance of daily activity. Na and UDS were reviewed today. Opioid risk assessment is low Plan: * Treatment: * Follow Up: 8 Weeks * * Electronic signature of Jose L Caceres II, M.D. on 12/13/2024 at 11:09 AM CREDIT BALANCE SPECIALIST Sign off status: Pending * Provider: Lance Caceres II, M.D. Date: 0 10/12/2024 Generated for Denzel pelayo/Taylor/Rachel on: 1 02/13/2024 11:09 AM CREDIT BALANCE SPECIALIST History and Physical Notes * HPI (History of Present Illness) Category Sub-Category Detail Notes Category Not es PAIN MANAGEMENT TREATMENT HISTORY SUMMARY OF INITIAL EVALUATION: 10/06/2023 New patient consult [facility] by Bear Scott MD for chronic [...] was managed by Dr. Scott until his jail about 6 months ago. She was not [...] apprehensive. Medication hamilton she had relied on [place] 10/325 1 p.o. 3 times daily. She has not taken this medication in greater than 6 months. We will resume treatment with the [place] 7.5/325 1 p.o. 3 times daily. She [...] RISK ASSESSMENT AND STRATIFICATI ON: RISK GROUP: MODERATE RISK URINE DRUG TESTIN11/30/2023 Screen Ex pected 12/27/2023 Screen Expected 03/03/2024 Screen Unexpected (neg - due to missing appt) 04/13/2024 Screen Unexpected (neg - due to missing appt), Sent for Definitive 08/18/2024 MONITORING: Morphine Equivalent (MME): 23 NA reviewed today and appropriate TESTING/RISK ASSESSMENTS ORT Score/Result: 0 TODAYS PAIN EVALUATION MEDICATION FOLLOW UP: The patient is currently prescribed [place] 7.5 TID, which provides 100% relief of pain symptoms for 4 hours. The last dose was taken 08/18/2024. Denies side effects CURRENT PAIN SYMPTOMS: Location of Worst Pain:: Low Back Pain Frequency:: constant Pain Description:: aching Average Pain Score VAS:: 10 Pain Exacerbation:: Everything Pain Alleviation:: medications ADL/Quality of Life Interference:: Every thing Examination Category Sub-Category Detail Notes Category Not es General Examination HEENT: unremarkable Heart: regular rate via rad ial pulse General Appearance: well-nourished indiv idual in no acute distress. The patient is alert and oriented and cooperative for evaluation Skin visible skin is norm al, no rash Neurologic Exam: Patient ambulates wi th an antalgic gait, pitched forward Nurse/Renal Dialysis Rn: Billie Emmanuel (MA-Lex) 08/18/2024 02:10:50 PM EDT >
--- OUTSIDE RECORDS SUMMARY | 2024-10-25 10:30 | XMS_ITS ---
Author Organization [facility] Address [address] [place] [address] Care Team Providers Care Still Worker Helper Name Role Phone Kyra Ortiz APRN, Mem Primary Care Provider Unavailable Ned Caceres II Unavailable [phone] Bear Mata Unavailable Unavailable Allergies No Known Allergies REASON FOR VISIT low back pain Medications Medication SIG (Take, Route, Frequency, Duration) Notes Start Date End Date Status acetaminophen-hydrocod one 325 mg-7.5 mg 1 tab(s) orally 3 times a day; Duration: 30 days MAY 2024 RX, (OK TO FILL EARLY, ONLY IF CLOSED) Active ASA/Caffeine/Orphenadr ine 385 mg-30 mg-25 mg 1 tab(s) orally 3 times a day; Duration: 30 days Active Levemir FlexPen 100 units/mL ; Duration: 82 Active meloxicam 15 mg TAKE ONE TABLET BY MOUTH DAILY WITH FOOD; Duration: 90 Active tiZANidine 4 mg 1 tab(s) orally 3 times a day; Duration: 30 day(s) 11/19/2022 Active candesartan 8 mg 1 tab(s) orally once a day; Duration: 30 day(s) 11/19/2022 Active Acetaminophen-Hydrocod one Bitartrate 325 mg-7.5 mg 1 tab(s) orally TID; Duration: 28 days APRIL 2024 RX, DO NOT FILL SOONER THAN 28 DAYS (OK TO FILL EARLY, ONLY IF CLOSED) Active sotalol 80 mg 1 tab(s) orally [...] BY MOUTH AT BEDTIME; Duration: 30 Active lovastatin 10 mg 1 tab(s) orally once a day Active Encounters Encounter Location Date Provider Diagnosis [facility] [address] [place] [address] 10/25/2024 Ned Caceres Other half-way (current) drug therapy Z79.899 ; Spondylosis without myelopathy or radiculopathy, lumbar region M47.816 and Spondylosis without myelopathy or radiculopathy, 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 refill Lancing 7.5/325mg TID 2. Continue Norgesic TID 3. [...] that. Medication hamilton she continues with the L[place] 7.5/325 1 p.o. 3 times daily. She denies any side effect to the medication. She states the medication is useful to her about 10 hours a day for tolerance of daily activity. Na and UDS were reviewed today. Opioid risk assessment is low 10/25/2024 Spondylosis without myelopathy or radiculopathy, lumbar region [...] that. Medication hamilton she continues with the L[place] 7.5/325 1 p.o. 3 times daily. She denies any side effect to the medication. She states the medication is useful to her about 10 hours a day for tolerance of daily activity. Na and UDS were reviewed today. Opioid risk assessment is low 10/25/2024 Spondylosis without myelopathy or radiculopathy, thoracolumbar region [...] that. Medication hamilton she continues with the L[place] 7.5/325 1 p.o. 3 times daily. She [...] IF CLOSED) Treatment Notes Assessment Notes Other exterminator helper (current) drug therapy 08/18/2024 1. refill Lancing 7.5/325mg TID 2. Continue Norgesic TID 3. Reviewed Narcotic Agreement policies, specifically stressed a) pain medication from one provider only b) no illegal drug use c) take pain medication as prescribed, follow directions. 4. 2 month follow up Pending Test Test Name Order Date Urine Test ANALYZER 10/25/2024 Next Appt Details Follow Up: 8 Weeks, Reason: Progress Notes * DELEONIsatuDOB:1945 (79 yo F)Acc No.[id number]:10/25/2024 Patient: Isatu GALEANO Provider: Lance Caceres II, M.D. :1945 A ge:79 Y S ex:Female Date:10/25/2024 Address:[place] [address], [facility] [id number] Pcp:Kyra mace Mem Subjective: * Chief Complaints: * 1 . Low back pain. * HPI: T ODAYS PAIN EVALUATION: MEDICATION FOLLOW UP: T he patient is currently prescribed Lancing 7.5 TID, which provides 100% relief of pain symptoms for 4 h ours. The last dose was taken 08/18/2024. Denies side effects. C URRENT PAIN SYMPTOMS: L ocation of Worst Pain: L ow Back, P ain Frequency: c onstant, P ain Description: a Bang benavidez Pain Score VAS: 1 0, P ain Exacerbation: Everything, P ain Alleviation: m sam, Bang DL/Quality of Life Interference: Everything. P AIN [...] PAIN CLINIC CARE: D [facility] . S DARIEL OF INITIAL EVALUATION: 0 [...] was managed by Dr. Scott until his [facility] about 6 months ago. She was not [...] M edication hamilton she had relied on Intelipost 10325 1 p.o. 3 times daily. She has not taken this medication in greater than 6 months. We will resume treatment with the L[place] 7.5/325 1 p.o. 3 times daily. She denies side effect of that medicine. Na and UDS were reviewed. Opioid risk assessment is moderate.. C OMPLIANCE: RISK ASSESSMENT AND STRATIFICATION: R ISK GROUP: MODERATE RISK . U RINE DRUG TESTIN 10/06/2023 Screen Expected 1 Screen Expected 1 02/25/2023 Screen Expected 0 [...] sugars. * Medical History: A nxiety diagnosed managed by pcp, HTN diagnosed, managed by pcp, Hyperlipidemia diagnosed unknown managed by pcp, Diabetes diagnosed unknown managed by pcp. * Surgical History: D enkahlil Past Surgical History. * Hospitalization/Major Diagno stic Procedure: D yuni Past Hospitalization. * Family History: N on-Contributory. denies family hx of substance abuse. * Medications: T aking lovastatin 10 mg tablet 1 tab(s) orally once a day , Taking ASA/Caffeine/Orphenadrine 385 mg-30 mg-25 mg tablet 1 tab(s) orally 3 times a day , Taking acetaminophen-hydrocodone 325 mg-7.5 mg tablet 1 tab(s) orally 3 times a day , Taking gabapentin 300 mg capsule TAKE ONE CAPSULE BY MOUTH AT BEDTIME , Taking amLODIPine 10 mg tablet 1 tab(s) orally once a day , Taking candesartan 8 mg tablet 1 tab(s) orally once a day , Taking metFORMIN 500 mg tablet 1 [...] ONE TABLET BY MOUTH DAILY WITH FOOD * Allergies: N .K.D.A. Objective: * Vitals: * Examination: G eneral Examination: Nurse/Cmm Operator: Cynthia bradyMA-Kortney Abad 08/18/2024 02:10:50 PM EDT >. General Appearance: w ell-nourished individual in no acute distress. The patient is alert and oriented and cooperative for evaluation. HEENT: unremarkable. Heart: r egular rate via radial pulse. Neurologic Exam: P atient ambulates with an antalgic gait, pitched forward. Skin visible skin is normal, no rash. ? Assessment: * Assessment: 1. O ther exterminator helper (current) drug therapy - Z79.899 (Primary) 2 [...] that. Medication hamilton she continues with the Lancing 7.5/325 1 p.o. 3 times daily. She [...] II, M.D. on 12/13/2024 at 11:10 AM RADIO NEWS WRITER Sign off status: Pending * Provider: Lance Caceres II, M.D. Date: 0 10/25/2024 Generated for Denzel pelayo/Taylor/Rachel on: 1 02/13/2024 11:10 AM RADIO NEWS WRITER History and Physical Notes * HPI (History of Present Illness) Category Sub-Category Detail Notes Category Not es PAIN MANAGEMENT TREATMENT HISTORY SUMMARY OF INITIAL EVALUATION: 10/06/2023 New patient consult [facility] by Bear Scott MD for chronic back [...] was managed by Dr. Scott until his [facility] about 6 months ago. She was not [...] apprehensive. Medication hamilton she had relied on Lancing 10/325 1 p.o. 3 times daily. She has not taken this medication in greater than 6 months. We will resume treatment with the Lancing 7.5/325 1 p.o. 3 times daily. She [...] ON: RISK GROUP: MODERATE RISK URINE DRUG TESTIN10/06/2023 Screen Ex pected 11/30/2023 Screen Expected 12/27/2023 Screen Expected 03/03/2024 Screen Unexpected (neg - due to missing appt) 04/13/2024 Screen Unexpected (neg - due to missing appt), Sent for Definitive 08/18/2024 MONITORING: Morphine Equivalent (MME): 23 NA reviewed today and appropriate TESTING/RISK ASSESSMENTS ORT Score/Result: 0 TODAYS PAIN EVALUATION MEDICATION FOLLOW UP: The patient is currently prescribed Lancing 7.5 TID, which provides 100% relief of [...] wi th an antalgic gait, pitched forward Nurse/Cmm Operator: Billie Emmanuel (MA-Lex) 08/18/2024 02:10:50 PM EDT >
--- OUTSIDE RECORDS SUMMARY | 2024-11-07 10:00 | XMS_ITS ---
Author Organization [facility] Address [address] [place] [address] Care Team Providers Care Heating And Air Conditioning Mechanic Name Role Phone Kyra Ortiz APRN, Mem Primary Care Provider Unavailable Ned Caceres II Unavailable Bear Mata Unavailable Unavailable Allergies No Known Allergies REASON FOR VISIT low back pain Medications Medication SIG (Take, Route, Frequency, Duration) Notes Start Date End Date Status Acetaminophen-Hydrocod one Bitartrate 325 mg-7.5 mg 1 tab(s) orally TID; Duration: 28 days APRIL 2024 RX, DO NOT FILL SOONER THAN 28 DAYS (OK TO FILL EARLY, ONLY IF CLOSED) Active ASA/Caffeine/Orphenadr ine 385 mg-30 mg-25 mg 1 tab(s) orally 3 times a day; Duration: 30 days Active Levemir FlexPen 100 units/mL ; Duration: 82 Active tiZANidine 4 mg 1 tab(s) orally 3 times a day; Duration: 30 day(s) 11/19/2022 Active meloxicam 15 mg TAKE ONE TABLET BY MOUTH DAILY WITH FOOD; Duration: 90 Active amLODIPine 10 mg 1 tab(s) orally [...] 30 day(s) 11/19/2022 Active lovastatin 10 mg 1 tab(s) orally once a day Active gabapentin 300 mg TAKE ONE CAPSULE BY MOUTH AT BEDTIME; Duration: 30 Active clonazePAM 1 mg ; Duration: 30 Active alendronate 70 mg ; Duration: 84 Active lovastatin 10 mg ; Duration: 90 Active acetaminophen-hydrocod one 325 mg-7.5 mg 1 tab(s) orally 3 times a day; Duration: 30 days MAY 2024 RX, (OK TO FILL EARLY, ONLY IF CLOSED) Active Encounters Encounter Location Date Provider Diagnosis [facility] [address] [place] [address] 11/07/2024 Ned Caceres Other intermediate card tender (current) drug therapy Z79.899 ; Spondylosis without myelopathy or radiculopathy, lumbar region M47.816 and Spondylosis without myelopathy or radiculopathy, 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 refill [place] 7.5/325mg TID 2. Continue Norgesic TID 3. [...] that. Medication hamilton she continues with the [place] 7.5/325 1 p.o. 3 times daily. She denies any side effect to the medication. She states the medication is useful to her about 10 hours a day for tolerance of daily activity. Na and UDS were reviewed today. Opioid risk assessment is low 11/07/2024 Spondylosis without myelopathy or radiculopathy, lumbar region [...] that. Medication hamilton she continues with the [place] 7.5/325 1 p.o. 3 times daily. She denies any side effect to the medication. She states the medication is useful to her about 10 hours a day for tolerance of daily activity. Na and UDS were reviewed today. Opioid risk assessment is low 11/07/2024 Spondylosis without myelopathy or radiculopathy, thoracolumbar region [...] that. Medication hamilton she continues with the [place] 7.5/325 1 p.o. 3 times daily. She [...] 3 times a day; Duration: 30 days acetaminophen-hydrocodon e 325 mg-7.5 mg 1 tab(s) orally 3 times a day; Duration: 30 days MAY 2024 RX, (OK TO FILL EARLY, ONLY IF CLOSED) Treatment Notes Assessment Notes Other intermediate card tender (current) drug therapy 08/18/2024 1. refill [place] 7.5/325mg TID 2. Continue N[place] TID 3. Reviewed Narcotic Agreement policies, specifically stressed a) pain medication from one provider only b) no illegal drug use c) take pain medication as prescribed, follow directions. 4. 2 month follow up Pending Test Test Name Order Date Urine Test ANALYZER 11/07/2024 Next Appt Details Follow Up: 8 Weeks, Reason: Progress Notes * DELEON, IsatuDOB:1945 (79 yo F)Acc No.[id number]:11/07/2024 FollowUP Patient: Isatu GALEANO Provider: Lance Caceres II, M.D. :1945 A ge:79 Y S ex:Female Date:11/07/2024 Address:[facility] [address] [address] [place] [address], [id number] Pcp:Kyra mace Mem Subjective: * Chief Complaints: * 1 . Low back pain. * HPI: T ODAYS PAIN EVALUATION: MEDICATION FOLLOW UP: T he patient is currently prescribed [place] 7.5 TID, which provides 100% relief of [...] PAIN CLINIC CARE: Lance morrissey . S UMMARY OF INITIAL EVALUATION: 0 [...] was managed by Dr. Scott until his prison about 6 months ago. She was not [...] M edication hamilton she had relied on W[place]ster 10/325 1 p.o. 3 times daily. She has not taken this medication in greater than 6 months. We will resume treatment with the [place] 7.5/325 1 p.o. 3 times daily. She [...] managed by pcp. * Surgical History: D enies Past Surgical History. * Hospitalization/Major Diagno stic Procedure: D enies Past Hospitalization. * Family History: N on-Contributory. denies family hx of substance abuse. * Medications: T aking alendronate 70 mg tablet , Taking clonazePAM 1 mg tablet , Taking lovastatin 10 mg tablet , Taking Acetaminophen-Hydrocodone Bitartrate 325 mg-7.5 mg tablet 1 tab(s) orally TID , Taking ASA/Caffeine/Orphenadrine 385 mg-30 mg-25 mg tablet 1 tab(s) orally 3 times a day , Taking acetaminophen-hydrocodone 325 mg-7.5 mg tablet 1 tab(s) orally 3 times a day , Taking lovastatin 10 mg tablet 1 tab(s) orally once a day , Taking gabapentin 300 mg [...] * Vitals: * Examination: G eneral Examination: Nurse/Hip Hop Dancer: Cynthia Madrigal-Kortney Abad 08/18/2024 02:10:50 PM EDT >. General Appearance: w ell-nourished individual in no acute distress. The patient is alert and oriented and cooperative for evaluation. HEENT: unremarkable. Heart: r egular rate via radial pulse. Neurologic Exam: P atient ambulates with an antalgic gait, pitched forward. Skin visible skin is normal, no rash. ? Assessment: * Assessment: 1. O ther nursing home (current) drug therapy - Z79.899 (Primary) 2 [...] that. Medication hamilton she continues with the [place] 7.5/325 1 p.o. 3 times daily. She [...] II, M.D. on 12/13/2024 at 11:09 AM DOCUMENTATION SPECIALIST Sign off status: Pending * Provider: Lance Caceres II, M.D. Date: 0 11/07/2024 Generated for Denzel pelaoy/Taylor/Rachel on: 1 02/13/2024 11:09 AM DOCUMENTATION SPECIALIST History and Physical Notes * HPI (History of Present Illness) Category Sub-Category Detail Notes Category Not es PAIN MANAGEMENT TREATMENT HISTORY SUMMARY OF INITIAL EVALUATION: 10/06/2023 New patient consult [facility] by Bear Scott MD for chronic [...] was managed by Dr. Scott until his prison about 6 months ago. She was not [...] apprehensive. Medication hamilton she had relied on W[place] 10/325 1 p.o. 3 times daily. She has not taken this medication in greater than 6 months. We will resume treatment with the [place] 7.5/325 1 p.o. 3 times daily. She [...] FOLLOW UP: The patient is currently prescribed [place] 7.5 TID, which provides 100% relief of [...] wi th an antalgic gait, pitched forward Nurse/Hip Hop Dancer: Tammie)Billie 08/18/2024 02:10:50 PM EDT >
--- OUTSIDE RECORDS SUMMARY | 2024-11-10 11:00 | XMS_ITS ---
Author Organization [facility] Address [address] [place] [address] Care Team Providers Care Services Tech Name Role Phone Kyra Ortiz APRN, Mem Primary Care Provider Unavailable Ned Caceres II Unavailable [phone] Adolfo, Bear Unavailable Unavailable REASON FOR VISIT low back pain Medications [...] 1 tab(s) orally once a day Active metFORMIN 500 mg 1 tab(s) orally 2 times a day; Duration: 30 day(s) 11/19/2022 Active clonazePAM 1 mg ; Duration: 30 Active alendronate 70 mg ; Duration: 84 Active acetaminophen-hydrocod one 325 mg-7.5 mg 1 tab(s) orally 3 times a day; Duration: 30 days MAY 2024 RX, (OK TO FILL EARLY, ONLY IF CLOSED) Active ASA/Caffeine/Orphenadr ine 385 mg-30 mg-25 mg 1 tab(s) orally 3 times a day; Duration: 30 days Active Acetaminophen-Hydrocod one Bitartrate 325 mg-7.5 mg 1 tab(s) orally TID; Duration: 28 days APRIL 2024 RX, DO NOT FILL SOONER THAN 28 DAYS (OK TO FILL EARLY, ONLY IF CLOSED) Active meloxicam 15 mg TAKE ONE TABLET [...] Diagnosis [facility] [address] [place] [address] 11/10/2024 Ned Caceres Other retirement (current) drug therapy Z79.899 ; Spondylosis without myelopathy or radiculopathy, lumbar region M47.816 and Spondylosis without myelopathy or radiculopathy, 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 refill [place] 7.5/325mg TID 2. Continue Norgesic TID 3. [...] that. Medication hamilton she continues with the [place] 7.5/325 1 p.o. 3 times daily. She denies any side effect to the medication. She states the medication is useful to her about 10 hours a day for tolerance of daily activity. Na and UDS were reviewed today. Opioid risk assessment is low 11/10/2024 Spondylosis without myelopathy or radiculopathy, lumbar region [...] that. Medication hamilton she continues with the [place] 7.5/325 1 p.o. 3 times daily. She denies any side effect to the medication. She states the medication is useful to her about 10 hours a day for tolerance of daily activity. Na and UDS were reviewed today. Opioid risk assessment is low 11/10/2024 Spondylosis without myelopathy or radiculopathy, thoracolumbar region [...] that. Medication hamilton she continues with the [place] 7.5/325 1 p.o. 3 times daily. She [...] IF CLOSED) Treatment Notes Assessment Notes Other retirement (current) drug therapy 08/18/2024 1. refill [place] 7.5/325mg TID 2. Continue Norgesic TID 3. Reviewed Narcotic Agreement policies, specifically stressed a) pain medication from one provider only b) no illegal drug use c) take pain medication as prescribed, follow directions. 4. 2 month follow up Pending Test Test Name Order Date Urine Test ANALYZER 11/10/2024 Next Appt Details Follow Up: 8 Weeks, Reason: Progress Notes * Isatu DELEONDOB:1945 (79 yo F)Acc No.[id number]:11/10/2024 FollowUP Patient: Isatu GALEANO Provider: Lance Caceres II, M.D. Resource:Bear (SON EMERGENCY VEHICLE TECHNICIAN-BC-CHARLIENisreen Perla :1945 A ge:79 Y S ex:Female Date:11/10/2024 Address:[address] [place] [address] [id number] Pcp:Kyra mace Mem Subjective: * Chief Complaints: * 1 . Low back pain. * HPI: T ODAYS PAIN EVALUATION: MEDICATION FOLLOW UP: T he patient is currently prescribed [place] 7.5 TID, which provides 100% relief of [...] identifited . P REVIOUS INJECTION\PROCEDURE HISTORY:? D yuni . P HYSICAL/AQUA THERAPY/DME/OTHER HISTORY: N o therapies reported . P ERTINENT SURGICAL EVALUATIONS/SPECIALIST CONSULTS N o prior surgical consult . P REVIOUS PAIN CLINIC CARE: Lance morrissey . S UMMARWayne OF INITIAL EVALUATION: 0 10/06/2023 New patient [...] was managed by Dr. Scott until his alf about 6 months ago. She was not [...] M edication hamilton she had relied on [place] 10/325 1 p.o. 3 times daily. She has not taken this medication in greater than 6 months. We will resume treatment with the [place] 7.5/325 1 p.o. 3 times daily. She [...] sugars. * Medical History: A nxiety diagnosed * managed by pcp, HTN diagnosed* managed by pcp, Hyperlipidemia diagnosed unknown managed by pcp, Diabetes diagnosed unknown managed by pcp. * Family History: denies family hx of substance abuse. * Medications: T aking ASA/Caffeine/Orphenadrine 385 mg-30 mg-25 mg tablet 1 tab(s) orally 3 times a day , Taking acetaminophen-hydrocodone 325 mg-7.5 mg tablet 1 tab(s) orally 3 times a day , Taking alendronate 70 mg tablet , Taking clonazePAM 1 mg tablet , Taking lovastatin 10 mg tablet 1 [...] List reviewed and reconciled with the patient Objective: * Vitals: * Examination: G eneral Examination: Nurse/Train Attendant: Cynthia Madrigal-Charlie)Kortney 08/18/2024 02:10:50 PM EDT >. General Appearance: w ell-nourished individual in no acute distress. The patient is alert and oriented and cooperative for evaluation. HEENT: unremarkable. Heart: r egular rate via radial pulse. Neurologic Exam: P atient ambulates with an antalgic gait, pitched forward. Skin visible skin is normal, no rash. ? Assessment: * Assessment: 1. 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 Medication hamilton she continues with the [place] 7.5/325 1 p.o. 3 times daily. She denies any side effect to the medication. She states the medication is useful to her about 10 hours a day for tolerance of daily activity. Na and UDS were reviewed today. Opioid risk assessment is low Plan: * Treatment: * Follow Up: 8 Weeks * * Electronic signature of Jose L Cacerse II, M.D. on 12/13/2024 at 11:08 AM PARK SUPERINTENDENT Sign off status: Pending * Provider: Lance Caceres II, M.D. Date: Generated for Denzel pelayo/Taylor/Rachel on: 02/13/2024 11:08 AM PARK SUPERINTENDENT History and Physical Notes * HPI (History of Present Illness) Category Sub-Category Detail Notes Category Not es PAIN MANAGEMENT TREATMENT HISTORY SUMMARY OF INITIAL EVALUATION: 10/06/2023 New patient consult [facility] by Bear Scott MD for chronic back [...] was managed by Dr. Scott until his alf about 6 months ago. She was not [...] apprehensive. Medication hamilton she had relied on [place] 10/325 1 p.o. 3 times daily. She has not taken this medication in greater than 6 months. We will resume treatment with the [place] 7.5/325 1 p.o. 3 times daily. She [...] FOLLOW UP: The patient is currently prescribed [place] 7.5 TID, which provides 100% relief of [...] wi th an antalgic gait, pitched forward Nurse/Train Attendant: Billie Emmanuel (MA-Lex) 08/18/2024 02:10:50 PM EDT >
--- OUTSIDE RECORDS SUMMARY | 2024-11-24 09:45 | XMS_ITS ---
Author Organization [facility] Address [address] [place] [address] Care Team Providers Care Ship/Rec/Doc Control Name Role Phone Kyra Ortiz APRN, Mem Primary Care Provider Unavailable Ned Caceres II Unavailable Bear Mata Unavailable Unavailable Allergies No Known Allergies REASON FOR VISIT low back pain Medications Medication SIG (Take, Route, Frequency, Duration) Notes Start Date End Date Status sotalol 80 mg 1 tab(s) orally 2 [...] FlexPen 100 units/mL ; Duration: 82 Active ASA/Caffeine/Orphenadr ine 385 mg-30 mg-25 mg 1 tab(s) orally 3 times a day; Duration: 30 days Active amLODIPine 10 mg 1 tab(s) orally once a day; Duration: 30 day(s) 11/19/2022 Active metFORMIN 500 mg 1 tab(s) orally 2 times a day; Duration: 30 day(s) 11/19/2022 Active acetaminophen-hydrocod one 325 mg-7.5 mg 1 tab(s) orally 3 times a day; Duration: 30 days MAY 2024 RX, (OK TO FILL EARLY, ONLY IF CLOSED) Active candesartan 8 mg 1 tab(s) orally once a day; Duration: 30 day(s) 11/19/2022 Active alendronate 70 mg ; Duration: 84 Active lovastatin 10 mg 1 tab(s) orally once a day Active clonazePAM 1 mg ; Duration: 30 Active Acetaminophen-Hydrocod one Bitartrate 325 mg-7.5 mg 1 tab(s) orally TID; Duration: 28 days APRIL 2024 RX, DO NOT FILL SOONER THAN 28 DAYS (OK TO FILL EARLY, ONLY IF CLOSED) Active gabapentin 300 mg TAKE ONE CAPSULE BY MOUTH AT BEDTIME; Duration: 30 Active lovastatin 10 mg ; Duration: 90 Active Encounters Encounter Location Date Provider Diagnosis [facility] [address] [place] [address] 11/24/2024 Ned Caceres Other termite treater (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 refill [place] 7.5/325mg TID 2. Continue Norgesic TID 3. [...] that. Medication hamilton she continues with the [place] 7.5/325 1 p.o. 3 times daily. She denies any side effect to the medication. She states the medication is useful to her about 10 hours a day for tolerance of daily activity. Na and UDS were reviewed today. Opioid risk assessment is low 11/24/2024 Spondylosis without myelopathy or radiculopathy, lumbar region (ICD-10 - M47.816) Ms. Deleno returns today for an office visit and [...] that. Medication hamilton she continues with the [place] 7.5/325 1 p.o. 3 times daily. She denies any side effect to the medication. She states the medication is useful to her about 10 hours a day for tolerance of daily activity. Na and UDS were reviewed today. Opioid risk assessment is low 11/24/2024 Spondylosis without myelopathy or radiculopathy, thoracolumbar region [...] that. Medication hamilton she continues with the [place] 7.5/325 1 p.o. 3 times daily. She denies any side effect to the medication. She states the medication is useful to her about 10 hours a day for tolerance of daily activity. Na and UDS were reviewed today. Opioid risk assessment is low Plan Of Treatment Medication Medication Name Sig Start Date Stop Date Notes ASA/Caffeine/Orphenadrin e 385 mg-30 mg-25 mg 1 tab(s) orally 3 times a day; Duration: 30 days acetaminophen-hydrocodon e 325 mg-7.5 mg 1 tab(s) orally 3 times a day; Duration: 30 days MAY 2024 RX, (OK TO FILL EARLY, ONLY IF CLOSED) Acetaminophen-Hydrocodon e Bitartrate 325 mg-7.5 mg 1 tab(s) orally TID; Duration: 28 days APRIL 2024 RX, DO NOT FILL SOONER THAN 28 DAYS (OK TO FILL EARLY, ONLY IF CLOSED) Treatment Notes Assessment Notes Other termite treater (current) drug therapy 08/18/2024 1. refill [place] 7.5/325mg TID 2. Continue Norgesic TID 3. Reviewed Narcotic Agreement policies, specifically stressed a) pain medication from one provider only b) no illegal drug use c) take pain medication as prescribed, follow directions. 4. 2 month follow up Pending Test Test Name Order Date Urine Test ANALYZER 11/24/2024 Next Appt Details Follow Up: 8 Weeks, Reason: Progress Notes * DELEON, IsatuDOB:1945 (79 yo F)Acc No.[id number]:11/24/2024 FollowUP Patient: Isatu GALEANO Provider: Lance Caceres II, M.D. :1945 A ge:79 Y S ex:Female Date:11/24/2024 Address:[facility] [address] [place] [address], [id number] Pcp:Kyra mace Mem Subjective: * Chief Complaints: * 1 . Low back pain. * HPI: T ODAYS PAIN EVALUATION: MEDICATION FOLLOW UP: T he patient is currently prescribed [place] 7.5 TID, which provides 100% relief of [...] was managed by Dr. Scott until his snf about 6 months ago. She was not [...] M edication hamilton she had relied on [place] 10/325 1 p.o. 3 times daily. She has not taken this medication in greater than 6 months. We will resume treatment with the [place] 7.5/325 1 p.o. 3 times daily. She [...] History: A nxiety diagnosed * managed by *, HTN diagnosed* managed by pcp, Hyperlipidemia diagnosed * managed by *, Diabetes diagnosed * managed by *. * Hospitalization/Major Diagno stic Procedure: D enies Past Hospitalization. * Family History: N on-Contributory. denies family hx of substance abuse. * Medications: T aking lovastatin 10 mg tablet , Taking ASA/Caffeine/Orphenadrine 385 mg-30 mg-25 mg tablet 1 tab(s) orally 3 times a day , Taking acetaminophen-hydrocodone 325 mg- 7.5 mg tablet 1 tab(s) orally 3 times [...] * Vitals: * Examination: G eneral Examination: Nurse/Chainstitch Elastic Attacher: Cynthia Madrigal-Kortney Abad 08/18/2024 02:10:50 PM EDT >. General Appearance: w ell-nourished individual in no acute distress. The patient is alert and oriented and cooperative for evaluation. HEENT: unremarkable. Heart: r egular rate via radial pulse. Neurologic Exam: P atient ambulates with an antalgic gait, pitched forward. Skin visible skin is normal, no rash. ? Assessment: * Assessment: 1. O ther termite treater (current) drug therapy - Z79.899 (Primary) 2 [...] that. Medication hamilton she continues with the [place] 7.5/325 1 p.o. 3 times daily. She [...] II, M.D. on 12/13/2024 at 11:09 AM SLURRY MAN Sign off status: Pending * Provider: Lance Caceres II, M.D. Date: Generated for Denzel pelayo/Taylor/Siennaransmitting on: 02/13/2024 11:09 AM SLURRY MAN History and Physical Notes * HPI (History of Present Illness) Category Sub-Category Detail Notes Category Not es PAIN MANAGEMENT TREATMENT HISTORY SUMMARY OF INITIAL EVALUATION: 10/06/2023 [facility] [...] was managed by Dr. Scott until his snf about 6 months ago. She was not [...] apprehensive. Medication hamilton she had relied on [place] 10/325 1 p.o. 3 times daily. She has not taken this medication in greater than 6 months. We will resume treatment with the [place] 7.5/325 1 p.o. 3 times daily. She [...] FOLLOW UP: The patient is currently prescribed [place] 7.5 TID, which provides 100% relief of [...] wi th an antalgic gait, pitched forward Nurse/Chainstitch Elastic Attacher: Billie Emmanuel (MA-Lex) 08/18/2024 02:10:50 PM EDT >
[2024-12-13] VITALS (8 sets, daily range): BP systolic 149–184; BP diastolic 65–109; PULSE 69–89; RESP 16; TEMP 36.7–36.9; O2SAT 96–99; BMI 22.8; BMI 15.7
--- NOTE | 2024-12-13 11:48 | XR_ITS ---
FINAL REPORT CLINICAL HISTORY: short of breath FINDINGS: A portable view of the chest is obtained. There is no prior exam for comparison. Cardiac and mediastinal silhouettes are normal. Emphysema is noted. There is no focal infiltrate. There is no pleural effusion or pneumothorax. IMPRESSION: No acute process on this portable exam. Reviewed, Interpreted and Dictated by Kerri Harper MD Transcribed by Zuleika Garcia Authenticated and [facility]
[2024-12-13] MEDS: 0.9 % SODIUM CHLORIDE 1000ML 1,000 ML 999 ML IV (12:00)
--- NOTE | 2024-12-13 12:05 | PC.NURSE ---
Lunch tray ordered from dietary per patient request.
[2024-12-13 12:08] LABS: Hematocrit 37.8 % (37.0-47.0); Hemoglobin 11.5 g/dL (12.2-16.2); Immature Granulocytes % 0.3 %; Mean Corpuscular HGB Conc 30.4 g/dL (31.8-35.4); Mean Corpuscular Hemoglobin 24.0 pg (27.0-31.2); Mean Corpuscular Volume 78.8 fl (81-99); Nucleated Red Blood Cells % 0 %; Platelet Count 283 K/mm3 (142-424); Red Blood Count 4.80 M/mm3 (4.20-5.40); Red Cell Distribution Width-SD 39.6 fL; White Blood Count 6.4 K/mm3 (4.8-10.8)
--- OUTSIDE RECORDS SUMMARY | 2024-12-13 12:09 | XMS_ITS | Data Portability ---
Author Organization [facility] Address [address] [place] [address] Assessment Encounter Date Assessment Date Assessment LastModified by Organization Details LastModified Time 01/03/2024 01/03/2024 Medicare Preventive Services Check List reviewed and printed for patient. pharm had called and states that when the seal delivery vehicle team technician was dropping out pts meds he witnessed pt trying to give insulin injection with her lancet device. I talked with pt and asked what her lancet device was and asked her to tell me how she uses it and she described i place the needle in the device and poke my finger to get the blood to check my sugar . when I asked how she uses her insulin pen pt states i place the needle pen on the end of the device and dial up the number and give my self insulin. will send to psych for zhao valerio Not available 01/03/2024 15:51:35 Plan of Treatment Reminders Order Date Submit Date Provider Last Modified By Organization Details Last Modified Time Details Appointments None recorded. Lab HbA1c (hemoglobin A1c), blood 2024 025 [facility], [address], Edmundo F, [place], [address], 13:07:46 magnesium, serum or plasma 2024 025 [facility], [address], [address], [place], [address], 5 13:07:47 cobalamin and folate panel, serum 2024 025 [facility], [address], [address]undo F, [place], [address], 13:07:45 vitamin D, 25-hydroxy, total, serum 2024 025 [facility], [address], [place] F, [place], [address], 13:07:47 CMP, serum or plasma 2024 025 [facility], [address], [address] F, [place], [address], 13:07:44 CBC w/ auto diff 2024 025 [facility], [address], [address] F, [place], [address], 13:07:43 iron + total iron-bindin g capacity (TIBC), serum 2024 025 [facility], [address], [place] F, [place], [address], 13:07:45 CK (creatine kinase), total, serum 2024 025 [facility], [address], [place] [address], [place], [address], 13:07:46 culture, urine 2024 025 [facility], [address], [place] F, [place], [address], 22:06:15 urinalysis, dipstick 2024 025 [facility], [address] [place] [address], [address], 17:02:37 amylase + lipase, serum 2024 025 [facility], [address], [place] F, [place], [address], 5 12:12:20 CBC w/ auto diff 2024 025 [facility], [address], [place] [address], [place], [address], 5 12:12:19 CMP, serum or plasma 2024 025 [facility], [address], [place] F, [place], [address], 5 12:12:20 HbA1c (hemoglobin A1c), blood 2024 025 [facility], [address], [place] F, [place], [address], 5 12:12:21 TSH + free T4, serum 2024 025 [facility], [address], [place] F, [place], [address], 5 12:12:19 lipid panel, serum 2024 025 [facility], [address], [place] F, [place], [address], 5 11:07:50 HbA1c (hemoglobin A1c), blood 2024 025 [facility], [address], [place] F, [place], [address], 5 11:07:51 CMP, serum or plasma 2024 025 [facility], [address], [address] F, [place], [address], 5 11:07:50 CBC w/ auto diff 2024 025 [facility], [address], [place] F, [place], [address], 5 11:07:49 microalbumi n/creatinin e, mass ratio, urine 2024 025 [facility], [address], [address] F, [place], [address], 5 11:07:50 Referral community health worker referral - with health department 2024 025 [facility] Not available 17:03:52 psychiatris t referral 2023 024 [facility], [address] [place], [address], 18:25:23 Procedures None recorded. Surgeries None recorded. Imaging None recorded. Medication Orders Salonpas (lidocaine) 4 % topical patch [address], [address], 5 14:56:53 cephalexin 500 mg capsule [address], [address], 5 05:01:47 Pepcid AC 10 mg tablet [address], [address], 5 17:02:38 omeprazole 20 mg capsule,del ayed release [address], [address], 5 14:34:45 lovastatin 10 mg tablet [address], [address], 5 12:09:06 tizanidine 4 mg tablet 2024 025 [facility], [address] [place] [address], [address], 5 12:09:06 ramelteon 8 mg tablet [address], [address], 5 12:09:07 omeprazole 20 mg capsule,del ayed release [address], [address], 5 12:09:08 ramelteon 8 mg tablet 2023 024 [facility], [address] [place] [address], [address], 4 15:45:15 tizanidine 4 mg tablet [address], [address], 4 15:45:15 omeprazole 20 mg capsule,del ayed release [address], [address], 4 15:45:44 Patient TargetsNo targets recorded. Patient Instructions Encounter Date Encounter Id Patient Instructions Last Modified By Organization Details Last Modified Time 01/03/2024 [id number] advance directives: care instructions efryman Not available 01/03/2024 15:45:14 learning about depression efryman Not available 01/03/2024 15:45:14 preventing falls : care instructions efryman Not available 01/03/2024 15:45:14 medicare preventive services guide efryman Not available 01/03/2024 15:45:14 Reason for Referral Psychiatrist Referral for Vi sual hallucinations Referring Physician: Kyra Domínguez [facility], Encounter Date: 01/03/2024 Community Health Worker Refe rral for Memory impairment with health department Referring Physician: Kyra Domínguez [facility], Encounter Date: 04/06/2024 Results Created Date Observation Date Name Description Value Unit Range Abnormal Flag Note LastModifiedBy Organization Detail LastModifiedTime 12/16/1912/17/2023 BASIC METAB OLIC PANEL (8) glucose 180 mg/dL 70-99 above high normal Not Available [facility] ([facility]) [address] [place], [address], 12/17/2023 04:07:24 12/16/19 24 12/17/2023 BASIC METAB OLIC PANEL (8) BUN 20 mg/dL 8-27 normal Not Available [facility] ([facility]) [address] [place], [address], 12/17/2023 04:07:24 12/16/19 24 12/17/2023 BASIC METAB OLIC PANEL (8) creatinine 0.60 mg/dL 0.57-1 .00 normal Not Available [facility] ([facility]) [address] [place], [address], 12/17/2023 04:07:24 12/16/19 24 12/17/2023 BASIC METAB OLIC PANEL (8) eGFR 93 mL/mi n/1.7 3 >59 normal Not Available [facility] ([facility]) [address] [place], [address], 12/17/2023 04:07:24 12/16/19 24 12/17/2023 BASIC METAB OLIC PANEL (8) BUN/creatini ne ratio 33 12-28 above high normal Not Available [facility] ([facility]) [address] [place], [address], 12/17/2023 04:07:24 12/16/19 24 12/17/2023 BASIC METAB OLIC PANEL (8) sodium 139 mmol/ L 134-14 4 normal Not Available [facility] ([facility]) [address] [place], [address], 12/17/2023 04:07:24 12/16/19 24 12/17/2023 BASIC METAB OLIC PANEL (8) potassium 4.7 mmol/ L 3.5-5. 2 normal Not Available [facility] ([facility]) [address] [facility] [place], [address], 12/17/2023 04:07:24 12/16/19 24 12/17/2023 BASIC METAB OLIC PANEL (8) chloride 100 mmol/ L 96-106 normal Not Available [facility] ([facility]) [address] [facility] [place], [address], 12/17/2023 04:07:24 12/16/19 24 12/17/2023 BASIC METAB OLIC PANEL (8) carbon dioxide, total 26 mmol/ L 20-29 normal Not Available [facility] ([facility]) [address] [facility] [place], [address], 12/17/2023 04:07:24 12/16/1912/17/2023 BASIC METAB OLIC PANEL (8) calcium 9.7 mg/dL 8.7-10 .3 normal Not Available [facility] ([facility]) [address] [facility] [place], [address], 12/17/2023 04:07:24 12/16/19 24 12/17/2023 CARMEN IA, PLASM A ammonia, plasma 29 ug/dL 31-169 below low normal Not Available [facility] ([facility]) [address] [facility] [place], [address], 12/17/2023 12:35:37 12/16/19 24 12/17/2023 EMILY Weaver NOTE please note Commen t The date and/o r time of colle ction was not indic ated on the requi sitio n as requi red by state and connor al law. The date of recei pt of the speci men was used as the colle ction date if not suppl ied. Not Available [facility] ([facility]) [address] [facility] [place], [address], 12/17/2023 12:35:38 04/06/19 25 04/07/2024 CBC WITH DIFFE RENTI AL/PL ATELE T WBC 10.3 x10e3 /uL 3.4-10 .8 normal Not Available [facility] ([facility]) [address] [place], [address], 04/07/2024 11:07:49 04/06/19 25 04/07/2024 CBC WITH DIFFE RENTI AL/PL ATELE T RBC 4.67 x10e6 /uL 3.77-5 .28 normal Not Available [facility] ([facility]) [address] [place], [address], 04/07/2024 11:07:49 04/06/19 25 04/07/2024 CBC WITH DIFFE RENTI AL/PL ATELE T hemoglobin 11.2 g/dL 11.1-1 5.9 normal Not Available [facility] ([facility]) [address] [place], [address], 04/07/2024 11:07:49 04/06/19 25 04/07/2024 CBC WITH DIFFE RENTI AL/PL ATELE T hematocrit 36.1 % 34.0-4 6.6 normal Not Available [facility] ([facility]) [address] [place], [address], 04/07/2024 11:07:49 04/06/19 25 04/07/2024 CBC WITH DIFFE RENTI AL/PL ATELE T MCV 77 fL 79-97 below low normal Not Available [facility] ([facility]) [address] [place], [address], 04/07/2024 11:07:49 04/06/19 25 04/07/2024 CBC WITH DIFFE RENTI AL/PL ATELE T MCH 24.0 pg 26.6-3 3.0 below low normal Not Available [facility] ([facility]) [address] [place], [address], 04/07/2024 11:07:49 04/06/19 25 04/07/2024 CBC WITH DIFFE RENTI AL/PL ATELE T MCHC 31.0 g/dL 31.5-3 5.7 below low normal Not Available [facility] ([facility]) [address] [place], [address], 04/07/2024 11:07:49 04/06/19 25 04/07/2024 CBC WITH DIFFE RENTI AL/PL ATELE T RDW 15.2 % 11.7-1 5.4 Not Available [facility] ([facility]) [address] [place], [address], 04/07/2024 11:07:49 04/06/19 25 04/07/2024 CBC WITH DIFFE RENTI AL/PL ATELE T platelets 353 x10e3 /uL 150-45 0 normal Not Available [facility] ([facility]) [address] [place], [address], 04/07/2024 11:07:49 04/06/19 25 04/07/2024 CBC WITH DIFFE RENTI AL/PL ATELE T neutrophils 77 % not estab. normal Not Available [facility] ([facility]) [address] [place], [address], 04/07/2024 11:07:49 04/06/19 25 04/07/2024 CBC WITH DIFFE RENTI AL/PL ATELE T lymphs 13 % not estab. normal Not Available [facility] ([facility]) [address] [place], [address], 04/07/2024 11:07:49 04/06/19 25 04/07/2024 CBC WITH DIFFE RENTI AL/PL ATELE T monocytes 7 % not estab. normal Not Available [facility] ([facility]) [address] [place], [address], 04/07/2024 11:07:49 04/06/19 25 04/07/2024 CBC WITH DIFFE RENTI AL/PL ATELE T eos 2 % not estab. normal Not Available [facility] ([facility]) [address] [facility], [place], [address], 04/07/2024 11:07:49 04/06/19 25 04/07/2024 CBC WITH DIFFE RENTI AL/PL ATELE T basos 0 % not estab. normal Not Available [facility] ([facility]) [address] [place], [address], 04/07/2024 11:07:49 04/06/19 25 04/07/2024 CBC WITH DIFFE RENTI AL/PL ATELE T immature cells PRESS SECRETARY Not Available [facility] ([facility]) [address] [place], [address], 04/07/2024 11:07:49 04/06/19 25 04/07/2024 CBC WITH DIFFE RENTI AL/PL ATELE T neutrophils (absolute) 7.9 x10e3 /uL 1.4-7. 0 above high normal Not Available [facility] ([facility]) [address] [place], [address], 04/07/2024 11:07:49 04/06/19 25 04/07/2024 CBC WITH DIFFE RENTI AL/PL ATELE T lymphs (absolute) 1.4 x10e3 /uL 0.7-3. 1 normal Not Available [facility] ([facility]) [address] [facility], [place], [address], 04/07/2024 11:07:49 04/06/19 25 04/07/2024 CBC WITH DIFFE RENTI AL/PL ATELE T monocytes(ab solute) 0.7 x10e3 /uL 0.1-0. 9 normal Not Available [facility] ([facility]) [address] [facility], [place], [address], 04/07/2024 11:07:49 04/06/19 25 04/07/2024 CBC WITH DIFFE RENTI AL/PL ATELE T eos (absolute) 0.2 x10e3 /uL 0.0-0. 4 normal Not Available [facility] ([facility]) [address] [facility], [place], [address], 04/07/2024 11:07:49 04/06/19 25 04/07/2024 CBC WITH DIFFE RENTI AL/PL ATELE T baso (absolute) 0.0 x10e3 /uL 0.0-0. 2 normal Not Available [facility] ([facility]) [address] [facility], [place], [address], 04/07/2024 11:07:49 04/06/19 25 04/07/2024 CBC WITH DIFFE RENTI AL/PL ATELE T immature granulocytes 1 % not estab. Not Available [facility] ([facility]) [address] [place], [address], 04/07/2024 11:07:49 04/06/19 25 04/07/2024 CBC WITH DIFFE RENTI AL/PL ATELE T immature grans (abs) 0.1 x10e3 /uL 0.0-0. 1 Not Available [facility] ([facility]) [address] [facility], [place], [address], 04/07/2024 11:07:49 04/06/19 25 04/07/2024 CBC WITH DIFFE RENTI AL/PL ATELE T NRBC PRESS SECRETARY Not Available [facility] ([facility]) [address] [facility] [place], [address], 04/07/2024 11:07:49 04/06/19 25 04/07/2024 CBC WITH DIFFE RENTI AL/PL ATELE T hematology comments: PRESS SECRETARY Not Available [facility] ([facility]) [address] [facility] [place], [address], 04/07/2024 11:07:49 04/06/19 25 04/07/2024 COMP. METAB OLIC PANEL (14) glucose 146 mg/dL 70-99 above high normal Not Available [facility] ([facility]) [address] [facility] [place], [address], 04/07/2024 11:07:50 04/06/19 25 04/07/2024 COMP. METAB OLIC PANEL (14) BUN 22 mg/dL 8-27 normal Not Available [facility] ([facility]) [address] [facility] [place], [address], 04/07/2024 11:07:50 04/06/19 25 04/07/2024 COMP. METAB OLIC PANEL (14) creatinine 0.61 mg/dL 0.57-1 .00 normal Not Available [facility] ([facility]) [address] [facility] [place], [address], 04/07/2024 11:07:50 04/06/19 25 04/07/2024 COMP. METAB OLIC PANEL (14) eGFR 93 mL/mi n/1.7 3 >59 normal Not Available [facility] ([facility]) [address] [facility] [place], [address], 04/07/2024 11:07:50 04/06/19 25 04/07/2024 COMP. METAB OLIC PANEL (14) BUN/creatini ne ratio 36 12-28 above high normal Not Available [facility] ([facility]) [address] [facility] [place], [address], 04/07/2024 11:07:50 04/06/19 25 04/07/2024 COMP. METAB OLIC PANEL (14) sodium 144 mmol/ L 134-14 4 normal Not Available [facility] ([facility]) [address] [place], [address], 04/07/2024 11:07:50 04/06/19 25 04/07/2024 COMP. METAB OLIC PANEL (14) potassium 5.9 mmol/ L 3.5-5. 2 above high normal Not Available [facility] ([facility]) [address] [place], [address], 04/07/2024 11:07:50 04/06/19 25 04/07/2024 COMP. METAB OLIC PANEL (14) chloride 105 mmol/ L 96-106 normal Not Available [facility] ([facility]) [address] [place], [address], 04/07/2024 11:07:50 04/06/19 25 04/07/2024 COMP. METAB OLIC PANEL (14) carbon dioxide, total 25 mmol/ L 20-29 normal Not Available [facility] ([facility]) [address] [facility] [place], [address], 04/07/2024 11:07:50 04/06/19 25 04/07/2024 COMP. METAB OLIC PANEL (14) calcium 10.0 mg/dL 8.7-10 .3 normal Not Available [facility] ([facility]) [address] [facility] [place], [address], 04/07/2024 11:07:50 04/06/19 25 04/07/2024 COMP. METAB OLIC PANEL (14) protein, total 7.2 g/dL 6.0-8. 5 normal Not Available [facility] ([facility]) [address] [facility] [place], [address], 04/07/2024 11:07:50 04/06/19 25 04/07/2024 COMP. METAB OLIC PANEL (14) albumin 3.8 g/dL 3.8-4. 8 normal Not Available [facility] ([facility]) [address] [facility] [place], [address], 04/07/2024 11:07:50 04/06/19 25 04/07/2024 COMP. METAB OLIC PANEL (14) globulin, total 3.4 g/dL 1.5-4. 5 Not Available [facility] ([facility]) [address] [facility] [place], [address], 04/07/2024 11:07:50 04/06/19 25 04/07/2024 COMP. METAB OLIC PANEL (14) bilirubin, total 0.3 mg/dL 0.0-1. 2 normal Not Available [facility] ([facility]) [address] [facility] [place], [address], 04/07/2024 11:07:50 04/06/19 25 04/07/2024 COMP. METAB OLIC PANEL (14) alkaline phosphatase 135 IU/L 44-121 above high normal Not Available [facility] ([facility]) [address] [facility] [place], [address], 04/07/2024 11:07:50 04/06/19 25 04/07/2024 COMP. METAB OLIC PANEL (14) AST (SGOT) 18 IU/L 0-40 normal Not Available [facility] ([facility]) [address] [facility] [place], [address], 04/07/2024 11:07:50 04/06/19 25 04/07/2024 COMP. METAB OLIC PANEL (14) ALT (SGPT) 10 IU/L 0-32 normal Not Available [facility] ([facility]) [address] [facility] [place], [address], 04/07/2024 11:07:50 04/06/19 25 04/07/2024 LIPID PANEL cholesterol, total 141 mg/dL 100-19 9 normal Not Available [facility] ([facility]) [address] [facility] [place], [address], 04/07/2024 11:07:50 04/06/19 25 04/07/2024 LIPID PANEL triglyceride s 139 mg/dL 0-149 normal Not Available [facility] ([facility]) [address] [facility] [place], [address], 04/07/2024 11:07:50 04/06/19 25 04/07/2024 LIPID PANEL HDL cholesterol 53 mg/dL >39 normal Not Available [facility] ([facility]) [address] [facility] [place], [address], 04/07/2024 11:07:50 04/06/19 25 04/07/2024 LIPID PANEL VLDL cholesterol harsh 24 mg/dL 5-40 Not Available [facility] ([facility]) [address] [facility] [place], [address], 04/07/2024 11:07:50 04/06/19 25 04/07/2024 LIPID PANEL LDL chol calc ([facility]) 64 mg/dL 0-99 Not Available [facility] ([facility]) [address] [facility] [place], [address], 04/07/2024 11:07:50 04/06/19 25 04/07/2024 LIPID PANEL LDL calc comment: PRESS SECRETARY Not Available [facility] ([facility]) [address] [facility], [place], [address], 04/07/2024 11:07:50 04/06/19 25 04/07/2024 ALBUM IN/CR EAT RATIO , RANDO M UR creatinine, urine 119.0 mg/dL not estab. normal Not Available [facility] ([facility]) [address] [place], [address], 04/07/2024 11:07:50 04/06/19 25 04/07/2024 ALBUM IN/CR EAT RATIO , MILTON Patterson UR albumin, urine 22.5 ug/mL not estab. Not Available [facility] ([facility]) [address] [place], [address], 04/07/2024 11:07:50 04/06/19 25 04/07/2024 ALBUM IN/CR EAT RATIO , RANDO M UR alb/creat ratio 19 mg/g_ creat 0-29 Veronica l: 0 - 29 Moder ately incre ased: 30 - 300 Sever reymundo incre ased: >300 Not Available [facility] ([facility]) [address] [facility], [place], [address], 04/07/2024 11:07:50 04/06/19 25 04/07/2024 HEMOG LOBIN A1C hemoglobin A1C 8.8 % 4.8-5. 6 above high normal Predi abete s: 5.7 - 6.4 Diabe mariam: >6.4 Glyce rene contr ol for adult s with diabe mariam: <7.0 Not Available [facility] ([facility]) [address] [place], [address], 04/07/2024 11:07:51 05/23/19 25 05/23/2024 TSH+F REE T4 TSH 1.700 uIU/m L 0.450- 4.500 normal Not Available [facility] ([facility]) [address] [place], [address], 05/23/2024 12:12:19 05/23/19 25 05/23/2024 TSH+F REE T4 T4,free(dire ct) 1.03 NG/dL 0.82-1 .77 normal Not Available [facility] ([facility]) [address] [place], [address], 05/23/2024 12:12:19 05/23/19 25 05/23/2024 CBC WITH DIFFE RENTI AL/PL ATELE T WBC 11.6 x10e3 /uL 3.4-10 .8 above high normal Not Available [facility] ([facility]) [address] [place], [address], 05/23/2024 12:12:19 05/23/1905/23/2024 CBC WITH DIFFE RENTI AL/PL ATELE T RBC 4.14 x10e6 /uL 3.77-5 .28 normal Not Available [facility] ([facility]) [address] [place], [address], 05/23/2024 12:12:19 05/23/1905/23/2024 CBC WITH DIFFE RENTI AL/PL ATELE T hemoglobin 9.9 g/dL 11.1-1 5.9 below low normal Not Available [facility] ([facility]) [address] [place], [address], 05/23/2024 12:12:19 05/23/1905/23/2024 CBC WITH DIFFE RENTI AL/PL ATELE T hematocrit 32.3 % 34.0-4 6.6 below low normal Not Available [facility] ([facility]) [address] [place], [address], 05/23/2024 12:12:19 05/23/1905/23/2024 CBC WITH DIFFE RENTI AL/PL ATELE T MCV 78 fL 79-97 below low normal Not Available [facility] ([facility]) [address] [place], [address], 05/23/2024 12:12:19 05/23/1905/23/2024 CBC WITH DIFFE RENTI AL/PL ATELE T MCH 23.9 pg 26.6-3 3.0 below low normal Not Available [facility] ([facility]) [address] [place], [address], 05/23/2024 12:12:19 05/23/1905/23/2024 CBC WITH DIFFE RENTI AL/PL ATELE T MCHC 30.7 g/dL 31.5-3 5.7 below low normal Not Available [facility] ([facility]) [address] [facility] [place], [address], 05/23/2024 12:12:19 05/23/19 25 05/23/2024 CBC WITH DIFFE RENTI AL/PL ATELE T RDW 15.4 % 11.7-1 5.4 Not Available [facility] ([facility]) [address] [facility] [place], [address], 05/23/2024 12:12:19 05/23/1905/23/2024 CBC WITH DIFFE RENTI AL/PL ATELE T platelets 354 x10e3 /uL 150-45 0 normal Not Available [facility] ([facility]) [address] [facility] [place], [address], 05/23/2024 12:12:19 05/23/1905/23/2024 CBC WITH DIFFE RENTI AL/PL ATELE T neutrophils 80 % not estab. normal Not Available [facility] ([facility]) [address] [facility] [place], [address], 05/23/2024 12:12:19 05/23/1905/23/2024 CBC WITH DIFFE RENTI AL/PL ATELE T lymphs 11 % not estab. normal Not Available [facility] ([facility]) [address] [facility], [place], [address], 05/23/2024 12:12:19 05/23/1905/23/2024 CBC WITH DIFFE RENTI AL/PL ATELE T monocytes 6 % not estab. normal Not Available [facility] ([facility]) [address] [facility] [place], [address], 05/23/2024 12:12:19 05/23/19 25 05/23/2024 CBC WITH DIFFE RENTI AL/PL ATELE T eos 2 % not estab. normal Not Available [facility] ([facility]) [address] [facility] [place], [address], 05/23/2024 12:12:19 05/23/1905/23/2024 CBC WITH DIFFE RENTI AL/PL ATELE T basos 0 % not estab. normal Not Available [facility] ([facility]) [address] [facility] [place], [address], 05/23/2024 12:12:19 05/23/1905/23/2024 CBC WITH DIFFE RENTI AL/PL ATELE T immature cells PRESS SECRETARY Not Available [facility] ([facility]) [address] [facility] [place], [address], 05/23/2024 12:12:19 05/23/1905/23/2024 CBC WITH DIFFE RENTI AL/PL ATELE T neutrophils (absolute) 9.2 x10e3 /uL 1.4-7. 0 above high normal Not Available [facility] ([facility]) [address] [place], [address], 05/23/2024 12:12:19 05/23/19 25 05/23/2024 CBC WITH DIFFE RENTI AL/PL ATELE T lymphs (absolute) 1.3 x10e3 /uL 0.7-3. 1 normal Not Available [facility] ([facility]) [address] [place], [address], 05/23/2024 12:12:19 05/23/1905/23/2024 CBC WITH DIFFE RENTI AL/PL ATELE T monocytes(ab solute) 0.7 x10e3 /uL 0.1-0. 9 normal Not Available [facility] ([facility]) [address] [place], [address], 05/23/2024 12:12:19 05/23/19 25 05/23/2024 CBC WITH DIFFE RENTI AL/PL ATELE T eos (absolute) 0.3 x10e3 /uL 0.0-0. 4 normal Not Available [facility] ([facility]) [address] [place], [address], 05/23/2024 12:12:19 05/23/19 25 05/23/2024 CBC WITH DIFFE RENTI AL/PL ATELE T baso (absolute) 0.0 x10e3 /uL 0.0-0. 2 normal Not Available [facility] ([facility]) [address] [facility], [place], [address], 05/23/2024 12:12:19 05/23/1905/23/2024 CBC WITH DIFFE RENTI AL/PL ATELE T immature granulocytes 1 % not estab. Not Available [facility] ([facility]) [address] [place], [address], 05/23/2024 12:12:19 05/23/19 25 05/23/2024 CBC WITH DIFFE RENTI AL/PL ATELE T immature grans (abs) 0.1 x10e3 /uL 0.0-0. 1 Not Available [facility] ([facility]) [address] [place], [address], 05/23/2024 12:12:19 05/23/19 25 05/23/2024 CBC WITH DIFFE RENTI AL/PL ATELE T NRBC PRESS SECRETARY Not Available [facility] ([facility]) [address] [place], [address], 05/23/2024 12:12:19 05/23/19 25 05/23/2024 CBC WITH DIFFE RENTI AL/PL ATELE T hematology comments: PRESS SECRETARY Not Available [facility] ([facility]) [address] [place], [address], 05/23/2024 12:12:19 05/23/19 25 05/23/2024 COMP. METAB OLIC PANEL (14) glucose 227 mg/dL 70-99 above high normal Not Available [facility] ([facility]) [address] [place], [address], 05/23/2024 12:12:20 05/23/19 25 05/23/2024 COMP. METAB OLIC PANEL (14) BUN 16 mg/dL 8-27 normal Not Available [facility] ([facility]) [address] [place], [address], 05/23/2024 12:12:20 05/23/19 25 05/23/2024 COMP. METAB OLIC PANEL (14) creatinine 0.50 mg/dL 0.57-1 .00 below low normal Not Available [facility] ([facility]) [address] [facility] [place], [address], 05/23/2024 12:12:20 05/23/19 25 05/23/2024 COMP. METAB OLIC PANEL (14) eGFR 97 mL/mi n/1.7 3 >59 normal Not Available [facility] ([facility]) [address] [place], [address], 05/23/2024 12:12:20 05/23/19 25 05/23/2024 COMP. METAB OLIC PANEL (14) BUN/creatini ne ratio 32 12-28 above high normal Not Available [facility] ([facility]) [address] [place], [address], 05/23/2024 12:12:20 05/23/19 25 05/23/2024 COMP. METAB OLIC PANEL (14) sodium 139 mmol/ L 134-14 4 normal Not Available [facility] ([facility]) [address] [place], [address], 05/23/2024 12:12:20 05/23/19 25 05/23/2024 COMP. METAB OLIC PANEL (14) potassium 4.9 mmol/ L 3.5-5. 2 normal Not Available [facility] ([facility]) [address] [place], [address], 05/23/2024 12:12:20 05/23/19 25 05/23/2024 COMP. METAB OLIC PANEL (14) chloride 102 mmol/ L 96-106 normal Not Available [facility] ([facility]) [address] [place], [address], 05/23/2024 12:12:20 05/23/19 25 05/23/2024 COMP. METAB OLIC PANEL (14) carbon dioxide, total 23 mmol/ L 20-29 normal Not Available [facility] ([facility]) [address] [facility] [place], [address], 05/23/2024 12:12:20 05/23/19 25 05/23/2024 COMP. METAB OLIC PANEL (14) calcium 9.3 mg/dL 8.7-10 .3 normal Not Available [facility] ([facility]) [address] [facility] [place], [address], 05/23/2024 12:12:20 05/23/19 25 05/23/2024 COMP. METAB OLIC PANEL (14) protein, total 7.0 g/dL 6.0-8. 5 normal Not Available [facility] ([facility]) [address] [facility] [place], [address], 05/23/2024 12:12:20 05/23/19 25 05/23/2024 COMP. METAB OLIC PANEL (14) albumin 3.7 g/dL 3.8-4. 8 below low normal Not Available [facility] ([facility]) [address] [facility] [place], [address], 05/23/2024 12:12:20 05/23/19 25 05/23/2024 COMP. METAB OLIC PANEL (14) globulin, total 3.3 g/dL 1.5-4. 5 Not Available [facility] ([facility]) [address] [facility] [place], [address], 05/23/2024 12:12:20 05/23/19 25 05/23/2024 COMP. METAB OLIC PANEL (14) bilirubin, total <0.2 mg/dL 0.0-1. 2 Not Available [facility] ([facility]) [address] [facility] [place], [address], 05/23/2024 12:12:20 05/23/19 25 05/23/2024 COMP. METAB OLIC PANEL (14) alkaline phosphatase 159 IU/L 44-121 above high normal Not Available [facility] ([facility]) [address] [facility] [place], [address], 05/23/2024 12:12:20 05/23/19 25 05/23/2024 COMP. METAB OLIC PANEL (14) AST (SGOT) 13 IU/L 0-40 normal Not Available [facility] ([facility]) [address] [place], [address], 05/23/2024 12:12:20 05/23/19 25 05/23/2024 COMP. METAB OLIC PANEL (14) ALT (SGPT) 9 IU/L 0-32 normal Not Available [facility] ([facility]) [address] [place], [address], 05/23/2024 12:12:20 05/23/19 25 05/23/2024 RAY+L IPASE amylase 48 U/L 31-110 normal Not Available [facility] ([facility]) [address] [place], [address], 05/23/2024 12:12:20 05/23/19 25 05/23/2024 RAY+L IPASE lipase 52 U/L 14-85 normal Not Available [facility] ([facility]) [address] [place], [address], 05/23/2024 12:12:20 04/05/23/2024 HEMOG LOBIN A1C hemoglobin A1C 8.6 % 4.8-5. 6 above high normal Predi abete s: 5.7 - 6.4 Diabe mariam: >6.4 Glyce rene contr ol for adult s with diabe mariam: <7.0 Not Available [facility] ([facility]) [address] [place], [address], 05/23/2024 12:12:21 08/09/19 25 08/10/2024 URINE CULTU RE, ROUTI NE urine culture, routine Final report abnormal Not Available [facility] ([facility]) [address] [facility], [place], [address], 08/10/2024 22:06:15 08/09/19 25 08/10/2024 URINE CULTU RE, ROUTI NE result 1 Klebsi isacc pneumo niae abnormal Cefaz marjorie with an RENE <=16 predi cts susce ptibi lity to the oral agent s cefac john, cefdi maría, cefpo doxim e, cefpr ozil, cefur oxime , cepha lexin , and lorac arbef when used for thera py of uncom plica benja urina ry tract infec tions due to E. coli, Klebs iella pneum oniae , and Prote us mirab ilis. Great er than 100,0 00 colon y formi ng units per mL Not Available [facility] ([facility]) [address] [facility], [place], [address], 08/10/2024 22:06:15 08/09/1908/10/2024 URINE CULTU RE, ROUTI NE antimicrobia l susceptibili ty Commen t S = Susce ptibl e; I = Inter media te; R = Resis tant P = Posit edgard; N = Negat edgard MICS are expre ssed in micro grams per mL Antib iotic RSLT# 1 RSLT# 2 RSLT# 3 RSLT# 4 Amoxi cilli n/Cla vulan ic Acid S Ampic illin R Cefaz marjorie S Cefep bharathi S Cefox itin S Cefpo doxim e S Ceftr iaxon e S Cipro floxa braden S Ertap enem S Genta micin S Levof loxac in S Merop enem S Nitro furan toin I Piper acill in/Ta zobac shah S Tetra cycli ne S Tobra mycin S Trime thopr im/Crawford lfa S Not Available [facility] ([facility]) [address] [facility], [place], [address], 08/10/2024 22:06:15 08/09/19 25 08/08/2024 urina lysis , dipst ick Leukocytes Modera te Not Available [address], [address], 08/08/2024 16:37:50 08/09/19 25 08/08/2024 urina lysis , dipst ick Nitrite positi ve Not Available [address], [address], 08/08/2024 16:37:50 08/09/19 25 08/08/2024 urina lysis , dipst ick Urobilinogen .2 Not Available Chris [address], [address], 08/08/2024 16:37:50 08/09/19 25 08/08/2024 urina lysis , dipst ick Protein Trace Not Available [address], [address], 08/08/2024 16:37:50 08/09/19 25 08/08/2024 urina lysis , dipst ick pH 5.5 Not Available [address], [address], 08/08/2024 16:37:50 08/09/19 25 08/08/2024 urina lysis , dipst ick Blood Non-He molyze d: Trace Not Available [address], [address], 08/08/2024 16:37:50 08/09/19 25 08/08/2024 urina lysis , dipst ick Specific [place] 1.015 Not Available [address], [address], 08/08/2024 16:37:50 08/09/19 25 08/08/2024 urina lysis , dipst ick Ketone Negati ve Not Available [address], [address], 08/08/2024 16:37:50 08/09/19 25 08/08/2024 urina lysis , dipst ick Bilirubin Negati ve Not Available [address], [address], 08/08/2024 16:37:50 08/09/19 25 08/08/2024 urina lysis , dipst ick Glucose Negati ve Not Available [address], [address], 08/08/2024 16:37:50 08/09/19 25 08/08/2024 urina lysis , dipst ick Appearance Cloudy Not Available [address], [address], 08/08/2024 16:37:50 08/09/19 25 08/08/2024 urina lysis , dipst ick Color [place] Not Available [address], [address], 08/08/2024 16:37:50 09/13/19 25 09/13/2024 CBC WITH DIFFE RENTI AL/PL ATELE T WBC 8.8 x10e3 /uL 3.4-10 .8 normal Not Available [facility] ([facility]) [address] [place], [address], 09/13/2024 13:07:43 09/13/19 25 09/13/2024 CBC WITH DIFFE RENTI AL/PL ATELE T RBC 4.39 x10e6 /uL 3.77-5 .28 normal Not Available [facility] ([facility]) [address] [place], [address], 09/13/2024 13:07:43 09/13/19 25 09/13/2024 CBC WITH DIFFE RENTI AL/PL ATELE T hemoglobin 10.6 g/dL 11.1-1 5.9 below low normal Not Available [facility] ([facility]) [address] [place], [address], 09/13/2024 13:07:43 09/13/19 25 09/13/2024 CBC WITH DIFFE RENTI AL/PL ATELE T hematocrit 34.7 % 34.0-4 6.6 normal Not Available [facility] ([facility]) [address] [place], [address], 09/13/2024 13:07:43 09/13/19 25 09/13/2024 CBC WITH DIFFE RENTI AL/PL ATELE T MCV 79 fL 79-97 normal Not Available [facility] ([facility]) [address] [place], [address], 09/13/2024 13:07:43 09/13/19 25 09/13/2024 CBC WITH DIFFE RENTI AL/PL ATELE T MCH 24.1 pg 26.6-3 3.0 below low normal Not Available [facility] ([facility]) [address] [place], [address], 09/13/2024 13:07:43 09/13/19 25 09/13/2024 CBC WITH DIFFE RENTI AL/PL ATELE T MCHC 30.5 g/dL 31.5-3 5.7 below low normal Not Available [facility] ([facility]) [address] [facility], [place], [address], 09/13/2024 13:07:43 09/13/19 25 09/13/2024 CBC WITH DIFFE RENTI AL/PL ATELE T RDW 15.2 % 11.7-1 5.4 Not Available [facility] ([facility]) [address] [facility], [place], [address], 09/13/2024 13:07:43 09/13/19 25 09/13/2024 CBC WITH DIFFE RENTI AL/PL ATELE T platelets 274 x10e3 /uL 150-45 0 normal Not Available [facility] ([facility]) [address] [facility], [place], [address], 09/13/2024 13:07:43 09/13/19 25 09/13/2024 CBC WITH DIFFE RENTI AL/PL ATELE T neutrophils 68 % not estab. normal Not Available [facility] ([facility]) [address] [facility], [place], [address], 09/13/2024 13:07:43 09/13/19 25 09/13/2024 CBC WITH DIFFE RENTI AL/PL ATELE T lymphs 23 % not estab. normal Not Available [facility] ([facility]) [address] [facility], [place], [address], 09/13/2024 13:07:43 09/13/19 25 09/13/2024 CBC WITH DIFFE RENTI AL/PL ATELE T monocytes 7 % not estab. normal Not Available [facility] ([facility]) [address] [facility], [place], [address], 09/13/2024 13:07:43 09/13/19 25 09/13/2024 CBC WITH DIFFE RENTI AL/PL ATELE T eos 2 % not estab. normal Not Available [facility] ([facility]) [address] [facility], [place], [address], 09/13/2024 13:07:43 09/13/19 25 09/13/2024 CBC WITH DIFFE RENTI AL/PL ATELE T basos 0 % not estab. normal Not Available [facility] ([facility]) [address] [facility], [place], [address], 09/13/2024 13:07:43 09/13/19 25 09/13/2024 CBC WITH DIFFE RENTI AL/PL ATELE T immature cells PRESS SECRETARY Not Available [facility] ([facility]) [address] [facility], [place], [address], 09/13/2024 13:07:43 09/13/19 25 09/13/2024 CBC WITH DIFFE RENTI AL/PL ATELE T neutrophils (absolute) 5.9 x10e3 /uL 1.4-7. 0 normal Not Available [facility] ([facility]) [address] [place], [address], 09/13/2024 13:07:43 09/13/19 25 09/13/2024 CBC WITH DIFFE RENTI AL/PL ATELE T lymphs (absolute) 2.0 x10e3 /uL 0.7-3. 1 normal Not Available [facility] ([facility]) [address] [place], [address], 09/13/2024 13:07:43 09/13/19 25 09/13/2024 CBC WITH DIFFE RENTI AL/PL ATELE T monocytes(ab solute) 0.6 x10e3 /uL 0.1-0. 9 normal Not Available [facility] ([facility]) [address] [place], [address], 09/13/2024 13:07:43 09/13/19 25 09/13/2024 CBC WITH DIFFE RENTI AL/PL ATELE T eos (absolute) 0.2 x10e3 /uL 0.0-0. 4 normal Not Available [facility] ([facility]) [address] [facility], [place], [address], 09/13/2024 13:07:43 09/13/19 25 09/13/2024 CBC WITH DIFFE RENTI AL/PL ATELE T baso (absolute) 0.0 x10e3 /uL 0.0-0. 2 normal Not Available [facility] ([facility]) [address] [facility], [place], [address], 09/13/2024 13:07:43 09/13/19 25 09/13/2024 CBC WITH DIFFE RENTI AL/PL ATELE T immature granulocytes 0 % not estab. Not Available [facility] ([facility]) [address] [place], [address], 09/13/2024 13:07:43 09/13/19 25 09/13/2024 CBC WITH DIFFE RENTI AL/PL ATELE T immature grans (abs) 0.0 x10e3 /uL 0.0-0. 1 Not Available [facility] ([facility]) [address] [place], [address], 09/13/2024 13:07:43 09/13/19 25 09/13/2024 CBC WITH DIFFE RENTI AL/PL ATELE T NRBC PRESS SECRETARY Not Available [facility] ([facility]) [address] [place], [address], 09/13/2024 13:07:43 09/13/19 25 09/13/2024 CBC WITH DIFFE RENTI AL/PL ATELE T hematology comments: PRESS SECRETARY Not Available [facility] ([facility]) [address] [place], [address], 09/13/2024 13:07:43 09/13/19 25 09/13/2024 COMP. METAB OLIC PANEL (14) glucose 127 mg/dL 70-99 above high normal Not Available [facility] ([facility]) [address] [place], [address], 09/13/2024 13:07:44 09/13/19 25 09/13/2024 COMP. METAB OLIC PANEL (14) BUN 19 mg/dL 8-27 normal Not Available [facility] ([facility]) [address] [place], [address], 09/13/2024 13:07:44 09/13/19 25 09/13/2024 COMP. METAB OLIC PANEL (14) creatinine 0.52 mg/dL 0.57-1 .00 below low normal Not Available [facility] ([facility]) [address] [facility], [place], [address], 09/13/2024 13:07:44 09/13/19 25 09/13/2024 COMP. METAB OLIC PANEL (14) eGFR 96 mL/mi n/1.7 3 >59 normal Not Available [facility] ([facility]) [address] [place], [address], 09/13/2024 13:07:44 09/13/19 25 09/13/2024 COMP. METAB OLIC PANEL (14) BUN/creatini ne ratio 37 12-28 above high normal Not Available [facility] ([facility]) [address] [place], [address], 09/13/2024 13:07:44 09/13/19 25 09/13/2024 COMP. METAB OLIC PANEL (14) sodium 142 mmol/ L 134-14 4 normal Not Available [facility] ([facility]) [address] [place], [address], 09/13/2024 13:07:44 09/13/19 25 09/13/2024 COMP. METAB OLIC PANEL (14) potassium 4.4 mmol/ L 3.5-5. 2 normal Not Available [facility] ([facility]) [address] [facility], [place], [address], 09/13/2024 13:07:44 09/13/19 25 09/13/2024 COMP. METAB OLIC PANEL (14) chloride 104 mmol/ L 96-106 normal Not Available [facility] ([facility]) [address] [place], [address], 09/13/2024 13:07:44 09/13/19 25 09/13/2024 COMP. METAB OLIC PANEL (14) carbon dioxide, total 21 mmol/ L 20-29 normal Not Available [facility] ([facility]) [address] [place], [address], 09/13/2024 13:07:44 09/13/19 25 09/13/2024 COMP. METAB OLIC PANEL (14) calcium 9.5 mg/dL 8.7-10 .3 normal Not Available [facility] ([facility]) [address] [place], [address], 09/13/2024 13:07:44 09/13/19 25 09/13/2024 COMP. METAB OLIC PANEL (14) protein, total 7.4 g/dL 6.0-8. 5 normal Not Available [facility] ([facility]) [address] [place], [address], 09/13/2024 13:07:44 09/13/19 25 09/13/2024 COMP. METAB OLIC PANEL (14) albumin 4.2 g/dL 3.8-4. 8 normal Not Available [facility] ([facility]) [address] [place], [address], 09/13/2024 13:07:44 09/13/19 25 09/13/2024 COMP. METAB OLIC PANEL (14) globulin, total 3.2 g/dL 1.5-4. 5 Not Available [facility] ([facility]) [address] [place], [address], 09/13/2024 13:07:44 09/13/19 25 09/13/2024 COMP. METAB OLIC PANEL (14) bilirubin, total <0.2 mg/dL 0.0-1. 2 Not Available [facility] ([facility]) [address] [facility] [place], [address], 09/13/2024 13:07:44 09/13/19 25 09/13/2024 COMP. METAB OLIC PANEL (14) alkaline phosphatase 150 IU/L 44-121 above high normal Not Available [facility] ([facility]) [address] [facility] [place], [address], 09/13/2024 13:07:44 09/13/19 25 09/13/2024 COMP. METAB OLIC PANEL (14) AST (SGOT) 18 IU/L 0-40 normal Not Available [facility] ([facility]) [address] [facility] [place], [address], 09/13/2024 13:07:44 09/13/19 25 09/13/2024 COMP. METAB OLIC PANEL (14) ALT (SGPT) 15 IU/L 0-32 normal Not Available [facility] ([facility]) [address] [facility], [place], [address], 09/13/2024 13:07:44 09/13/19 25 09/13/2024 IRON AND TIBC iron bind.cap.(TI BC) 323 ug/dL 250-45 0 normal Not Available [facility] ([facility]) [address] [facility] [place], [address], 09/13/2024 13:07:45 09/13/19 25 09/13/2024 IRON AND TIBC UIBC 302 ug/dL 118-36 9 normal Not Available [facility] ([facility]) [address] [place], [address], 09/13/2024 13:07:45 09/13/19 25 09/13/2024 IRON AND TIBC iron 21 ug/dL 27-139 below low normal Not Available [facility] ([facility]) [address] [place], [address], 09/13/2024 13:07:45 09/13/19 25 09/13/2024 IRON AND TIBC iron saturation 7 % 15-55 alert low Not Available [facility] ([facility]) [address] [place], [address], 09/13/2024 13:07:45 09/13/19 25 09/13/2024 VITAM IN B12 AND FOLAT E vitamin B12 623 pg/mL 232-12 45 normal Not Available [facility] ([facility]) [address] [place], [address], 09/13/2024 13:07:45 09/13/19 25 09/13/2024 VITAM IN B12 AND FOLAT E folate (folic acid), serum 8.3 NG/mL >3.0 normal A serum folat e bobby ntrat ion of less than 3.1 ng/mL is consi dered to repre sent clini harsh defic iency . Not Available [facility] ([facility]) [address] [place], [address], 09/13/2024 13:07:45 09/13/19 25 09/13/2024 CK, TOTAL creatine kinase,total 42 U/L 32-182 normal Not Available [facility] ([facility]) [address] [place], [address], 09/13/2024 13:07:46 09/13/19 25 09/13/2024 HEMOG LOBIN A1C hemoglobin A1C 7.3 % 4.8-5. 6 above high normal Predi abete s: 5.7 - 6.4 Diabe mariam: >6.4 Glyce rene contr ol for adult s with diabe mariam: <7.0 Not Available [facility] ([facility]) [address] [place], [address], 09/13/2024 13:07:46 09/13/19 25 09/13/2024 VITAM IN D, 25-HY DROXY vitamin D, 25-hydroxy 64.8 NG/mL 30.0-1 00.0 Vitam in D defic iency has been defin ed by the Insti tute of Medic ine and an Endoc rine Socie ty pract ice guide line as a level of serum 25-OH vitam in D less than 20 ng/mL (1,2) . The Endoc rine Socie ty went on to furth er defin e vitam in D insuf ficie ncy as a level betwe en 21 and 29 ng/mL (2). 1. IOM (Inst itute of Medic ine). 2010. Dieta ry refer ence intak es for calci um and D. Jin chen [place]: The [facility] . 2. Merritt mccoy MF, Jacob echeverria [place], Magalys off-F errar i PINO, et al. Evalu ation , treat ment, and preve ntion of vitam in D defic iency : an Endoc rine Socie ty clini harsh pract ice guide line. JCEM. 2010; 96(7) :1911 -30. Not Available [facility] ([facility]) [address] [facility], [place], [address], 09/13/2024 13:07:47 09/13/19 25 09/13/2024 MAGNE SIUM magnesium 1.7 mg/dL 1.6-2. 3 normal Not Available [facility] ([facility]) [address] [facility], [place], [address], 09/13/2024 13:07:47 01/20/20 24 01/20/2024 XR, entir e spine , 6 or more view No observ ation record ed. [email or web address] [address], [place], [address], 01/20/2024 16:01:44 Result Notes None recorded. Problems Name Problem SNOMED Code Status Onset Date Resolution Date Notes Provider Name and Address Organization Details Recorded Time Mixed hyperlipid emia 074483754 Active 2015 Not Available [facility] 4 18:18:56 Essential hypertensi on 13341908 Active 2015 Not Available [facility] 4 18:18:56 Type 2 diabetes mellitus without complicati on 985053519 Completed 201503/21/2019 Trinidad Skinner MD [address], [place], [address] , [place] - [facility] 0 18:27:59 Anomalous atrioventr icular excitation 65064793 Completed 201502/11/2021 Trinidad Skinner MD [address], [place], [address] , [place] - [facility] 2 09:12:42 Body mass index 25-29 - overweight 466007598 Active 2015 Not Available [facility] 4 18:18:55 Osteopenia 856434214 Active 2015 Not Available [facility] 4 18:18:56 Chepe-Tatiana inson-Whit e pattern 10542597 Active 2016 Not Available [facility] 4 18:18:56 Anxiety 82538399 Completed 201701/12/2021 Trinidad Skinner MD [address], [place], [address] , [place] - [facility] 1 13:21:34 Neuropathy due to diabetes mellitus 053677974 Active 2018 Not Available [facility] 4 18:18:56 Uncontroll ed type 2 diabetes mellitus 078479832 Active 2019 Not Available [facility] 4 18:18:56 History of polyp of colon 546619587 Active 2019 Not Available [facility] 4 18:18:56 Mixed anxiety and depressive disorder 856382844 Active 2020 Kyra Domínguez APRN [address], [place], [address] , [place] - [facility] 4 15:24:10 Spinal stenosis of lumbar region 24909613 Active 2021 Not Available [facility] 4 18:18:55 Diarrhea 17295581 Active 2023 Not Available [facility] 4 18:18:56 Insomnia 963958737 Active 2023 Not Available [facility] 4 18:18:56 Gastroesop hageal reflux disease without esophagiti s 840338869 Active 2023 Kyra Domínguez, EVENT MANAGEMENT CONSULTANT [address], [place], [address] , [place] - [facility] 4 15:24:19 Memory impairment 795479311 Active 2024 Melissa Arabella [facility], [place] - [facility] 5 11:22:09 Problem Notes Documentation Provider Name and Address Organization Details Recorded Time Hospital History And Physical (h&p) - Pt Admitted : ELLIOTT History Physical - Adult REPORT #: [id number] REPORT STATUS: Signed DATE: 08/10/24 TIME: 1520 PATIENT: ISATU DELEON UNIT #: [id number] ROOM/BED: [address] AGE: 79 SEX: F ATTEND: Ned Berman MD ADM AUTHOR: JOSIAH PARIKH * ALL edits or amendments must be made on the electronic/computer document * History of Present Illness Date of Service: 08/10/24 Chief complaint: UTI FALL HPI: 79 year old female with history of anxiety, arthritis, chronic back pain, depression, diabetes, and HTN, presents to ER after falling at home. EMS reported they found her on the floor at home. She presented with bruising to her forehead and abrasion to the bridge of her nose. She states she got tripped up on her feet and lost her balance. She tells me she has been treated for UTI for the last several days by her PCP and has not had any dysuria since. EMS initally reported they were informed that the patient was laying on the floor for the last 2 days, however documentation does not clarify were their information came from. Patient's abrasions are obviously new and laboratory work up is not consistent with ascenciono, no deep tissue injuries. She has no leukocytosis, no electrolyte abnormalities. She does appear mildly dehydrated. She is normotensive, normal respirations, afebrile, on room air. We will admit overnight observation for UTI, fall. Allergies: Coded Allergies: exenatide (From [facility]ET[facility]) (Severe, NAUSEA 09/14/23) Problem List Problem List 1. UTI (urinary tract infection) 2. Fall at home Past Medical/Social History Past medical history: Reports: arthritis, depression, hypertension. Social history: Reports: unemployed, lives alone, , , no alcohol use, no drug abuse, no tobacco use. Review of Systems Constitutional: Denies: chills, fever, generalized weakness. Skin: Reports: abrasion, bruising, contusion. Respiratory: Denies: LINARES (dyspnea on exertion), non productive cough, productive cough ( sputum), SOB, wheezing. Cardiovascular: Denies: chest pain, LINARES (dyspnea on exertion), edema, orthopnea, palpitations. GI: Denies: abdominal pain, anorexia, constipation, diarrhea, nausea, vomiting. : Denies: dysuria, flank pain, frequency. Musculoskeletal: Reports: arthritis. Denies: extremity pain, joint pain. Neuro: Denies: change in LOC, dizziness, syncope. Psych: Denies: agitation, anxiety, homicidal ideation, suicidal ideation. Physical Exam VS/I O Vital Signs Result Date Time Pulse Ox 99 08/10 1300 B/P 116/55 08/10 1300 Pulse 74 08/10 1300 Resp 14 08/10 1300 General appearance: alert, awake, no acute distress, conversant, face symmetrical, MS normal Head/Eyes: PERRLA, bruising/contusion to mid forehead ENT: abrasion to bridge of nose Cardiovascular: normal capillary refill, regular rate rhythm, normal heart sounds Respiratory: clear to auscultation, no distress, no tenderness, aerating well, symmetric expansion Abdomen: soft, non-tender, no rebound, no distention Genitourinary: no bladder distension, no flank pain Extremities: moves all, no edema, normal capillary refill, normal range of motion Musculoskeletal: full range of motion, normal inspection Neuro/DREDGE PIPE OPERATOR: alert, oriented X 3 (baseline, mild confusion) Skin: dry, intact Psychiatry: normal affect, normal judgment/insight, normal mood, not homicidal, not suicidal Results Results: labs reviewed, vital signs stable Diagnosis, Assessment Plan Dx/Assessment/Plan: UTI Fall at home Diabetes, type 2 Hx back pain/arthritis HTN Admit to medical surgical unit observation Q4hr neuro checks IVF @100/hr IV ATB Encourage po Monitor am labs ACHS glucose monitoring with low dose SSI Physical therapy eval Resume home medications SS for safe discharge DVT prophylaxis, SCD boots GI prophylaxis, protonix FULL CODE NOK per chart depression screening negative Shared decision-making Patient agrees with the above plan will proceed. All questions asked were answered in detail Advanced care planning: I confirmed that the patient's advanced care plan is present, code status is documented, or surrogate decision maker is listed in the patient's medical record. External documentation review: I have reviewed patient's records from several sources including emergency department notes, prior discharge summary, prior admission H P, prior diagnostic imaging/laboratory reports. Potential Risk of Events: Potential risk of an Adverse Event for this patient may include: [ infection, bleeding, respiratory arrest, cardiac arrest] Orders: Procedure Date/time Status CBC W/AUTO DIFFERENTIAL 08/11 06 Active BASIC METABOLIC PANEL 08/11 0600 Active REGULAR DIET 08/10 D Active Hypoglycemia Protocol + 08/10 1606 Active Blood Glucose Monitoring + 08/10 1606 Active Suggested Problem 08/10 1518 Active Vital Signs + 08/10 1518 Active Saline Lock + 08/10 1518 Active RT: Oxygen Therapy + 08/10 1518 Active Intake Output + 08/10 1518 Active Weight: Obtain -POM + 08/10 1518 Active CODE STATUS 08/10 1518 Active ADMIT ORDER FROM [facility] 08/10 1518 Active Sequential Compression Device 08/10 UNK Active MARKLOGIC DEVELOPER CONSULT 08/10 UNK Active PHYSICAL THERAPY CONSULT 08/10 UNK Active Medications Ordered - 12 Hrs Acetaminophen 650 MG Q6HP PRN PO PAIN 1-3/TEMP >/= 100.5 Al Hydrox/Mg Hydrox/Simethicone 30 ML Q4HP PRN PO DYSPEPSIA Docusate Sodium 100 MG BIDP PRN PO CONSTIPATION Magnesium Hydroxide 30 ML DP PRN PO CONSTIPATION Ondansetron HCl 4 MG Q8HP PRN IV NAUSEA AND VOMITING Sodium Chloride 1,000 ML UD IV Code status: full code Plan discussed with: patient at [facility] #: [id number] END OF REPORT CC'ed Logic: Attending Provider: ISABEL VALERIO Referring Provider: PHYSICIAN FARNAZ Consulting Provider: CANDACE WALKER Admitting Provider: ISABEL becerra [place] - [facility] 08/14/2024 08:44:34 Procedures Surgical History Date Name Laterality Status Provider Name and Address Organization Details Recorded Time 01/03/20 24 Advance Care Planning completed Lisbet Guy [place] - [facility] 01/03/2024 15:13:23 01/03/20 24 Functional Status Assessed completed Lisbet Guy [place] - [facility] 01/03/2024 15:13:23 05/18/19 24 Medication Reconcilliation completed Lisbet Guy [place] - [facility] 05/18/2023 08:28:01 05/14/19 24 IV Infusion completed Melissa Bell [place] - [facility] 05/14/2023 13:48:14 05/04/19 24 Medication Reconcilliation completed Melissa Bell [place] - [facility] 05/04/2023 14:56:46 09/22/19 23 Advance Care Planning completed Mary Munoz [place] - [facility] 09/21/2022 10:12:15 09/22/19 23 Functional Status Assessed completed Mary Munoz [place] - [facility] 09/21/2022 10:12:15 03/17/19 23 Date of Last Mammogram completed Trinidad Skinner MD [address], [place], [address], [place] - [facility] 03/17/2022 19:54:44 09/11/19 22 Most Recent Bone Density completed Trinidad Skinner MD [address], [place], [address], [place] - [facility] 09/10/2021 12:29:47 09/29/19 20 Systolic B/P less than 130 mm Hg completed Mary Munoz [place] - [facility] 09/29/2019 10:35:25 09/29/19 20 Diastolic B/P less than 80 mm Hg completed Mary Munoz [place] - [facility] 09/29/2019 10:35:28 06/29/19 20 Systolic B/P less than 130 mm Hg completed Mary Munoz [place] - [facility] 06/29/2019 08:25:26 06/29/19 20 Diastolic B/P less than 80 mm Hg completed Mary Munoz [place] - [facility] 06/29/2019 08:25:34 02/08/19 15 Elbow arthroscopy/surger y completed [facility] [address], [place], [address], [facility] - [facility] 01/09/2016 09:05:19 09/23/19 14 Date of Last Pap Smear completed [facility] [address], [place], [address], [facility] - [facility] 01/09/2016 08:50:50 02/08/19 10 Cholecystectomy, laparoscopic completed [facility] [address], [place], [address], [facility] - [facility] 01/09/2016 09:00:18 04/17/19 06 Hysterectomy, Total Abdominal completed [facility] [address], [place], [address], [facility] - [facility] 01/09/2016 09:05:47 02/08/19 03 completed [facility] [address], [place], [address], [facility] - [facility] 01/09/2016 08:49:44 02/08/18 96 Colposcopy completed [facility] [address], [place], [address], [facility] - [facility] 01/09/2016 09:04:28 02/08/18 96 Cryocautery of cervix completed [facility] [address], [place], [address], [facility] - [facility] 01/09/2016 09:04:49 02/08/18 95 Dilation and curettage completed [facility] [address], [place], [address], [facility] - [facility] 01/09/2016 09:05:01 Imaging Results None recorded. Procedure Notes None recorded. Medical Equipment None Reported. Allergies Allergen ID Allergen Name Allergen Category Reaction Reaction Severity Criticality Documentation Date Start Date Code Code System Note Provider Name and Address Organization Details Recorded Time 92757 [facility] medicatio n nausea Not available Not available 01/14/2016 51192 1 RxNorm Taylor [place], [place] - [facility] 6 09:23:27 75507 gabapenti n medicatio n nausea mild Not available 04/19/20172015 20411 RxNorm [place] [facility] 09:[facility]:16 Medications Name Sig Start Date Stop Date Status Note LastModified by Organization Details LastModified Time cyclobenz aprine 10 mg tablet Take 1 tablet 3 times a day by oral route as needed. 05/10 completed Not Available Not Available Not Available amoxicill in 500 mg capsule 03/17 completed Not Available Not Available Not Available metformin 500 mg tablet TAKE ONE (1) TABLET BY MOUTH EACH MORNING, THEN ONE HALF (1/2) TABLET NIGHTLY active Not Available Not Available No t Available clonidine HCl 0.1 mg tablet Take 1 tablet every day by oral route as directed for 7 days. 12/01 completed Not Available Not Available Not Available desoximet asone 0.25 % topical cream APPLY A THIN LAYER TO THE AFFECTED AREA(S) BY TOPICAL ROUTE 2 TIMES PER DAY ; RUB IN GENTLY AND COMPLETE LY 01/13 completed Not Available Not Available Not Available tizanidin e 2 mg tablet active Not Available Not Available Not Available trazodone 50 mg tablet Take 1-2 tablets 30 minutes - 1 hour prior to bedtime 05/10 completed Not Available Not Available Not Available Betapace 120 mg tablet I PO BID 05/28 completed Betapace 120 mg oral tablet;R ecorded Status: Recorded on: 11/12/19 08 10:03PM; Disconti nued Status: Disconti nued on: 05/29/19 12 11:18AM; User: andria brady Not Available Not Available Not Available triamcino lone acetonide 0.5 % topical cream apply a thin layer to the affected area(s) by topical route 2 times per day 01/13 completed Not Available Not Available Not Available azithromy braden 250 mg tablet TAKE ONE TABLET BY MOUTH DAILY FOR FOUR DAYS 10/25 completed Not Available Not Available Not Available tizanidin e 4 mg tablet TAKE ONE (1) TABLET AT BEDTIME NEEDED active Not Available Not Available No t Available benzonata te 200 mg capsule Take 1 capsule 3 times a day by oral route as needed. 03/03 completed Not Available Not Available Not Available hydrocodo ne 5 mg-acetam inophen 325 mg tablet TAKE ONE TABLET BY MOUTH EVERY TWELVE HOURS NEEDED MAY CAUSE DROWSINE SS 11/24 completed Not Available Not Available Not Available sotalol 80 mg tablet TAKE 2 TABLETS TWICE DAILY 2024 active Not Available Not Available Not Avai lable meloxicam 15 mg tablet TAKE ONE (1) TABLET EVERY DAY BY ORAL ROUTE WITH A MEAL active Not Available Not Available No t Available sucralfat e 1 gram tablet TAKE ONE TABLET BY MOUTH THREE TIMES DAILY FOR SEVEN DAYS active Not Available Not Available No t Available prednison e 20 mg tablet Take 1 tablet every day by oral route in the morning. 02/21 completed Not Available Not Available Not Available alendrona te 70 mg tablet TAKE 1 TABLET EVERY WEEK 1st thing in the morning with a full class of water, then nothing to eat and don't lie down for 30 mins 10/25 completed patient has vomiting and diarrhea Not Available Not Available Not Available clonazepa m 0.5 mg tablet TAKE ONE TABLET BY MOUTH EVERY OTHER DAY 09/16 completed Not Available Not Available Not Available sertralin e 100 mg tablet TAKE ONE (1) TABLET BY MOUTH EVERY DAY active Not Available Not Available No t Available clonazepa m 1 mg tablet TAKE ONE TABLET BY MOUTH TWICE DAILY 09/16 completed Not Available Not Available Not Available metformin 850 mg tablet TAKE 1 TABLET TWICE DAILY active Not Available Not Available No t Available orphenadr ine-ASA-c affeine 25 mg-385 mg-30 mg tablet active Not Available Not Available Not Available Inderal 10 mg tablet 1 PO TID 05/28 completed Inderal 10 mg;Recor ded Status: Recorded on: 11/12/19 08 10:03PM; Disconti nued Status: Disconti nued on: 05/29/19 12 11:18AM; User: andria brady Not Available Not Available Not Available meclizine 12.5 mg tablet 06/08 completed Not Available Not Available Not Available melatonin 3 mg tablet TAKE ONE (1) TABLET NEEDED BY ORAL ROUTE AT BEDTIME FOR 15 DAYS. 04/06 completed Not Available Not Available Not Available Glucophag e 1,000 mg tablet take 1 tablet (1,000 mg) by oral route 2 times per day with morning and evening meals 05/28 completed Glucopha ge 1,000 mg oral tablet;R ecorded Status: Recorded on: 11/29/19 08 11:07AM; Disconti nued Status: Disconti nued on: 05/29/19 12 11:16AM; User: andria brady;Indic ation: Type 2 Diabetes Mellitus - () Not Available Not Available Not Available sulfameth oxazole 800 mg-trimet hoprim 160 mg tablet Take 1 tablet every 12 hours by oral route for 7 days. 10/21 completed Not Available Not Available Not Available hydrocodo ne 10 mg-acetam inophen 325 mg tablet TAKE ONE TABLET BY MOUTH EVERY 6 HOURS NEEDED FOR PAIN MAY CAUSE DROWSINE SS 05/27 completed states she takes when she has it- plans to go to pain clinic Not Available Not Available Not Available omeprazol e 40 mg capsule,d elayed release TAKE ONE CAPSULE BY MOUTH EVERY DAY 06/20 completed Not Available Not Available Not Available SPS (with sorbitol) 15 gram-20 gram/60 mL oral suspensio n TAKE 60 ML EVERY DAY BY ORAL ROUTE, FOR HYPERKAL EMIA. 09/12 completed Not Available Not Available Not Available lovastati n 10 mg tablet TAKE ONE (1) TABLET BY MOUTH EVERY NIGHT AT BEDTIME active Not Available Not Available No t Available triamcino lone acetonide 0.1 % topical cream APPLY A THIN LAYER TO THE AFFECTED AREA(S) BY TOPICAL ROUTE TWICE DAILY NEEDED 07/01 completed Not Available Not Available Not Available amoxicill in 500 mg tablet Take 1 tablet twice a day by oral route for 10 days, for sinus infectio n. 03/23 completed Not Available Not Available Not Available Amaryl 4 mg tablet take 1 tablet (4 mg) by oral route twice daily 01/13 completed Amaryl 4 mg oral tablet;R ecorded Status: Recorded on: 09/13/19 16 3:52PM;U ser: [email or web address] Not Available Not Available Not Available sodium polystyre ne sulfonate 15 gram/60 mL oral suspensio n Take 15 g every day by oral route for 2 days, for hyperkal emia. 07/01 completed Not Available Not Available Not Available famotidin e 20 mg tablet TAKE ONE (1) TABLET TWICE A DAY BY ORAL ROUTE FOR 30 DAYS. 09/15 completed Not Available Not Available Not Available hydrocort isone 2.5 % lotion APPLY A THIN LAYER TO THE AFFECTED AREA(S) BY TOPICAL ROUTE ONCE DAILY 10/01 completed Not Available Not Available Not Available gentamici n 0.3 % eye drops INSTILL 1 DROP INTO AFFECTED EYE(S) BY OPHTHALM IC ROUTE EVERY 4 HOURS while awake for 4-7 days 06/27 completed Not Available Not Available Not Available amlodipin e 10 mg tablet TAKE 1 TABLET EVERY DAY active Not Available Not Available No t Available benzonata te 100 mg capsule Take 1 capsule twice a day by oral route for 3 days. 07/23 completed Not Available Not Available Not Available hydrocodo ne 7.5 mg-acetam inophen 325 mg tablet TAKE ONE (1) TABLET BY MOUTH THREE (3) TIMES DAILY active Not Available Not Available No t Available cephalexi n 500 mg capsule Take 1 capsule twice a day by oral route for 7 days. 08/22 completed Not Available Not Available Not Available pantopraz ole 40 mg tablet,de layed release TAKE ONE TABLET BY MOUTH EVERY MORNING FOR FOUR WEEKS 06/13 completed Not Available Not Available Not Available buspirone 10 mg tablet TAKE ONE TABLET BY MOUTH TWICE DAILY 05/17 completed Not Available Not Available Not Available lidocaine 5 % topical patch APPLY 1 PATCH BY TOPICAL ROUTE ONCE DAILY (MAY WEAR UP TO 12HOURS. ) 12/12 completed Not Available Not Available Not Available losartan 25 mg tablet take 1 tablet (25 mg) by oral route once daily 04/14 completed Not Available Not Available Not Available Amaryl 2 mg tablet take 1 tablet (2 mg) by oral route once daily 05/28 completed Amaryl 2 mg oral tablet;c omment: error in entry;Re corded Status: Recorded on: 05/29/19 12 11:16AM; Disconti nued Status: Disconti nued on: 05/29/19 12 11:16AM; User: arianna Peña ion: Type 2 Diabetes Mellitus - () Not Available Not Available Not Available gabapenti n 300 mg capsule TAKE ONE CAPSULE BY MOUTH DAILY MAY cause drowsine ss 07/01 completed Not Available Not Available Not Available buspirone 7.5 mg tablet TAKE ONE TABLET BY MOUTH TWICE DAILY NEEDED 03/23 completed Not Available Not Available Not Available omeprazol e 20 mg capsule,d elayed release TAKE ONE (1) CAPSULE BY MOUTH TWICE DAILY 2024 active Not Available Not Available Not Avai lable Provera 10 mg tablet 1 po qd x 10 d report any bleeding whatsoev er 11/28 completed Provera 10 mg oral tablet;R ecorded Status: Recorded on: 11/12/19 08 10:02PM; Disconti nued Status: Disconti nued on: 11/29/19 08 11:11AM; User: [email or web address] Not Available Not Available Not Available ceftriaxo ne 500 mg solution for injection Inject 500mg IM x 1 08/03 completed Not Available Not Available Not Available furosemid e 20 mg tablet Take 1 tablet every day by oral route for 2 days. 05/23 completed Not Available Not Available Not Available levofloxa braden 500 mg tablet Take 1 tablet every 24 hours by oral route. 10/27 completed Not Available Not Available Not Available lovastati n 20 mg tablet 08/03 completed Not Available Not Available Not Available methylpre dnisolone 4 mg tablets in a dose pack 06/08 completed Not Available Not Available Not Available sodium polystyre ne sulfonate 15 gram oral powder take 15 grams (ONE BOTTLE) BY MOUTH EVERY DAY FOR TWO DAYS 05/10 completed Not Available Not Available Not Available ketorolac 60 mg/2 mL intramusc ular solution Inject 2 mL as needed by intramus cular route. 03/02 completed Not Available Not Available Not Available Percocet 5 mg-325 mg tablet 05/28 completed Percocet 5-325 mg oral tablet;R ecorded Status: Recorded on: 11/29/19 08 11:11AM; Disconti nued Status: Disconti nued on: 05/29/19 12 11:18AM; User: [email or web address] nk;Indic ation: Pain - (6162 00) Not Available Not Available Not Available fluocinon raphael 0.05 % topical cream 01/13 completed Not Available Not Available Not Available Zocor 5 mg tablet take 1 tablet (5 mg) by oral route once daily in the evening 05/28 completed Zocor 5 mg oral tablet;R ecorded Status: Recorded on: 11/29/19 08 11:07AM; Disconti nued Status: Disconti nued on: 05/29/19 12 11:18AM; User: [email or web address] nk;Indic ation: Mixed Hyperlip idemia - (0950 ) Not Available Not Available Not Available ondansetr on 4 mg disintegr ating tablet TAKE ONE (1) TABLET BY MOUTH EVERY 8 HOURS NEEDED FOR NAUSEA AND VOMITING active Not Available Not Available No t Available cefdinir 300 mg capsule t1cpo EVERY 12 HOURS FOR 10 DAYS 10/25 completed Not Available Not Available Not Available losartan 100 mg tablet 06/08 completed Not Available Not Available Not Available fluticaso ne propionat e 50 mcg/actua tion nasal spray,[facility] [employer] [place] 1 spray every day by intranas al route. 07/01 completed Not Available Not Available Not Available clotrimaz ole 1 % topical cream 01/13 completed Not Available Not Available Not Available sertralin e 50 mg tablet TAKE ONE TABLET BY MOUTH EVERY DAY 10/25 completed Not Available Not Available Not Available candesart an 8 mg tablet TAKE ONE (1) TABLET BY MOUTH EVERY DAY active Not Available Not Available No t Available doxycycli ne hyclate 100 mg tablet 11/28 completed Not Available Not Available Not Available dicyclomi ne 10 mg capsule TAKE ONE (1) CAPSULE TWICE A DAY BY ORAL ROUTE FOR FIVE (5) DAYS. 04/06 completed Not Available Not Available Not Available Microlet Lancet USE DIRECTED active Not Available Not Available No t Available buspirone 15 mg tablet TAKE ONE (1) TABLET TWICE A DAY BY ORAL ROUTE. active Not Available Not Available No t Available esomepraz ole magnesium 20 mg capsule,d elayed release TAKE ONE CAPSULE BY MOUTH EVERY DAY 10/28 completed Not Available Not Available Not Available Vicodin ES 750 mg-7.5 mg tablet PRN 09/12 completed Replaced /Retired Drug 750-7.5 mg oral tablet;R ecorded Status: Recorded on: 11/12/19 08 10:05PM; Disconti nued Status: Disconti nued on: 09/13/19 16 3:52PM;U ser: [email or web address] nk Not Available Not Available Not Available Blood Glucose Test strips Take 1 strip 3 times a day by miscell. route. 2023 active Not Available Not Available Not Avai lable Mucinex 600 mg tablet, extended release Take 1 tablet every 12 hours by oral route. 03/03 completed Not Available Not Available Not Available Heartburn Relief (famotidi ne) 10 mg tablet TAKE ONE (1) TABLET EVERY DAY BY ORAL ROUTE. active Not Available Not Available No t Available Premarin 0.625 mg/gram vaginal cream insert 1/4 lester by vaginal route 3-4 x per week 09/12 completed Premarin 0.625 mg/gram vaginal cream;Pr escribe Status: Prescrib ed on: 10/03/19 14 9:52AM;D iscontin ued Status: Disconti nued on: 09/13/19 16 3:49PM;U ser: [email or web address]; Pharmacy Verified : 10/03/19 14 9:52AM Not Available Not Available Not Available hydrocodo ne 10 mg-acetam inophen 300 mg tablet TAKE 1 TABLET BY MOUTH EVERY 6 HOURS NEEDED FOR PAIN 02/09 completed Not Available Not Available Not Available nitrofura ntoin monohydra te/macroc rystals 100 mg capsule TAKE 1 CAPSULE BY MOUTH TWICE DAILY 08/08 completed Not Available Not Available Not Available BD Ultra-Fin e Mini Pen Needle 31 gauge x 04/23 USE as directed with insulin active Not Available Not Available No t Available Boniva 150 mg tablet Take 1 tablet every month by oral route. 07/20 completed Not Available Not Available Not Available ramelteon 8 mg tablet TAKE ONE (1) TABLET BY MOUTH EVERY NIGHT AT BEDTIME FOR SLEEP PROBLEMS active Not Available Not Available No t Available lancets 1 tid dx E11.9 03/17 completed Not Available Not Available Not Available Levemir FlexPen 100 unit/mL (3 mL) solution subcutane ous insulin pen INJECT 45 UNITS UNDER THE SKIN EVERY DAY AT BEDTIME active Not Available Not Available No t Available Lantus Solostar U-100 Insulin 100 unit/mL (3 mL) subcutane ous pen Inject 45 units every day by subcutan eous route at bedtime. 11/24 completed Not Available Not Available Not Available diclofena c 1 % topical gel APPLY 2 GRAMS TO THE AFFECTED AREA(S) BY TOPICAL ROUTE 4 TIMES PER DAY PRN 06/04 completed Not Available Not Available Not Available GaviLyte- G 236 gram-22.7 4 gram-6.74 gram-5.86 gram oral solution 11/24 completed Not Available Not Available Not Available BD Ultra-Fin e Evette Pen Needle 32 gauge x /32 USE DIRECTED active Not Available Not Available No t Available Probiotic 10 billion cell capsule Take 1 capsule every day by oral route for 30 days. 07/01 completed Not Available Not Available Not Available Contour Control Solution, Low daily 03/17 completed Not Available Not Available Not Available Contour Control Solution, High daily 03/17 completed Not Available Not Available Not Available Alkol 3 Fish Oil 684 mg-1,200 mg capsule,d elayed release take 1 capsule by oral route daily 09/12 completed Alkol 3 Fish Oil 684-1,20 0 mg oral capsule, delayed release( DR/EC);R ecorded Status: Recorded on: 05/29/19 12 11:18AM; Disconti nued Status: Disconti nued on: 09/13/19 16 3:52PM;U ser: [email or web address] Not Available Not Available Not Available Contour Next Test Strips twice daily 03/17 completed Not Available Not Available Not Available Contour Next Level 2 Control Solution USE DIRECTED WITH GLUCOSE METER 03/17 completed Not Available Not Available Not Available Farxiga 5 mg tablet Take 1 tablet every day by oral route. 06/04 completed Not Available Not Available Not Available Jardiance 10 mg tablet Take 1 tablet every day by oral route. 05/16 completed Not Available Not Available Not Available Jardiance 25 mg tablet Take 1 tablet every day by oral route. 08/28 completed Nausea Not Available Not Available Not Available True Metrix Level 1 solution USE DIRECTED 03/17 completed Not Available Not Available Not Available Eric CortesoStar U-300 Insulin 300 unit/mL (1.5 mL) subcutane ous pen Inject 25 units every day by subcutan eous route at dinner. 2023 active Not Available Not Available Not Avai lable Narcan 4 mg/actuat ion nasal spray Take 2 sprays every day by nasal route as needed for 1 day. 08/28 completed pain clinic Not Available Not Available Not Available OneTouch Verio Flex Meter USE DIRECTED 03/17 completed Not Available Not Available Not Available Soliqua 100/33 100 unit-33 mcg/mL subcutane ous insulin pen Inject 30 units every day by subcutan eous route in the evening. 11/28 completed 11/2021 stopped caused nausea Not Available Not Available Not Available Microlet Next Lancing Device kit USE DIRECTED WITH LANCETS 2023 active Not Available Not Available Not Avai lable Shingrix (PF) 50 mcg/0.5 mL intramusc ular suspensio n, kit 04/14 completed Not Available Not Available Not Available OneTouch Delica Plus Lancet 33 gauge USE DIRECTED active Not Available Not Available No t Available OneTouch Delica Plus Lancet 30 gauge USE DIRECTED FOUR TIMES DAILY 03/17 completed Not Available Not Available Not Available Flublok Quad (PF) 180 mcg (45 mcg x 4)/0.5 mL IM syringe PHARMACI ST ADMINIST ERED IMMUNIZA TION ADMINIST ERED AT TIME OF DISPENSI NG 12/01 completed Not Available Not Available Not Available Salonpas (lidocain e) 4 % topical patch Apply 1 patch every day by topical route as needed for 15 days. 2024 active Not Available Not Available Not Avai lable FreeStyle Amber 2 Sensor kit APPLY ONE SENSOR TO SKIN ONCE EVERY 14 DAYS. USE DIRECTED TO MONITOR BLOOD GLUCOSE. 07/01 completed Not Available Not Available Not Available FreeStyle Amber 2 [place] USE as directed 07/01 completed Not Available Not Available Not Available Fluzone High-Dose Quad 2020 (PF) 240 mcg/0.7 mL IM syringe PHARMACI ST ADMINIST ERED IMMUNIZA TION ADMINIST ERED AT TIME OF DISPENSI NG 03/08 completed Not Available Not Available Not Available DropSafe Alcohol Prep Pads TEST BLOOD SUGAR THREE TIMES DAILY FOR INSULIN- DEPENDEN T TYPE 2 DM 2022 active Not Available Not Available Not Avai lable Dexcom G7 Inspector Bicycle USE DIRECTED 07/01 completed Not Available Not Available Not Available Dexcom G7 Sensor device USE DIRECTED 07/01 completed Not Available Not Available Not Available Vitals Date Recorded Body height Body mass index (BMI) Body weight Respiratory rate Heart rate Oxygen saturation Oxygen saturation in Arterial blood by Pulse oximetry Body temperature Systolic And Diastolic Provider Name and Address Organization Details Last Updated DateTime 5 154.94 cm 17.4 kg/m2 04530.5 g 18 /min 80 /min 98 % 98 % 97.6 [degF] 102/56 mm[Hg] Melissa Brandons [place] - [facility] 5 11:23:26 Date Recorded Body height Body mass index (BMI) Body weight Heart rate Oxygen saturation Oxygen saturation in Arterial blood by Pulse oximetry Respiratory rate Pain severity - 0-10 verbal numeric rating [Score] - Reported Body temperature Systolic And Diastolic Provider Name and Address Organization Details Last Updated DateTime 5 154.94 cm 16.5 kg/m2 49066.9 4 g 73 /min 96 % 96 % 18 /min 0 97.4 [degF] 84/50 mm[Hg] Lisbet Guy [place] - [facility] 5 13:06:18 Date Recorded Body height Body mass index (BMI) Body weight Heart rate Oxygen saturation Oxygen saturation in Arterial blood by Pulse oximetry Respiratory rate Body temperature Systolic And Diastolic Provider Name and Address Organization Details Last Updated DateTime 5 154.94 cm 16.2 kg/m2 58263.9 4 g 78 /min 97 % 97 % 18 /min 97.9 [degF] 120/56 mm[Hg] Melissa Stears [place] - [facility] 5 16:28:03 Date Recorded Body height Body mass index (BMI) Body weight Body temperature Heart rate Respiratory rate Oxygen saturation Oxygen saturation in Arterial blood by Pulse oximetry Systolic And Diastolic Provider Name and Address Organization Details Last Updated DateTime 5 154.94 cm 16.4 kg/m2 35245.5 4 g 98 [degF] 76 /min 18 /min 100 % 100 % 110/62 mm[Hg] Melissa Bell [place] - [facility] 5 14:21:57 Date Recorded Body height Body mass index (BMI) Body weight Body temperature Heart rate Oxygen saturation Oxygen saturation in Arterial blood by Pulse oximetry Respiratory rate Pain severity - 0-10 verbal numeric rating [Score] - Reported Systolic And Diastolic Provider Name and Address Organization Details Last Updated DateTime 4 154.94 cm 18.6 kg/m2 31852.4 5 g 98.3 [degF] 71 /min 97 % 97 % 18 /min 0 110/60 mm[Hg] Lisbet Brooks [place] - [facility] 4 14:21:38 Social History Question Answer Notes LastModified by Organizat ion Details LastModified Time Tobacco Smoking Status Never Smoker [address], [place], [address], [place] - [facility] 01/09/2016 08:58:40 Able To Swim? No Information not available 10/09/2016 Do You Have An Advance Directive? No [email or web address] Information not available 01/09/2016 Are You Blind Or Do You Have Difficulty Seeing? No [email or web address] Information not available 01/09/2016 What Is Your Level Of Caffeine Consumption? Occasional Information not available 01/09/2016 Are You Deaf Or Do You Have Serious Difficulty Hearing? No [email or web address] Information not available 01/09/2016 What Type Of Diet Are You Following? DIABETIC [email or web address] Information not available 01/09/2016 Which Illicit Or Recreational Drugs Have You Used? None [email or web address] Information not available 01/09/2016 What Is The Highest Grade Or Level Of School You Have Completed Or The Highest Degree You Have Received? [id number] Information not available 09/29/2019 Swimming/diving No Informati on not available 10/09/2016 Have There Been Any Changes To Your Family Or Social Situation? No Information not available 02/11/2021 Hard Of Hearing Or Deaf In One Or Both Ears? No [email or web address] Information not available 01/09/2016 Legally Blind In One Or Both Eyes? No [email or web address] Information not available 01/09/2016 Live Alone Or With Others? With Others [email or web address] Information not available 01/09/2016 Do You Have A Medical Power Of Leather Piece Inspector? No Information not available 02/11/2021 What Was The Date Of Your Most Recent Tobacco Screening? 09/12/2024 [email or web address] Information not available 09/12/2024 How Many Children Do You Have? 1 [email or web address] Information not available 01/09/2016 What Is Your Relationship Status? Information not available 01/09/2016 Seat Belts Used Routinely Yes [email or web address] Information not available 01/09/2016 Are You Sexually Active? Yes [email or web address] Information not available 01/09/2016 Smoke Alarm In Home Yes [email or web address] Information not available 01/09/2016 Do You Have Smoke And Carbon Monoxide Detectors In Your Home? Yes Information not available 02/11/2021 How Much Tobacco Do You Smoke? No [email or web address] Information not available 01/09/2016 General Stress Level Medium [email or web address] Information not available 01/09/2016 Do You Use Sunscreen Routinely? No Information not available 10/09/2016 Has Tobacco Cessation Counseling Been Provided? No [email or web address] Information not available 10/09/2016 On What Date Was Tobacco Cessation Counseling Provided? 06/14/2023 [facility] Answered No To The Tobacco Cessation Counseling Provided Question On 10/09/2016. Information not available 06/14/2023 How Many Years Have You Smoked Tobacco? 0 [email or web address] Information not available 01/09/2016 Do You Have Difficulty Walking Or Climbing Stairs? No [email or web address] Information not available 01/09/2016 Sex: Female Functional Status Question Answer Note LastModified by Organizat ion Details LastModified Time Do you use any illicit or recreational drugs? No Information not available 02/11/2021 Do you or have you ever used any other forms of tobacco or nicotine? No Information not available 09/21/2022 What is your level of alcohol consumption? None [email or web address] Information not available 01/09/2016 Are you currently employed? No Information not available 01/09/2016 Do you have transportation difficulties? No Information not available 09/21/2022 Are you able to walk independently without assistance or assistive devices? [email or web address] Information not available 10/09/2016 Do you have difficulty doing errands alone? No [email or web address] Information not available 01/09/2016 Are you able to care for yourself independently? Yes [email or web address] Information not available 01/09/2016 What is your occupation? Retired [email or web address] Information not available 01/09/2016 Do you have difficulty dressing, bathing, grooming, or toileting? No [email or web address] Information not available 01/09/2016 Do you or have you ever used e-cigarettes or vape? Never used electronic cigarettes Information not available 12/01/2018 What is your exercise level? None Information not available 01/09/2016 Mental Status Question Answer Note LastModified by Organization D etails LastModified Time Do you have difficulty concentrating, remembering or making decisions? No [email or web address] Information no t available 01/09/2016 Family History Relationship Description Onset Age of this Age Resolved Age Notes LastModified by Organization Details LastModified Time Father Cardiac arrhythmia [email or web address]-p taiwo on white syndro me [email or web address] Not available 01/09/2016 08:51:51 Father Hypertensive disorder [email or web address] Not available 01/08 08:52:00 Father Carcinoma in situ of skin [email or web address] Not available 08:52:11 Medical History Condition Response Pancreatitis N Coronary Artery Disease N Other N Gout N Atrial Fibrillation N congenital heart disease N Blood Diseases N Kidney Stones N Hyperthyroidism N Rheumatoid arthritis N Blood Transfusion N Erectile Dysfunction N amputation N Skin Lesions N COPD N Depression N Pneumonia N Incontinence N Murmur N Edema N Alzheimer's Disease N Migraine Headaches N Tobacco Abuse N Anxiety Disorder N Muscle, Joint, or Bone Problems N Hemorrhoids N Obesity N Vision or Eye Problems N Restless Leg Syndrome N Arthritis N Infertility N Polyps N Carpal Tunnel N Mental Disorder N Acid Reflux (GERD) N Cancer Y Stroke N Varicosities N Tendonitis N Crohn's Disease N Hypercholesterolemia N Skin Cancer N Fibromyalgia N Headaches N Anal Fissure N Irritable Bowel Syndrome N Kidney Disease N Heart Problems Y Ear or Hearing Problems N Hospitalizations N Gallstones N Kidney or Bladder Problems N Goiter N Acne N Skin Problems N Eating Disorder N Dominguez's Esophagus N Hypertriglyceridemia N MRSA exposure N Constipation N Embolism N Vitamin B12 Deficiency N Deviated Septum N Tuberculosis N AIDS/HIV N Myocardial Infarction N Asthma N Mitral Valve Disorders N Vertigo N Hepatitis N Thyroid Cancer N Neuropathy N Pulmonary Embolism N History of DVT N Herniated Disc N Chronic Ear Infections N Chicken Pox N Autism Spectrum Disorder (ASD) N Von Willebrands Disease N Thrombophilias N Breast Cancer N Hernia N Plantar Fasciitis N Hospital Admission Other Than N Hypothyroidism N Lung Disease N Defects or Inherited Disease N Developmental or Behavioral Disorders N Breast Problem N Difficulty Swallowing N Ovarian Cyst N Anesthesia Complications N Testosterone Deficiency N Meniere's disease N Head Injury/Concussion N Interstitial Cystitis N Congenital Anomalies N Hypoglycemia N Blood clot N Vitamin D Deficiency N Cellulitis N Endometriosis N Fracture N Bladder or Kidney Problems N Liver Disease N Panic Disorder N Schizophrenia N Concussion N Spina Bifida N Allergies/Hayfever N Osteoarthritis N Parkinson's Disease N Disc Protrusion N STI N Esophagitis N Angina N Thyroid Problems N GI Problems N ADD/ADHD N Anemia N Multiple Sclerosis N Abnormal PAP N Lumbago N Mental Illness N Psychiatric Illness N Diabetes Y Ovarian Cancer N Bedwetting N Degenerative Disc Disease N Seizures/Epilepsy N Congestive Heart Failure (CHF) N Hyperlipidemia Y Syncope N Insomnia N Eczema N Abuse/Domestic Violence N Attention Deficient Disorder N Diverticulitis N Dementia N Ulcerative colitis N Cerebrovascular Disease N Depression N Guillain-Selfridge N Sleep Apnea N Aneurysm Y Bronchitis N Heart Disease N Suicidal Ideation N Pre-Eclampsia N Hypertension Y Osteoporosis N Gynecological History Statement/Question Response Abnormal Pap N If Post Menopausal, Age at Menopause 50 Date of Last Colonoscopy Date of Last Mammogram 03/17/2022 Most Recent Bone Density 09/10/2021 Menses Monthly N Date of Last Pap Smear 09/22/2013 LMP Unknown 02/08/2002 Obstetrics History GPAL:G 1 P 1 0 0 1 Type Value Full Term 1 Living 1 Total 1 Immunizations Vaccine Type Date Status Note Provider Nam e and Address Organization Details Recorded Time zoster recombinant 8 completed Not Available [facility] 09/12/2024 13:38:10 Tdap 0 completed Mary Munoz null, [place] - [facility] 09/29/2019 13:26:23 Influenza, split virus, quadrivalent, preservative 7 completed Not Available [facility] 02/25/2019 03:54:35 Influenza, high-dose, quadrivalent, PF 2 completed Mary Munoz null, [place] - [facility] 12/25/2021 15:38:37 influenza, unspecified formulation 3 completed Not Available [facility] 03/29/2023 18:18:57 influenza, unspecified formulation 1 completed Not Available [facility] 03/29/2023 18:18:57 influenza, unspecified formulation 2 completed Not Available [facility] 03/29/2023 18:18:57 Influenza, split virus, quadrivalent, preservative 8 completed Not Available [facility] 03/29/2023 18:18:57 Influenza, high-dose, trivalent, PF 4 completed Kyra Domínguez, [employer] [address], [place], [address], [place] - [facility] 11/09/2023 09:24:01 Pneumococcal conjugate PCV20, polysaccharide [id number] conjugate, adjuvant, PF 4 completed Kyra Domínguez, EVENT MANAGEMENT CONSULTANT [address], [place], [address], [place] - [facility] 11/09/2023 09:24:01 Influenza, split virus, quadrivalent, preservative 9 completed Not Available [facility] 03/29/2023 18:18:57 Pneumococcal conjugate PCV 13 8 completed Not Available [facility] 02/25/2019 03:55:14 Influenza, split virus, quadrivalent, preservative 0 completed Not Available [facility] 03/29/2023 18:18:57 Influenza, split virus, quadrivalent, preservative 1 completed Not Available [facility] 03/29/2023 18:18:57 COVID-19 vaccine, vector-nr, rS-Ad26, PF, 0.5 mL 1 completed Not Available [facility]/29/2023 18:18:57 COVID-19 vaccine, vector-nr, rS-Ad26, PF, 0.5 mL 1 completed Not Available [facility]/29/2023 18:18:57 zoster recombinant 1 completed Not Available [facility]/29/2023 18:18:57 pneumococcal polysaccharide PPV23 1 completed Not Available [facility]/29/2023 18:18:57 influenza, unspecified formulation 3 completed Not Available [facility]/29/2023 18:18:57 pneumococcal polysaccharide PPV23 9 completed Not Available [facility] 02/25/2019 03:56:04 Influenza, recombinant, quadrivalent, PF 9 completed Not Available [facility] 03/29/2023 18:18:57 zoster recombinant 8 completed Not Available [facility] 03/29/2023 18:18:57 zoster recombinant 8 completed Not Available [facility] 03/29/2023 18:18:57 Influenza, high-dose, quadrivalent, PF 0 completed Not Available [facility] 03/29/2023 18:18:57 zoster live 3 completed Not Available [facility] 03/29/2023 18:18:57 Influenza, high-dose, trivalent, PF 8 completed Not Available [facility] 03/29/2023 18:18:57 Influenza, high-dose, trivalent, PF 5 completed Not Available [facility] 03/29/2023 18:18:57 Influenza, high-dose, trivalent, PF 6 completed Not Available [facility]/29/2023 18:18:57 Influenza, split virus, trivalent, PF 2 completed Not Available [facility]03/29/2023 18:18:57 Past Encounters Encounter ID Performer Location Encounter Start Date Encounter Closed Date Diagnosis/Indication Diagnosis SNOMED-CT Code Diagnosis ICD10 Code Diagnosis IMO Codes Diagnosis Note [id number] Daniel North, [address] [place] [address] 01/14/2016 09:04:10 01/14/2016 10:39:05 Mixed hyperlipidemia 313985582 E78.2 Type 2 leonard betes mellitus 50722703 E11.65 Essential hypertension 49641818 I10 Anxiety disorder F41.9 [id number] Daniel North [address] [place] [address] 2016 15:04:10 2016 16:12:20 Essential hypertension 87757578 I10 Mixed hyperlipidemia 267 427297 E78.2 Type 2 leonard betes mellitus 46462235 E11.65 Anxiety disorder F41.9 eKasper verified. [id number] Daniel North [address] [place] [address] 06/08/2016 10:14:21 06/12/2016 10:06:00 Acute maxillary sinusitis 96358116 J01.00 [id number] Daniel North [address] [place] [address] 08/03/2016 08:15:13 08/03/2016 09:56:22 Mixed hyperlipidemia 478669001 E78.2 LDL at goal. Type 2 leonard betes mellitus without complication 134814768 E11.9 A1C = 8.4% (8.3%). Overall, stable. Would like better control - Will increase metformin to 850mg. Discussed a whole foods plant based diet. Anxiety disorder F41.9 eKasper verified. Essential hypertension 04425514 I10 Clarified prescripti on - take Losartan 25mg daily [id number] Arian Nix MD [address] [place] [address] 10/09/2016 08:20:12 10/09/2016 09:03:55 Acute bronchitis 36311577 J20.9 Type 2 leonard betes mellitus without complication 506917418 E11.9 Body mass index 25-29 - overweight 686801378 Z68.25 [id number] Domo Hairston MD [address] [place] [address] 10/27/2016 09:38:31 10/27/2016 10:25:46 Mixed hyperlipidemia 767636690 E78.2 Type 2 leonard betes mellitus without complication 581426790 E11.9 Essential hypertension 60893335 I10 Administra tion of influenza vaccine 00823629 Z23 [id number] Domo Hairston MD [address] [place] [address] 01/18/2017 08:36:18 01/18/2017 09:23:16 Type 2 diabetes mellitus without complication 531728600 E11.9 Essential hypertension 72612613 I10 Anxiety disorder F41.9 Mixed hyperlipidemia 267 324423 E78.2 [id number] Domo Hairston MD [address] [place] [address] 04/19/2017 09:27:54 04/19/2017 11:01:15 Type 2 diabetes mellitus without complication 717605177 E11.9 She has some neuropathy in feet and gabapentin causes GI upset. I offered Lyrica, but she is worried about side effects and declined a prescripti on. Major depr essive disorder 194990332 F32.9 Anxiety 36901728 F41.9 Depressive disorder 3548 9007 F32.9 [id number] Domo Hairston MD [address] [place] [address] 07/20/2017 08:02:55 07/20/2017 09:02:51 Type 2 diabetes mellitus without complication 509063317 E11.9 Essential hypertension 74871855 I10 Anxiety disorder F41.9 Osteopenia 037455156 M85 .80 Osteoporosis 94146422 M8 1.0 [id number] Domo Hairston MD [address] [place] [address] 10/14/2017 16:17:11 10/14/2017 17:06:16 Type 2 diabetes mellitus without complication 366423014 E11.9 Adult heal th examination 005574346 Z00.00 Anxiety 71400865 F41.9 Anxiety disorder 8959339 06 F41.9 [id number] Domo Hairston MD [address] [place] [address] 10/21/2017 07:57:28 10/21/2017 09:44:55 Active or passive immunization 525976513 Z23 Adult heal th examination 687585495 Z00.00 Mixed hyperlipidemia 267 562670 E78.2 Type 2 leonard betes mellitus without complication 556072896 E11.9 Essential hypertension 39515061 I10 [id number] Domo Hairston MD [address] [place] [address] 01/13/2018 08:28:27 01/13/2018 10:00:49 Anxiety disorder 610593133 F41.9 Essential hypertension 37657060 I10 Spasm of back muscles 20 6484149 M62.595 [id number] Domo Hairston MD [address] [place] [address] 04/14/2018 08:29:24 04/14/2018 10:07:35 Type 2 diabetes mellitus without complication 973980355 E11.9 Essential hypertension 45927705 I10 Major depr essive disorder 478185611 F32.9 Mixed hyperlipidemia 267 898688 E78.2 [id number] Domo Hairston MD [address] [place] [address] 07/14/2018 07:48:38 07/14/2018 08:55:46 Type 2 diabetes mellitus without complication 933805197 E11.9 Essential hypertension 74343330 I10 Mixed hyperlipidemia 267 586227 E78.2 Neuropathy due to diabetes mellitus 646669910 E11.40 Pain of ri ght hip joint 2193575488 25593 M25.060 [id number] Domo Hairston MD [address] [place] [address] 10/04/2018 10:29:38 10/04/2018 11:33:30 Type 2 diabetes mellitus without complication 978357765 E11.9 Essential hypertension 89573565 I10 Neuropathy due to diabetes mellitus 003148183 E11.40 Body mass index 25-29 - overweight 521009995 Z68.26 Osteopenia 110220122 M85 .80 Anxiety disorder 6443186 06 F41.9 NA verified #[id number] Trinidad Skinner MD [address] [place] [address] 12/01/2018 10:09:19 12/01/2018 11:06:49 Neuropathy due to diabetes mellitus 030976780 E11.40 Mixed hyperlipidemia 267 844363 E78.2 Type 2 leonard betes mellitus without complication 102840535 E11.9 Anxiety 22770569 F41.9 Essential hypertension 57859314 I10 [place] inson-White pattern 77330441 I45.6 Osteopenia 418935543 M85 .80 Anxiety disorder 8238459 06 F41.9 Administra tion of pneumococcal vaccine 22089237 Z23 History of polyp of colon 364981160 Z86.010 Postmenopa usal osteoporosis 407408891 M81.0 [id number] Nick Carter MD [address] [place] [address] 01/19/2019 10:46:32 01/19/2019 11:40:47 Cough 70799364 R05 Rapid flu and Rapid strep are negative. Acute bronchitis 6079393 2 J20.9 Take Mucinex as prescribed . See us back or go to Er right away should get worse or develop any new symptoms or complaints . Follow up in one week. I also recommende d she should set up an appt and see her PCP Dr. Skinner for a complete physical, continued management of chronic diseases and also preventive care/healt h samantha richmond [id number] Trinidad Skinner MD [address] [place] [address] 02/06/2019 10:36:25 02/06/2019 11:45:35 Conjunctivitis 8893392 H10.9 Acute bronchitis 0040779 2 J20.9 [id number] Trinidad Skinner MD [address] [place] [address] 03/03/2019 08:52:06 03/03/2019 11:24:04 Neuropathy due to diabetes mellitus 929146637 E11.40 Mixed hyperlipidemia 267 636269 E78.2 Type 2 leonard betes mellitus without complication 608685460 E11.9 Anxiety 17636739 F41.9 Essential hypertension 13180124 I10 Anxiety disorder 06 F41.9 Screening for malignant neoplasm of colon 595768724 Z12.11 [id number] Trinidad Skinner MD [address] [place] [address] 03/30/2019 10:37:14 03/30/2019 11:24:46 Hyperkalemia 68272519 E87.5 Uncontroll ed type 2 diabetes mellitus 582491061 E11.65 [id number] Trinidad Skinner MD [address] [place] [address] 06/29/2019 08:14:45 06/29/2019 08:52:41 Anxiety 13328138 F41.9 Neuropathy due to diabetes mellitus 639605905 E11.40 Essential hypertension 15380475 I10 Mixed hyperlipidemia 267 019693 E78.2 Osteopenia 314207887 M85 .80 Uncontroll ed type 2 diabetes mellitus 300738210 E11.65 [place] inson-White pattern 58575381 I45.6 Muscle strain 73965686 T 14.8XXA Pain of sh oulder region 26079496 M25.325 [id number] Trinidad Skinner MD [address] [place] [address] 09/29/2019 10:17:44 09/29/2019 11:38:33 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 will let know when I can refer her Pruritic disorder 076914 002 L29.9 Administra tion of diphtheria, pertussis, and tetanus vaccine 099677536 Z23 [id number] Trinidad Skinner MD [address] [place] [address] 10/10/2019 08:47:15 10/10/2019 09:22:43 Hyperkalemia 16638444 E87.5 [id number] Trinidad Skinner MD [address] [place] [address] 03/08/2020 09:35:42 03/08/2020 10:10:53 Plantar fasciitis of right foot 5736479024 6881051 M72.2 Generalize d osteoarthritis 690310371 M15.9 [id number] Trinidad Skinner MD [address] [place] [address] 06/04/2020 10:09:30 06/04/2020 10:32:30 Osteopenia 266155857 M85.80 cont current meds Pruritic disorder 475618 002 L29.9 Pain of ri ght shoulder joint 9282993966 3394908 M25.511 Long-term current use of insulin 724788708 Z79.4 [id number] Trinidad Skinner MD [address] [place] [address] 10/01/2020 08:13:55 10/01/2020 10:11:02 Anomalous atrioventricular excitation 91656506 I45.6 follows with cardiology Anxiety 46581523 F41.9 controlled on sertraline Neuropathy due to diabetes mellitus 170613651 E11.40 stable Essential hypertension 76606572 I10 controlled med Mixed hyperlipidemia 267 419841 E78.2 cont statin tx Osteopenia 062329587 M85 .80 last DEXA 12/05/18 - mild improvemen t, recheck 3-4 yrs. cont alendronat e, Ca and vit D Uncontroll ed type 2 diabetes mellitus 291346595 E11.65 [place] inson-White pattern 63293199 I45.6 follows with cardiology History of polyp of colon 820982977 Z86.[address] to stay when she has the procedure done. will let know when I can refer her. defers today Immunization due 6809474 08 Z28.3 encouraged to get shingrix vaccine Pain of ri ght shoulder joint [id number] 4368068 M25.405 [id number] Trinidad Skinner MD [address] [place] [address] 02/11/2021 08:34:26 02/11/2021 09:41:34 Neuropathy due to diabetes mellitus 004045633 E11.40 stable Essential hypertension 77199857 I10 controlled med Mixed hyperlipidemia 267 994967 E78.2 cont statin tx Osteopenia 241574560 M85 .80 last DEXA 12/05/18 - mild improvemen t, recheck 3-4 yrs. cont alendronat e, Ca and vit D Uncontroll ed type 2 diabetes mellitus 924737936 E11.65 last A1c 10/01/20 8.3%. worsening control [place] inson-White pattern 17579663 I45.6 follows with cardiology History of polyp of colon 584326908 Z86.010 she thinks she has a place to stay when she has the procedure done Immunization due 5131046 08 Z28.3 encouraged to get shingrix vaccine Mixed anxi ety and depressive disorder 646526810 F41.8 controlled on meds Screening mammography 24 786528 Z12.31 scheduled 03/06/21 Long-term drug therapy 241241766 Z79.899 Body mass index 25-29 - overweight 015370427 Z68.26 Spinal edmundo nosis of lumbar region 41684741 M48.061 waiting for her pain doc to get his [employer] licence back. I will write for her HC in the short term [id number] Trinidad Skinner MD [address] [place] [address] 05/15/2021 08:15:32 05/15/2021 09:17:02 Neuropathy due to diabetes mellitus 110664163 E11.40 stable Essential hypertension 35937903 I10 controlled med Mixed hyperlipidemia 267 522573 E78.2 cont statin tx Osteopenia 968233092 M85 .80 last DEXA 12/05/18 - mild improvemen t, recheck 3-4 yrs. cont alendronat e, Ca and vit D Uncontroll ed type 2 diabetes mellitus 211813063 E11.65 last A1c 10/01/20 8.3%. worsening control [place] ins[place]-White pattern 55629089 I45.6 follows with cardiology History of polyp of colon 095843350 Z86.010 pt has been referred and she defers appt/CSP Immunization due 6599271 08 Z28.3 encouraged to get shingrix vaccine Mixed anxi ety and depressive disorder 883868154 F41.8 controlled on meds Screening mammography 24 001241 Z12.31 scheduled 03/06/21 Long-term drug therapy 651741791 Z79.899 Body mass index 25-29 - overweight 666114397 Z68.26 Spinal edmundo nosis of lumbar region 64028174 M48.061 waiting for her pain doc to get his [employer] licence back. I will write for her HC in the short term. will try to get her in with another clinic Spasm of back muscles 20 8522656 M62.193 [id number] Trinidad Skinner MD [address] [place] [address] 08/28/2021 09:10:30 08/28/2021 10:29:33 Neuropathy due to diabetes mellitus 196260559 E11.40 stable . foot exam 05/15/21 Essential hypertension 03767345 I10 controlled med Mixed hyperlipidemia 267 668363 E78.2 cont statin tx Osteopenia 195934977 M85 .80 last DEXA 12/05/18 - mild improvemen t, recheck 3-4 yrs. cont alendronat e, Ca and vit D Uncontroll ed type 2 diabetes mellitus 345799353 E11.65 last A1c 05/15/21 7.9%. Jardiance dose increased to 25 mg 05/16/21. [place] ins[place]-White pattern 08264058 I45.6 follows with cardiology History of polyp of colon 989005622 Z86.010 pt has been referred and she defers appt/CSP Mixed anxi ety and depressive disorder 587530375 F41.8 controlled on meds Screening mammography 24 089545 Z12.31 scheduled 03/06/21 Long-term drug therapy 420944130 Z79.899 Reviewed risk of care home use of controlled meds, including risk of addiction, and potential side effects. The patient voiced understand ing. Body mass index 25-29 - overweight 852929700 Z68.26 Spinal edmundo nosis of lumbar region 42192033 M48.061 she is going to pain clinic Immunization advised 310 919669 Z71.9 encouraged to get shingrix vaccine Vitamin D deficiency 347 94222 E55.9 Seasonal a llergic rhinitis 409884731 J30.2 she will call with what med she has been taking OTC [id number] Kyra Domínguez [address] [address] 09/12/2021 10:32:34 09/12/2021 11:19:47 Neuropathy due to diabetes mellitus 476183968 E11.40 dm packet given to ptdiscussi on on diet and portion control. Uncontroll ed type 2 diabetes mellitus 088488102 E11.65 Reviewed labs and medication with ptsuggest increasing metformin to 500mg po bid. pt wants to talk to her md prior to increasing med. [id number] Kyra Domínguez [address] [address] 09/19/2021 10:52:52 09/19/2021 11:42:15 Uncontrolled type 2 diabetes mellitus 081072119 E11.65 Acute maxi llary sinusitis 26779535 J01.00 [id number] Trinidad Skinner MD [address] [place] [address] 11/28/2021 08:57:29 11/28/2021 09:41:09 Neuropathy due to diabetes mellitus 830074223 E11.40 stable Essential hypertension 78878105 I10 controlled med Mixed hyperlipidemia 267 425081 E78.2 cont statin tx Osteopenia 592758721 M85 .80 last DEXA 09/10/21 - stable, taking alendronat e, Ca and vit D. will give her a drug holiday, recheck 2 yrs Uncontroll ed type 2 diabetes mellitus 347550528 E11.65 last A1c 08/28/21 8.3%. stopped Levemir and started Soliqua August, - she didn't do well on it so stopped [place] ins[place]-White pattern 96328149 I45.6 follows with cardiology History of polyp of colon 297556139 Z86.010 pt has been referred and she again defers appt/CSP Immunization advised 310 323625 Z71.9 encouraged to get shingrix vaccine Mixed anxi ety and depressive disorder 053191598 F41.8 controlled on meds Screening mammography 24 149208 Z12.31 scheduled 03/06/21 Long-term drug therapy 066364318 Z79.899 Reviewed use of controlled substances ; risk of addiction or tolerance, and possible side effects, lou constipati on and sedation. Patient voiced understand ing. Advised to keep med locked up at home Body mass index 25-29 - overweight 225760510 Z68.26 Spinal edmundo nosis of lumbar region 00705288 M48.061 she is going to pain clinic Seasonal a llergic rhinitis 123865258 J30.2 she will call with what med she has been taking OTC Spasm of back muscles 20 1019363 M62.830 Administra tion of influenza vaccine 96959713 Z23 Body mass index 20-24 - normal 314677400 Z68.24 [id number] Trinidad Skinner MD [address] [place] [address] 12/19/2021 09:29:36 12/19/2021 09:52:17 Acute urinary tract infection 478102801 N39.0 [id number] Anny Tran APRN [address] [place] [address] 01/16/2022 10:16:41 01/16/2022 11:11:12 Right side sciatica 1540706211 42288 M54.31 consider topical icy hotpt has RX for muscle spasmscons ider films if recurrent Essential hypertension 07146721 I10 Neuropathy due to diabetes mellitus 871515763 E11.40 [id number] Anny Tran APRN [address] [place] [address] 01/22/2022 11:24:45 01/22/2022 11:50:44 Right side sciatica 5582570365 92172 M54.31 pt has had two MRI's on lumbar spine per pain management /[facility]. Neuropathy due to diabetes mellitus 749830747 E11.40 Uncontroll ed type 2 diabetes mellitus 114256368 E11.65 [id number] Trinidad Skinner MD [address] [place] [address] 03/02/2022 09:44:36 03/02/2022 11:03:10 Neuropathy due to diabetes mellitus 890673215 E11.40 stable Essential hypertension 51920073 I10 controlled med Mixed hyperlipidemia 267 461561 E78.2 taking lovastatin 10 mg qd Osteopenia 218590971 M85 .80 last DEXA 09/10/21 - stable. took alendronat e from 09/2013-2021; now on drug holiday. now taking Ca and vit D. recheck 2 yrs Uncontroll ed type 2 diabetes mellitus 410451859 E11.65 last A1c 08/28/21 8.3%. [place] ins[place]-White pattern 00122996 I45.6 follows with cardiology History of polyp of colon 669371343 Z86.010 pt has been referred and she again defers appt/CSP Immunization advised 310 592913 Z71.9 encouraged to get shingrix vaccine Mixed anxi ety and depressive disorder 235912608 F41.8 controlled on meds Long-term drug therapy 341412145 Z79.899 Reviewed use of controlled substances ; risk of addiction or tolerance, and possible side effects, lou constipati on and sedation. Patient voiced understand ing. Advised to keep med locked up at home Body mass index 25-29 - overweight 345147125 Z68.25 Spinal edmundo nosis of lumbar region 27049293 M48.061 she is going to pain clinic. prescribed gabapentin and hydrocodon e/APAP Seasonal a llergic rhinitis 544379472 J30.2 she will call with what med she has been taking OTC Right side sciatica 3202 724608 75492 M54.31 [id number] Trinidad Skinner MD [address] [place] [address] 06/01/2022 09:34:07 06/01/2022 10:32:53 Neuropathy due to diabetes mellitus 659948993 E11.40 stable. foot exam 03/02/22 Essential hypertension 57611964 I10 controlled on amlodipine 10 mg qd, candesarta n 8 mg qd, sotalol 80 mg 2 tabs bid Mixed hyperlipidemia 267 933515 E78.2 taking lovastatin 10 mg qd Osteopenia 282652062 M85 .80 last DEXA 09/10/21 - stable. took alendronat e from 09/2013-2021; now on drug holiday. now taking Ca and vit D. recheck 2 yrs Uncontroll ed type 2 diabetes mellitus 784678025 E11.65 last A1c 03/02/22 7.7%. improved [place] ins[place]-White pattern 24770210 I45.6 follows with cardiology History of polyp of colon 439166212 Z86.010 pt has been referred and she again defers appt/CSP Immunization advised 310 358028 Z71.9 encouraged to get 2nd shingrix vaccine - got at [facility] Mixed anxi ety and depressive disorder 259342485 F41.8 controlled on sertraline 100 mg qd and clonazepam 1 mg bid prn (on the same dose since at least 2005) Long-term drug therapy 407933227 Z79.899 Reviewed use of controlled substances ; risk of addiction or tolerance, and possible side effects, lou constipati on and sedation. Patient voiced understand ing. Advised to keep med locked up at home Body mass index 25-29 - overweight 290210559 Z68.25 Spinal edmundo nosis of lumbar region 10639529 M48.061 she is going to pain clinic. prescribed gabapentin and hydrocodon e/APAP Seasonal a llergic rhinitis 908452716 J30.2 she can take coricidin prn for allergys Spasm of back muscles 20 6763367 M62.830 Urine looks dark 6070932 7 R82.041 [id number] Trinidad Skinner MD [address] [place] [address] 09/21/2022 10:02:39 09/21/2022 11:10:31 Neuropathy due to diabetes mellitus 052623518 E11.40 stable. Essential hypertension 88246150 I10 controlled on amlodipine 10 mg qd, candesarta n 8 mg qd, sotalol 80 mg 2 tabs bid Mixed hyperlipidemia 267 374735 E78.2 taking lovastatin 10 mg qd Osteopenia 014766664 M85 .80 last DEXA 09/10/21 - stable. took alendronat e from 09/2013-2021; now on drug holiday. now taking Ca and vit D. recheck 2 yrs [place] ins[place]-White pattern 51890564 I45.6 follows with cardiology History of polyp of colon 296061240 Z86.010 pt has been referred and she again defers appt/CSP Immunization advised 310 604470 Z71.9 encouraged to get 2nd shingrix vaccine - got at [facility] Mixed anxi ety and depressive disorder 599452012 F41.8 controlled on sertraline 100 mg qd and clonazepam 1 mg bid prn (on the same dose since at least 2005) Long-term drug therapy 831646384 Z79.899 Reviewed use of controlled substances ; risk of addiction or tolerance, and possible side effects, lou constipati on and sedation. Patient voiced understand ing. Advised to keep med locked up at home Body mass index 25-29 - overweight 479640196 Z68.25 Spinal edmundo nosis of lumbar region 68307942 M48.061 she is going to pain clinic. prescribed gabapentin and hydrocodon e/APAP Seasonal a llergic rhinitis 694355214 J30.2 she can take coricidin prn for allergys Spasm of back muscles 20 4725465 M62.830 takes tizanidine 4 mg prn at Well contr olled type 2 diabetes mellitus 490162308 E11.9 last A1c 06/01/22, 7.1%. improved Adult heal th examination 235591328 Z00.00 Depression screening 171 011024 Z13.31 Examinatio n of blood pressure 418029905 Z01.30 Diet education 44367168 Z71.3 Counseling 055889642 Z71 .82 Exercise counseling . Patient encouraged to exercise 30 minutes 5 days a week. At [facility] risk for falls 644818605 Z91.81 STEADI FAST screening score of __4___. Advance care planning 71 9965538 Z71.89 packet given to patient Body mass index 20-24 - normal 710443931 Z68.24 Dysuria 67047609 R30.0 [id number] Trinidad Skinner MD [address] [place] [address] 12/22/2022 09:49:35 12/22/2022 10:55:56 Neuropathy due to diabetes mellitus 645118250 E11.40 stable. Essential hypertension 49545314 I10 controlled on amlodipine 10 mg qd, candesarta n 8 mg qd, sotalol 80 mg 2 tabs bid Mixed hyperlipidemia 267 514744 E78.2 taking lovastatin 10 mg qd Osteopenia 020864977 M85 .80 last DEXA 09/10/21 - stable. took alendronat e from 09/2013-2021; started a drug holiday, bu she is still taking it. also taking Ca and vit D. recheck 2 yrs Well contr olled type 2 diabetes mellitus 327379041 E11.9 last A1c 09/21/22, 7.2%. [place] inson-White pattern 29561569 I45.6 follows with cardiology History of polyp of colon 760418930 Z86.010 pt has been referred and she again defers appt/CSP Immunization advised 310 879335 Z71.9 encouraged to get 2nd shingrix vaccine - got at [facility] Mixed anxi ety and depressive disorder 385740837 F41.8 controlled on sertraline 100 mg qd and clonazepam 1 mg bid prn (on the same dose since at least 2005) Long-term drug therapy 572730008 Z79.899 Reviewed use of controlled substances ; risk of addiction or tolerance, and possible side effects, lou constipati on and sedation. Patient voiced understand ing. Advised to keep med locked up at home Body mass index 25-29 - overweight 363113857 Z68.25 Spinal edmundo nosis of lumbar region 05860717 M48.061 she is going to pain clinic. prescribed gabapentin and hydrocodon e/APAP Seasonal a llergic rhinitis 338448694 J30.2 she can take coricidin prn for allergies Spasm of back muscles 20 2938427 M62.830 takes tizanidine 4 mg prn at hs [id number] Trinidad Skinner MD [address] [place] [address] 02/04/2023 13:57:27 02/04/2023 15:09:49 Spinal stenosis of lumbar region 44637148 M48.[address] Bear Scott - pain management . but he left. since then she has been getting pain meds from a [employer] in [place]. prescribed gabapentin and hydrocodon e/APAP . he referred her to pain management and she has an appt next week Long-term drug therapy 078536349 Z79.149 Reviewed use of controlled substances ; risk of addiction or tolerance, and possible side effects, lou constipati on and sedation. Patient voiced understand ing. Advised to keep med locked up at home!!!!! She promises she will Urine looks dark 6616859 7 R82.899 [id number] Kyra Domínguez [address] [address] 02/09/2023 09:37:08 02/09/2023 10:44:20 Uncontrolled type 2 diabetes mellitus 770294730 E11.65 will cut metformin to 250mg and pt may start to wean back insulinif glucose adv is under 150 cut back 10 units a weekif glucose is over 150 call office for instructio ns do not cut back insulin if glucose is over 150recheck a1c next monthkeep glucose log and bring to appointmen t Essential hypertension 31037346 I10 Neuropathy due to diabetes mellitus 729359349 E11.40 dm packet given to ptdiscussi on on diet and portion control. Mixed anxi ety and depressive disorder 137503015 F41.8 Mixed hyperlipidemia 267 082466 E78.2 Body mass index 20-24 - normal 812195887 Z68.22 22.5 Proteinuria 47846160 R80 .9 protein clear in dipstick will send for microalbum in/cre ratio and cx [id number] Kyra Domínguez [address] [address] 02/25/2023 13:40:51 02/25/2023 14:23:26 Body mass index 20-24 - normal 705275850 Z68.22 22.1 Uncontroll ed type 2 diabetes mellitus 319949336 E11.65 labs next appointmen t [id number] Kyra Domínguez [address] [address] 03/11/2023 13:14:19 03/11/2023 13:44:11 Mixed anxiety and depressive disorder 515142775 F41.8 long discussion with pt about meds, pt states she take clonazepam for seizures,a nxiety and sleep. I explained she will need to be tapered off clonazepam and not stopped suddenly but because she takes it for seizures that makes the tapering alot more risky and she should see a doctor on the best course and the safest way to wean meds. I explained that it would be best for her to have a doctor look at everything and develop a plan for pt Spinal edmundo nosis of lumbar region 17666473 M48.903 [id number] Kyra Domínguez [address] [address] 03/16/2023 15:07:19 03/16/2023 15:39:31 Acute maxillary sinusitis 85618829 J01.00 [id number] PARI Garcia [facility] [address] [place] [address] 03/17/2023 13:23:30 03/17/2023 15:18:27 Mixed anxiety and depressive disorder 009444481 F41.8 exac- pt does not want to change her zoloft Diarrhea 38966478 R19.7 -New, on and off [id number] Kyra Domínguez [address] [address] 03/18/2023 09:38:03 03/18/2023 10:29:06 Anxiety 75975350 F41.9 discussed with pt burspar and its use. pt thanked me and left [id number] Ame Bhatia [employer] [address] [place] [address] 03/23/2023 13:56:44 03/23/2023 14:36:57 Patient new to provider [id number] 92515 Z76.89 Mixed anxi ety and depressive disorder 268238211 F41.8 Increase buspirone to 10mg - discussed it takes longer to see effects and advised she hasn't even been taking for 1 week at this point. Will still increase since she was previously taking clonazepam and that was stopped per pain clinic - F/U 1 month. Insomnia 161402122 G47.0 0 Start trazodone - F/U 1 month; advised to take only 1 tablet at bedtime for at least 3 days, then if needs 2 can take 2 together prior to bedtime. Discussed possible side effects of medication . [id number] Kyra Domínguez [address] [address] 04/02/2023 08:01:07 04/02/2023 08:52:18 Essential hypertension 82237027 I10 Mixed hyperlipidemia 267 171421 E78.2 Uncontroll ed type 2 diabetes mellitus 322886206 E11.65 [place] inson-White pattern 07456575 I45.6 Chronic back pain 393541 002 G89.29 explained that she will need to contact the MD that prescribed med. pt states if I can't give them to her she will not call that MD back because he will tell her its not his fault she dropped them in a puddle. , Pt also states I have a appointmen t with dr Fonseca in [place] first week of april for pain I also explained to pt that this is drug seeking behaviors and if they did not stop I was going to report her. [id number] Kyra Domínguez [address] [address] 04/19/2023 10:56:32 04/19/2023 11:21:30 Acute hyperkalemia 2306376 E87.5 Infestatio n by bed bug 22849246 B88.8 advised to let land lord know and proper ways to clean [id number] Kyra Domínguez [address] [address] 05/04/2023 14:53:06 05/04/2023 15:59:09 Chronic back pain 242087725 G89.29 discussed with pt about her drug seeking behaviors. she received 2 scripts of norco within 6 days for 120 tabs. Pt today asking for norco. due to drug seek behaviors will contact sheriff Quan Conde to kurtis richmond notified from office (mindy) I had to report to [facility]- called disbatch and report made.at this time I will not give pt any control substance. referral to a different pain clinic was made. encouraged tylenol or motrin and heat/ice [id number] Kyra Domínguez APRN [address] [address] 05/11/2023 09:27:40 05/11/2023 10:52:40 Mixed anxiety and depressive disorder 518538014 F41.8 will start taper due to drug seeking behaviors, will only give 1 weeks at a time to start and perform uds freq. discussed with Dr Miller. Next script will cut to .5mg three times a day for 2 weeks.long discussion with pt about meds, pt states she take clonazepam for seizures,a nxiety and sleep. I explained she will need to be tapered off clonazepam and not stopped suddenly but because she takes it for seizures that makes the tapering alot more riskyadvis ed to not take trazodone while on clonazepam . Long-term current use of benzodiazepine 2714940250 4212270 Z79.899 confirm not benzo, thc, tca and morphine positive in uds in office- will start taper [id number] Kyra Domínguez APRN [address] [address] 05/14/2023 13:03:52 05/14/2023 14:21:21 Abdominal pain 48003594 R10.9 ambulance calledekg- wpwvitals obtainediv [facility]- at bedside monitoring ptreport given to wilton connors Epigastric pain 00220911 R10.13 [id number] Kyra Domínguez APRN [address] [address] 05/18/2023 08:08:49 05/18/2023 08:54:05 Generalized anxiety disorder 80311202 F41.1 discussed with pt about the proper medication discussed that due to her drug seeking behaviors and uds results. she will be weaned off all controlled substance or sedating meds. when explained that I was doing this pt states well I guess I'll just buy it off the streets I again explained this is why I was taking her off all controlled substances . Abdominal pain 04610863 R10.9 long discussion with pt that the referral will be sent to gi and they will contact her for a appointmen [address] weight loss 933635761 R63.4 refer for colonoscop y. [id number] Kyra Domínguez APRN [address] [address] 05/28/2023 14:07:45 05/28/2023 14:45:50 Mixed anxiety and depressive disorder 346682028 F41.8 will start taper due to drug seeking behaviors, will only give 2 weeks at a time to start and perform uds freq. Next script will cut to .5mg three times a day for 2 weeks.long discussion with pt about meds, pt states she take clonazepam for seizures,a nxiety and sleep. I explained she will need to be tapered off clonazepam and not stopped suddenly [id number] Kyra SON Domínguez [address] [address] 06/07/2023 14:09:42 06/07/2023 15:03:31 Gastroesophageal reflux disease without esophagitis 945588763 K21.9 Anxiety 74139054 F41.9 Chronic back pain 945971 002 G89.29 discussed with pt about her drug seeking behaviors. I again explained to pt she can not be on opiates and benzo at the same time. she then states I will stop taking the clonazepam now write my hydrocodon e , I explained to pt that I was tapering her meds and I would not start a new controlled substance due to her seeking behaviors and demanding demands. I am continuing the taper of meds and only 7 days at a time. per na she had 2 week script filled 05/27 but pt states she doesn't want them anymore. 5 mins later she is telling the check out that she will continue with her clonazepam and wants 90 script sent in. I again reminded pt that she is on taper. will discuss with dr miller once hes back from vacation [id number] Jessica Mandel, [address] [place] [address] 06/14/2023 13:04:20 06/14/2023 13:52:01 Gastroesophageal reflux disease without esophagitis 283150586 K21.9 Refilled omeprazole and started famotidine BID. She was given the phone number to Dr. Pierce's office to contact them regarding her referral for a colonoscop y. Will add another order for EGD, if this is indicated. [id number] Kyra Domínguez [address] [address] 06/21/2023 14:58:50 06/21/2023 15:26:19 Mixed anxiety and depressive disorder 648190384 F41.8 continue taper due to drug seeking behaviors, will cut to .5mg three times a day for 7 days.long discussion with pt about meds, pt states she take clonazepam for seizures,a nxiety and sleep. Gastroesop hageal reflux disease without esophagitis 199672786 K21.9 Spasm of back muscles 20 4332787 M62.830 Epigastric pain 48806276 R10.13 [id number] Kyra Domínguez [address] [address] 07/02/2023 14:36:07 07/02/2023 15:05:35 Unexplained weight loss 789958556 R63.4 Abdominal pain 64069098 R10.9 long discussion with pt that the referral will be sent to gi and they will contact her for a appointmen t. [id number] Kyra Domínguez [address] [address] 07/06/2023 15:33:16 07/06/2023 16:07:40 Gastroesophageal reflux disease without esophagitis 014146092 K21.9 stop pepcid and omeprazole - trial of nexium- referral placed for gi Mixed anxi ety and depressive disorder 921564404 F41.8 continue taper due to drug seeking behaviors, will cut to .5mg twice a day for 7 days.long discussion with pt about meds, [id number] Kyra Domínguez [address] [place] [address] 07/13/2023 10:21:26 07/13/2023 10:58:50 Gastroesophageal reflux disease without esophagitis 662942392 K21.9 referral placed for gi Mixed anxi ety and depressive disorder 281600842 F41.8 continue taper due to drug seeking behaviors, will cut to .5mg once a day for 7 days.long discussion with pt about meds, will continue 7 days of once day until seen by the medical center 07/18Pt compliant with plan of careKasper reviewedme dication compliance discussedL ast uds: 4Control substance agreement on file [id number] Kyra Domínguez [address] [address] 07/20/2023 13:43:56 07/20/2023 14:16:08 Mixed anxiety and depressive disorder 562236465 F41.8 continue taper due to drug seeking behaviors, will cut to .5mg once every other day for 7 days.long discussion with pt about meds,Pt compliant with plan of careKasper reviewedme dication compliance discussedL ast uds: 4Control substance agreement on file Abdominal pain 08707631 R10.9 advised to stop alendronat e to see if this is cause for gi upset [id number] Kyra Domínguez [address] [address] 08/06/2023 14:09:43 08/06/2023 15:17:10 CT of abdomen abnormal [id number] 5340396 R93.5 long discussion with pt on the importance of obtaining more imaging to get answers so she can be referred. pt states she does not have a phone at this time. she will come in wednesday to see if ct is approved.w aiting on ct with contrast to be approved.i f any new or worsening of symptoms go to ed [facility] [id number] Kyra Domínguez [address] [address] 09/17/2023 14:29:16 09/17/2023 15:31:10 Insomnia 335972267 G47.00 [id number] Kyra Domínguez APRN [address] [address] 10/26/2023 13:30:55 10/26/2023 14:23:49 Osteopenia 453313460 M85.80 stop alendronat e- restart injections in 6 weeks Essential hypertension 43243436 I10 Generalize d anxiety disorder 25926576 F41.1 discussed with pt about the proper medication Gastroesop hageal reflux disease without esophagitis 433714645 K21.9 stop meloxicam Uncontroll ed type 2 diabetes mellitus 616919104 E11.65 Mixed hyperlipidemia 267 037955 E78.2 Sleep disorder 08256199 G47.9 Mixed anxi ety and depressive disorder 582968267 F41.8 Spasm of back muscles 20 1122322 M62.830 Acute urin conner tract infection 703173097 N39.0 increase fluidscran moreno juicewipe front to backvoid after intercours todd not hold urineantib iotics as orderedcot ton underwearr eturn if symptoms worsen or do not improve Memory impairment 103750 006 R41.3 assessment done- see chart.I instructed pt to stop a couple of meds and wrote them down on post it note and gave to pt. she talked for short period, with post it note in hand and balled it up to throw away. I again reminded pt that on the post it not was meds she was to stop [id number] Kyra Domínguez APRN [address] [address] 11/08/2023 13:46:06 11/08/2023 14:27:56 Influenza vaccine needed 2572755168 106 Z23 Body mass index less than 20 562342970 Z68.1 16.8 Underweight 966971865 R6 3.6 Administra tion of pneumococcal vaccine 58586527 Z23 Unable to manage medication 778428142 Z91.148 Total self -care deficit 63573566 Z73.89 reaching back out to insurance to see if they can help with resources Difficulty performing personal care activity 677726700 Z73.89 Difficulty performing bathing activity 287901578 Z73.89 [id number] Eugonda Fryman, [address] [address] 11/25/2023 13:55:19 11/25/2023 14:50:30 Spasm of back muscles 426199085 M62.830 Essential hypertension 53686132 I10 Mixed anxi ety and depressive disorder 257923330 F41.8 Insomnia 931701522 G47.0 0 Nausea 045155359 R11.0 Gastroesop hageal reflux disease without esophagitis 831275714 K21.9 stop meloxicam Uncontroll ed type 2 diabetes mellitus 919948140 E11.65 labscontin ue diet and exerciseco ntinue meds Spinal edmundo nosis of lumbar region 66240962 M48.061 Sleep disorder 61736378 G47.9 Mixed hyperlipidemia 267 137973 E78.2 labs Generalize d anxiety disorder 52812343 F41.1 discussed with pt about the proper medication Abdominal pain 65424888 R10.9 advised to stop alendronat e to see if this is cause for gi upset Microscopic hematuria 19 4611614 R31.29 increase fluidscran moreno juicewipe front to backvoid after intercours todd not hold urineantib iotics as orderedcot ton underwearr eturn if symptoms worsen or do not improvewai t cx results [id number] Kyra Domínguez [address] [address] 12/16/2023 13:47:10 12/16/2023 14:40:15 Acute confusion 750344860 R41.0 Hyperkalemia 52277019 E8 7.5 [id number] Kyra Domínguez [address] [address] 01/03/2024 13:41:24 01/03/2024 14:53:47 Insomnia 277144227 G47.00 Gastroesop hageal reflux disease without esophagitis 262352398 K21.9 stop meloxicam Spasm of back muscles 20 5167456 M62.830 Adult heal th examination 335078416 Z00.00 Depression screening 171 590399 Z13.31 A depression screening was completed via a standardiz ed screening tool. 5 minutes were spent discussing depression screening results and risk factors. Examinatio n of blood pressure 539390534 Z01.30 Diet education 43704548 Z71.3 Counseling 969131253 Z71 .82 Exercise counseling . Patient encouraged to exercise 30 minutes 5 days a [address] [facility] ed risk for falls 079384275 Z91.81 STEADI FAST screening score of . Advance care planning 71 5242122 Z71.89 Visual hallucinations 64 567765 R44.1 Exercises education, guidance, and counseling 700406242 Z71.82 [id number] Kyra Domínguez [address] [address] 04/06/2024 11:03:56 04/06/2024 12:18:20 Mixed hyperlipidemia 033954178 E78.2 labs Gastroesop hageal reflux disease without esophagitis 641173253 K21.9 stop meloxicam Insomnia 525172535 G47.0 0 Spasm of back muscles 20 4729168 M62.830 Uncontroll ed type 2 diabetes mellitus 148015015 E11.65 labscontin ue diet and exerciseco ntinue meds Memory impairment 359897 006 R41.3 pt is refusing all work up. states she just wants a pill. long discussion with pt about weight loss and memory issues and she states im ok, I dont want to see anyone. I will make referral to hospice to see if they have anything to offer and send referral to health department community development technician to see if they can offer any help to pt. pt has no family that is involved with her care. aps has been contacted see pt note.. [id number] Kyra Domínguez [address] [address] 05/22/2024 12:51:24 05/22/2024 13:38:11 Insomnia 925735181 G47.00 Hyperkalemia 71900110 E8 7.5 9805 labs Hyperglyce ricardo due to type 2 diabetes mellitus 3928129420 15881 E11.65 Z79.4 08204608 labs Unintentio nal weight loss 448436697 R63.4 490271 labs- follow up with gi Spinal edmundo nosis of lumbar region 84660119 M48.061 due to pts history of misuse and forgetfuln ess at this time I do not feel comfortabl e increasing muscle relaxer dose.[facility] pt has a script for norco there waiting for her to pick it up- pt informed Hiatal hernia 13034158 K 44.9 9218 follow up with gi as scheduled Gastroesop hageal reflux disease without esophagitis 112783945 K21.9 stop meloxicam Healthcare knowledge finding 977072287 Z55.8 [id number] will make referral to pp community development technician to make sure pt is aware of all available resources. aps report has been made from health department . waiting to hear form them. our report made last yr was not picked up for them to investigat e. pt has very poor memory and judgement I feel it is unsafe for pt to live alone.. see notes stove being left on and rememberin g to eat and take meds correctly. again community health worker referral placed.spo ke with Dr Miller- reported to belt measurer- I feel pt is not safe to live alone and care for self Memory impairment 186382 006 R41.3 33819 pt has no family that is involved with her care. aps has been contacted see pt note.. [id number] Kyra Domínguez APRN [address] [address] 08/08/2024 15:56:11 08/08/2024 16:59:18 Acute urinary tract infection 803502742 N39.0 195636 increase fluidscran moreno juicewipe front to backvoid after intercours todd not hold urineantib iotics as orderedcot ton underwearr eturn if symptoms worsen or do not improve Gastroesop hageal reflux disease without esophagitis 921833579 K21.9 989100 [id number] Kyra Domínguez APRN [address] [address] 09/12/2024 13:37:57 09/12/2024 15:43:05 Bilateral cramp of muscle of lower limbs 4186276930 4937762 R25.2 37310594 labs Uncontroll ed type 2 diabetes mellitus 963731572 E11.65 labscontin ue diet and exerciseco ntinue meds 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 Disease 96866226 K46.[address] another referral per pt request Health Concerns Section Related Observation LastModified by Organization Detai ls LastModified Time None Recorded Concern Status LastModified by Organization Details LastModified Time None Recorded Advance Directives Directive N: Payers Insurance Date Sequence Insurance Name Policy Number Policy Llanos Covered Member ID Llanos Member ID Guarantor Name 03/17/2017 2 UNSPECIFIED REMIT PAYOR Isatu Raymondgh 12/05/2024 3 [place] Isatu Deleon [id number] Isatu Raymondgh 12/05/2024 2 [place] Isatu Deleon [id number] Isatu Raymondgh 12/05/2024 [employer] - MEDICARE A-[place] - [facility] (MEDICARE) Isatu Deleon [id number] Isatu Raymondgh 12/05/2024 2 [employer] ([place]ICA[place] Isatu Deleon [id number] Isatu Raymondgh 12/05/2024 2 [facility] Isatu Deleon [id number] Isatu Raymondgh 12/05/2024 1 [employer] (MEDICARE REPLACEMENT/AD VANTAGE - HMO) Isatu Deleon [id number] Isatu Raymondgh 12/05/2024 1 [place]MED[place]/AD [place]ANTAGE - HMO) [id number] Isatu Deleon [id number] Isatu Raymondgh 12/05/2024 2 [place] Isatu Deleon [id number] Isatu Raymondgh 12/05/2024 1 [employer] (MEDICARE REPLACEMENT/AD VANTAGE - PPO) Isatu Deleon [id number] Isatu Raymondgh 12/05/2024 1 [employer] (MEDICARE REPLACEMENT/AD VANTAGE - HMO) Isatu Deleon [id number] Isatu Deleon 12/05/2024 1 [employer] (MEDICARE REPLACEMENT/AD VANTAGE - PPO) Isatu Briseno [facility] [id number] Isatu Briseno [facility] 12/05/2024 [employer] (MEDICARE REPLACEMENT/AD VANTAGE - PPO) Isatu Raymondgh [id number] Isatu Briseno [facility] 12/05/2024 1 [employer] - [employer]ICECARE (PPO) Isatu Raymondgh [id number] Isatu Briseno [facility] 12/05/2024 1 [facility] Isatu Briseno [facility] [id number] Isatu Briseno [facility] 12/05/2024 [place] [facility] [employer] (MEDICAID) Isatu Raymondgh [id number] Isatu Raymondgh Notes Date Note Type Note Provider Name and Address Organization Details Recorded Time 4 text/html Medicare Annual Wellness VisitReported by PatientSocial/Behavioral HistoryFor diet and nutrition, patient reportsdiscussed vitamin and supplement useanddiscussed diet improvement. For fracture risk, patient reportsno history of fractures. For physical activity, patient reportsdiscussed weightbearing activitiesanddiscussed exercise habits.Mental Status:For depression risk, patient reportssignificant changes in weight,sleep disturbances or insomnia, andloss of energy. For concentration and memory, patient reportsmemory lapses or lossbut reportsno decreased concentrating abilityanddoes not forget words. For orientation, patient reportsno disorientation to time,no disorientation to date, andno disorientation to place. For speech/motor difficulties, patient reportsno speech difficulties,no difficulty expressing formulated concepts, andno difficulty with fine manipulative tasks.Functional AbilityFor instrumental activities of daily living, patient reportsunable to do house work without assistance,unable to grocery shop without assistance, andunable to to prepare meals without assistance. For hearing, patient reportsno loss of hearing. For vision, patient reportsno vision problems. For activities of daily living, patient reportsable to bathe with limited or no assistance,able to contol urination and bowels,able to dress with limited or no assistance,able to feed self with limited or no assistance,able to get out of chair or bed with limited or no assistance,able to groom with limited or no assistance, andable to toilet with limited or no assistance. For falls risk assessment, patient reportsno frequent falls while walking,no fall in the past year,no fall since last visit, andno dizziness/vertigo. For home safety, patient reportsno unsafe benitez hazzards,no unsafe stairs,no unsafe gas appliances,working smoke/co detectors, andgood lighting in the home. For current level of pain, patient reportsno pain: 0/10. 78 yr old female presents for refills on some of her medications.She states she is hallucinating at night and knows that its not real per pt. pt states she would like to see someone for them. pt states she will think she seen something but when she looks again its not there. pt states home health in 3 days a week to help. Kyra Domínguez APRN [address], [place], [address], [facility] - [facility] 01/03/2024 15:53:23 5 text/html ROS as noted in the HPI 78 year old female who presents to the office today for a follow up ondiabetes, insomnia, hypertension, gerd and cholesterolpatient states she is having a lot of problems with her memory and needs medicine Kyra Domínguez APRN [address], [place], [address], [facility] - [facility] 04/06/2024 14:24:59 5 text/html ROS as noted in the HPI 79 yr old female presents for review of blood work results and repeat labs. she also is requesting a higher dose of tizanidine and omeprazole. Patient is unsure of medications. She has lutcphbprwcr-anq-[id number] on her med list but doesn't know where it came from. She is also stating she had to break her hydrocodone in half to make them last and is requesting a prescription for them. She still sees a pain doctor but appointment is June 08. pt states she sees a gi md in [place] june 08 for her hernia and she believes the hernia is causing her not to eat well. the health department community development technician has been visiting with pt - see notes.. pt states she only eats what the senior citizen send for food and she will cook herself a egg every now and then. Kyra Domínguez APRN [address], [place], [address], [place] - [facility] 05/22/2024 14:38:39 5 text/html 79 year old female who presents to the office today with concerns of burning with urination, freq,urgency and flank painalso needs dose increase on gerd med. Kyra Domínguez, EVENT MANAGEMENT CONSULTANT [address], [place], [address], [place] - [facility] 08/08/2024 17:02:47 5 text/html 79 year old female who presents to the office today with concerns of hernia pain- constantalso has concerns of high blood pressure- states runs about 80/40 when she takes it at her house.Patient asked if there was anyone around who sales pain or hernia medication. I asked her what type of pain medication and she said hydrocodone, states she does not know what her hernia medication is called. I told her pharmacy's don't just sale hydrocodone, that it had to be prescribed. She then asked who would prescribe it to her. I told her she would have to go to a pain clinic, she states she couldn't go that far because of hernia and that it would have to be delivered.- based on na still seeing pain clinicpt request to have a new referral [place]pt c/o of leg cramps Kyra Domínguez, EVENT MANAGEMENT CONSULTANT [address], [place], [address], [place] - [facility] 09/12/2024 15:02:51 OBGyn Episode No OBEpisode recorded.
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
--- OUTSIDE RECORDS SUMMARY | 2024-12-13 12:10 | XMS_ITS | Data Portability ---
Author Organization [facility] - [facility] STEFF Sam ADMIN Address [address] [place] [id number] Care Team Providers Care Aircraft Instrument Repairer Name Role Phone DENISE MARIA Primary Care Provider [phone] DENISE MARIA Primary Care Provider Assessment Encounter Date Assessment Date Assessment LastModified by Organization Details LastModified Time 11/04/2023 11/04/2023 Ms. Deleon was referred by Dr. Skinner for management of lumbar radiculopathy. The patient is diabetic, anti-coagulation, and nicotine dependence. The patient reports osteopenia. Images reviewed 11/04/2023 Xrays: Xrays: lumbarMRI: multilevel DDD with areas of foraminal narrowing; left paracentral superiorly extruded at L5-S1 causing left S1 nerve root impingement and mild bilateral neural foraminal narrowing. Plan 11/04/2023 Today, I discussed with the patient about my current findings based on their history and/or physical exam. They have multiple pain generators, however I will treat their pain in a stepwise plan as outlined below. 1. #Lumbar Radicular Syndrome, Chronic worsening # Lumbar spinal stenosis # DDD -At the last visit, decreased Hydrocodone APAP 5-325mg Q12 for 1 month #60 and was previously taking Hydrocodone APAP 7.5-325mg Q12 (last filled 03/31/23). - patient was prescribed medication from another Pain practice ([facility]) October 06, 2023. Her pain contract was signed 03/29/[address] Garrett. On 10/06/2023, the patient filled a prescription with a provider from [facility] name Ned Caceres who wrote her hydrocodone /APAP 7.5/325 Q 8 hours - Per the opioid prescription contract, she has broken the contract and at this point she will be dismissed from the practice. I will give her a tapering dose of Hydrocodone and we discussed that she will need to f/u with [facility] for her continued medical care/medications. - Hydrocodone/APAP 5mg once a day prn #30 Opioid Contract Discussion: - The patient was given a copy of the Clinic Prescription Drug Agreement and was counseled extensively regarding its contents. -The patient is to take their pain medication exactly as prescribed. No increases in medications are to be without first contacting the office and explaining the reason behind the increase and getting approval to do so. - The patient is not to obtain medications from other providers without first notifying the other provider what they obtain from this clinic and need to notify this clinic when they obtain pain medications from other providers. -The patient is to bring their pain medications to each and every office visit for pill counts to monitor compliance for their safety. -The patient is subject to periodic urine drug testing at the discretion of the provider as well as state and federal regulations. -The patient was warned of the risks and benefits of taking opioid pain medication, the risk of addiction, the risk of withdrawal and the differences. I have discussed in great detail our potential treatment options which would include a rehabilitative approach to care. This program would include medication management, Physical Therapy, consideration for interventional procedures as appropriate, and lifestyle modification (diet, weight loss, exercise, smoking/tobacco cessation, holistic approach including meditation and yoga). The patient understands and agrees prior to proceeding with this plan. _ __ __ __ __ __ __ __ __ __ __ __ __ __ __ __ __ __ __ __ __ __ __ __ __ __ __ __ _ RECORDS REVIEW: As per clinic policy, we will have the patient sign a release to obtain previous imaging and clinical notes. ----- PROCEDURE: I counseled the patient extensively and informed of the risks of the procedure, including the risk of paralysis, nerve damage, respiratory arrest, arrhythmias, stroke, weakness, and infection, which although very low, could result in or disability. The patient acknowledged to me that they understand and accept these risks. RN EDUCATION Extensive coordination of care provided by RN to educate patient on upcoming procedure and to coordinate obtaining extensive incoming medical records. _ __ __ __ __ __ __ __ __ __ __ __ __ __ __ __ __ __ __ __ __ __ __ __ __ __ __ __ _ PSYCH: Pain affecting Neuro-psych behavior was discussed. Discussed about pain psychological counseling as a part of the multimodal approach to pain treatment. _ __ __ __ __ __ __ __ __ __ __ __ __ __ __ __ __ __ __ __ __ __ __ __ __ __ __ __ _ REHABILITATION: Discussed with the patient the importance of diet, daily physical activity and PT. Discussed with the patient the need to be scheduled for physical therapy since physical therapy will prolong the benefits of the procedure and interventions. _ __ __ __ __ __ __ __ __ __ __ __ __ __ __ __ __ __ __ __ __ __ __ __ __ __ __ __ _ NA: [id number] I have reviewed patient's NA report prior to prescribing Schedule II, III, and IV medications that require review by law. [place] PDMP reviewed and appropriate. UDS reviewed and consistent with current regimen. Controlled substance contract reviewed and signed line by line. Risks of medication therapy including respiratory depression, , and hazards of operating heavy machinery including automobiles discussed at length. Patient given information with six opioid/Controlled substance safety steps: 1. Never take a prescription pain medication unless it is prescribed for you. 2. Do not take pain medicine with alcohol. 3. Do not take more doses than prescribed. 4. Use with other sedative or anti-anxiety medications can be dangerous. 5. Avoid using prescription pain medication to help you fall asleep. 6. Lock up prescription pain medications. Opioid Contract Discussion: The patient was given a copy of the Clinic Prescription Drug Agreement and was counseled extensively regarding its contents. The patient is to take their pain medication exactly as prescribed. No increases in medications are to be without first contacting the office and explaining the reason behind the increase and getting approval to do so. The patient is not to obtain medications from other providers without first notifying the other provider what they obtain from this clinic and need to notify this clinic when they obtain pain medications from other providers. The patient is to bring their pain medications to each and every office visit for pill counts to monitor compliance for their safety. The patient is subject to periodic urine drug testing at the discretion of the provider as well as state and federal regulations. The patient was warned of the risks and benefits of taking opioid pain medication, the risk of addiction, the risk of withdrawal and the differences. [email or web address] Not available 11/05/2023 07:58:30 11/24/2023 11/24/2023 Ms. Deleon was referred by Dr. Skinner for management of lumbar radiculopathy. The patient is diabetic, anti-coagulation, and nicotine dependence. The patient reports osteopenia. [email or web address] Not available 11/24/2023 11:33:22 Plan of Treatment Reminders Order Date Submit Date Provider Last Modified By Organization Details Last Modified Time Details Appointments None recorded. Lab CBC w/ auto diff 2024 025 [facility] (Registration ), [address] [place] [address] , [place], [address], 17:02:53 CMP, serum or plasma 2024 025 [facility] (Registration ), [address], [place], [address], 5 18:18:24 ferritin, serum or plasma 2024 025 [facility] (Registration ), [address], [place], [address], 5 18:18:26 iron saturation, serum [address] (Registration ), [address], [place], [address], 5 14:21:30 vitamin B12 + folate, serum or blood 2024 025 [facility] (Registration ), [address], [place], [address], 5 12:14:05 haptoglobin , serum 2024 025 [facility] (Registration ), [address], [place], [address], 5 08:13:54 ldh, serum or plasma 2024 [facility] (Registration ), [address], [place], [address], 5 18:18:25 reticulocyt e count, auto, blood [address] (Registration ), [address], [place], [address], 5 14:21:30 iron + total iron-bindin g capacity (TIBC), serum 2024 025 [facility] (Registration ), [address], [place], [address], 18:30:38 Referral None recorded. Procedures None recorded. Surgeries None recorded. Imaging None recorded. Medication Orders hydrocodone 5 mg-acetamin ophen 325 mg tablet 2023 024 [facility], [address] [place] [address] [place], [place], [id number], 10:46:20 Patient TargetsNo targets recorded. Patient Instructions Encounter Date Encounter Id Patient Instructions Last Modified By Organization Details Last Modified Time 09/22/2023 [id number] proceed with EGD as scheduled [email or web address] Not available 09/22/2023 12:03:37 Patient seen by physician it assistant. I have reviewed the patient's medical record, the medical decision making and treatment plan. [email or web address] Not available 09/22/2023 12:03:41 10/13/2023 [id number] I recommended that she follow-up with her PCP for her continued nausea and vomiting and follow-up her pneumonia. [email or web address] Not available 10/13/2023 14:18:36 Patient seen by physician it assistant. I have reviewed the patient's medical record, the medical decision making and treatment plan. [email or web address] Not available 10/13/2023 14:18:39 Reason for Referral None Reported. Results Created Date Observation Date Name Description Value Unit Range Abnormal Flag Note LastModifiedBy Organization Detail LastModifiedTime 10/01/1910/01/2023 GLUCO SE POINT OF CARE note See Note Order ing Provi lukasz: Lauren Payne MD Not Available [address] Tatiana Reyna, [place], [address], 10/01/2023 09:48:38 10/01/19 24 10/01/2023 GLUCO SE POINT OF CARE glucose point of care 324 mg/dL 70-99 high Not Available [place] [address], [place], [address], 10/01/2023 09:48:38 10/01/19 24 10/01/2023 GLUCO SE POINT OF CARE performing lab see note [facility] - [facility] [address] [facility] [address] Not Available [address] , [place], [address], 10/01/2023 09:48:38 06/21/1906/20/2024 CBC W/AUT O DIFFE RENTI AL note SEE NOTE Order ing Provi lukasz: Kay chan APRN Not Available [address] , [place], [address], 06/20/2024 17:02:53 06/21/19 25 06/20/2024 CBC W/AUT O DIFFE RENTI AL white blood cell 8.7 10e3/ uL 4.5-13 .0 normal Not Available [address] , [place], [address], 06/20/2024 17:02:53 06/21/19 25 06/20/2024 CBC W/AUT O DIFFE RENTI AL red blood cell 4.34 10e6/ uL 3.80-5 .10 normal Not Available [address] , [place], [address], 06/20/2024 17:02:53 06/21/19 25 06/20/2024 CBC W/AUT O DIFFE RENTI AL hemoglobin 10.5 g/dL 11.5-1 5.3 low Not Available [address] Tatiana Reyna, [place], [address], 06/20/2024 17:02:53 06/21/19 25 06/20/2024 CBC W/AUT O DIFFE RENTI AL hematocrit 33.2 % 34.0-4 6.0 low Not Available [address] Tatiana Reyna, [place], [address], 06/20/2024 17:02:53 06/21/19 25 06/20/2024 CBC W/AUT O DIFFE RENTI AL mean cell volume 77 fL 78.0-9 8.0 low Not Available [address] , [place], [address], 06/20/2024 17:02:53 06/21/19 25 06/20/2024 CBC W/AUT O DIFFE RENTI AL mean cell HGB 24.2 pg 25.0-3 5.0 low Not Available [address] Tatiana Reyna, [place], [address], 06/20/2024 17:02:53 06/21/19 25 06/20/2024 CBC W/AUT O DIFFE RENTI AL mean cell HGB concentratio n 31.6 g/dL 31.0-3 6.0 normal Not Available [address] , [place], [address], 06/20/2024 17:02:53 06/21/19 25 06/20/2024 CBC W/AUT O DIFFE RENTI AL red cell distribution width 16.3 % 11.0-1 5.0 high Not Available [address] Tatiana Reyna, [place], [address], 06/20/2024 17:02:53 06/21/19 25 06/20/2024 CBC W/AUT O DIFFE RENTI AL platelet count 345 10e3/ uL 150-40 0 normal Not Available [address] Tatiana Reyna, [place], [address], 06/20/2024 17:02:53 06/21/19 25 06/20/2024 CBC W/AUT O DIFFE RENTI AL immature granulocyte % 1 0-1 normal Not Available [address] Tatiana Reyna, [place], [address], 06/20/2024 17:02:53 06/21/19 25 06/20/2024 CBC W/AUT O DIFFE RENTI AL neutrophil % 73 % 35-75 normal Not Available [address] , [place], [address], 06/20/2024 17:02:53 06/21/1906/20/2024 CBC W/AUT O DIFFE RENTI AL lymphocyte % 16 % 10-50 normal Not Available [address] , [place], [address], 06/20/2024 17:02:53 06/21/19 25 06/20/2024 CBC W/AUT O DIFFE RENTI AL monocyte % 7 % 0-15 normal Not Available [address] Tatiana Reyna, [place], [address], 06/20/2024 17:02:53 06/21/19 25 06/20/2024 CBC W/AUT O DIFFE RENTI AL eosinophil % 3 % 0-5 normal Not Available [address] Tatiana Reyna, [place], [address], 06/20/2024 17:02:53 06/21/19 25 06/20/2024 CBC W/AUT O DIFFE RENTI AL basophil % 0 % 0-5 normal Not Available [address] Tatiana Reyna, [place], [address], 06/20/2024 17:02:53 06/21/19 25 06/20/2024 CBC W/AUT O DIFFE RENTI AL immature granulocyte # 0.04 x1000 /uL 0-0.05 normal Not Available [address] Tatiana Reyna, [place], [address], 06/20/2024 17:02:53 06/21/19 25 06/20/2024 CBC W/AUT O DIFFE RENTI AL neutrophil # 6.34 x1000 /uL 1.50-8 .00 normal Not Available [address] Tatiana Reyna, [place], [address], 06/20/2024 17:02:53 06/21/19 25 06/20/2024 CBC W/AUT O DIFFE RENTI AL lymphocyte # 1.40 x1000 /uL 1.20-5 .20 normal Not Available [address] Tatiana Reyna, [place], [address], 06/20/2024 17:02:53 06/21/19 25 06/20/2024 CBC W/AUT O DIFFE RENTI AL monocyte # 0.61 x1000 /uL 0.40-0 .90 normal Not Available [address] Tatiana Reyna, [place], [address], 06/20/2024 17:02:53 06/21/19 25 06/20/2024 CBC W/AUT O DIFFE RENTI AL eosinophil # 0.24 x1000 /uL 0.00-0 .50 normal Not Available [address] [place]iana Reyna, [place], [address], 06/20/2024 17:02:53 06/21/19 25 06/20/2024 CBC W/AUT O DIFFE RENTI AL basophil # 0.02 x1000 /uL 0.00-0 .30 normal Not Available [place] [address], [place], [address], 06/20/2024 17:02:53 06/21/19 25 06/20/2024 CBC W/AUT O DIFFE RENTI AL NRBC automated 0.0 /100_ WBC Not Available [address] Tatiana Reyna, [place], [address], 06/20/2024 17:02:53 06/21/19 25 06/20/2024 CBC W/AUT O DIFFE RENTI AL performing lab SEE NOTE ML - [place] [address] [facility] [address] Not Available [place] [address], [place], [address], 06/20/2024 17:02:53 06/21/19 25 06/20/2024 RETIC ULOCY TE COUNT note See Note Order ing Provi lukasz: Kay chan MACHINE HEEL SPRAYER Not Available [address] [place]iana Reyna, [place], [address], 06/20/2024 17:02:54 06/21/19 25 06/20/2024 RETIC ULOCY TE COUNT reticulocyte count 1.2 % 0.5-1. 7 normal Not Available [address] [place]iana Reyna, [place], [address], 06/20/2024 17:02:54 06/21/19 25 06/20/2024 RETIC ULOCY TE COUNT absolute retic# 0.052 x10e6 /uL 0.016- 0.078 normal Not Available [address] Tatiana Reyna, [place], [address], 06/20/2024 17:02:54 06/21/1906/20/2024 RETIC ULOCY TE COUNT performing lab see note - [facility] R [address] [place] [address] DRIVE [facility] [address] Not Available [address] [place] Reyna, [place], [address], 06/20/2024 17:02:54 06/21/19 25 06/20/2024 COMP METAB OLIC PANEL note SEE NOTE Order ing Provi lukasz: Kay chan MACHINE HEEL SPRAYER Not Available [address] [place]a, [place], [address], 06/20/2024 18:18:24 06/21/19 25 06/20/2024 COMP METAB OLIC PANEL sodium 139 mmol/ L 136-14 5 normal Not Available [address] [place]iana Reyna, [place], [address], 06/20/2024 18:18:24 06/21/19 25 06/20/2024 COMP METAB OLIC PANEL potassium 5.0 mmol/ L 3.5-5. 1 normal Not Available [place] [address], [place], [address], 06/20/2024 18:18:24 06/21/19 25 06/20/2024 COMP METAB OLIC PANEL chloride 102 mmol/ L 98-107 normal Not Available [place] [address], [place], [address], 06/20/2024 18:18:24 06/21/19 25 06/20/2024 COMP METAB OLIC PANEL carbon dioxide 30 mmol/ L 24-33 normal Not Available [place] [address], [place], [address], 06/20/2024 18:18:24 06/21/19 25 06/20/2024 COMP METAB OLIC PANEL anion gap 12.0 mmol/ L 10-20 normal Not Available [place] [address], [place], [address], 06/20/2024 18:18:24 06/21/19 25 06/20/2024 COMP METAB OLIC PANEL glucose 98 mg/dL 70-99 normal Not Available [place] [address], [place], [address], 06/20/2024 18:18:24 06/21/19 25 06/20/2024 COMP METAB OLIC PANEL blood urea nitrogen 26 mg/dL 7-18 high Not Available [place] [address], [place], [address], 06/20/2024 18:18:24 06/21/19 25 06/20/2024 COMP METAB OLIC PANEL creatinine 0.70 mg/dL 0.55-1 .02 normal Not Available [place] [address], [place], [address], 06/20/2024 18:18:24 06/21/19 25 06/20/2024 COMP METAB OLIC PANEL GFR (estimated) 89 mL/mi n >60 normal [IM FREDRICK NT]: The 2020 CKD-E PI equat ion is now the recom tha d stand benjamin. This versi on does not inclu de race, as do the 2008 and 2011 CKD-E PI creat inine and creat inine -cyst atin C equat ions. Pleas e note that the eGFR now repor benja is gener ated by the new 2020 CKD-E PI equat ion, which decre ases the eGFR for black s by up to 10% and incre ases the eGFR for non-b lacks by up to 10% in jaylin rison to the old equat ion. To jaylin re a legac y eGFR to a curre nt value , a 2008 CKD-E PI calcu lator is easil y seanoemy hable on the inter net. Calcu lated GFR: This calcu lated GFR is advoc ated by the Natio nal Kidne y Found ation to be used as an indic ator of Chron ic Kidne y Disea se (CKD) . 5 Stage s of Chron ic Kidne y Disea se. Stage 1 90 mL/mi n or more Healt hy kidne ys or Kidne y damag e with alicia l or high GFR detai ls Stage 2 60 to 89 mL/mi n Kidne y damag e and mild decre ase in GFR detai ls Stage 3 30 to 59 mL/mi n Moder ate decre ase in GFR detai ls Stage 4 15 to 29 mL/mi n Sever e decre ase in GFR detai ls Stage 5 Less than 15 mL/mi n On dialy sis or Kidne y failu re Patie nt's clini harsh statu s must be consi dered for the care of your patie nt. Not Available [address] , [place], [address], 06/20/2024 18:18:24 06/21/19 25 06/20/2024 COMP METAB OLIC PANEL BUN/creatini ne ratio 37 12-20 high Not Available [address] , [place], [address], 06/20/2024 18:18:24 06/21/19 25 06/20/2024 COMP METAB OLIC PANEL total protein 8.1 g/dL 6.4-8. 2 normal Not Available [address] , [place], [address], 06/20/2024 18:18:24 06/21/19 25 06/20/2024 COMP METAB OLIC PANEL albumin 3.1 g/dL 3.4-5. 0 low Not Available [address] , [place], [address], 06/20/2024 18:18:24 06/21/19 25 06/20/2024 COMP METAB OLIC PANEL globulin 5.0 g/dL 1.5-4. 0 high Not Available [address] , [place], [address], 06/20/2024 18:18:24 06/21/19 25 06/20/2024 COMP METAB OLIC PANEL albumin/glob ulin ratio 0.6 0.5-2. 0 normal Not Available [address] , [place], [address], 06/20/2024 18:18:24 06/21/19 25 06/20/2024 COMP METAB OLIC PANEL calcium 9.6 mg/dL 8.5-10 .1 normal Not Available [address] , [place], [address], 06/20/2024 18:18:24 06/21/19 25 06/20/2024 COMP METAB OLIC PANEL osmolality serum calculated 282 mOsm/ kg 272-28 8 normal Not Available [address] , [place], [address], 06/20/2024 18:18:24 06/21/19 25 06/20/2024 COMP METAB OLIC PANEL bilirubin total 0.2 mg/dL 0.2-1. 0 normal Use of this assay is not recom tha d for patie nts under going treat ment with Eltro mbopa g due to the poten tial for false ly eleva benja resul ts. Not Available [address] , [place], [address], 06/20/2024 18:18:24 06/21/19 25 06/20/2024 COMP METAB OLIC PANEL SGOT/AST 15 U/L 15-37 normal Not Available [address] , [place], [address], 06/20/2024 18:18:24 06/21/19 25 06/20/2024 COMP METAB OLIC PANEL SGPT/ALT 13 U/L 14-59 low Not Available [address] , [place], [address], 06/20/2024 18:18:24 06/21/19 25 06/20/2024 COMP METAB OLIC PANEL alkaline phosphatase total 133 U/L 46-116 high Not Available [address] , [place], [address], 06/20/2024 18:18:24 06/21/19 25 06/20/2024 COMP METAB OLIC PANEL performing lab SEE NOTE - [facility] R [address] [facility] [address] Not Available [address] , [place], [address], 06/20/2024 18:18:24 06/21/19 25 06/20/2024 LACTI C IAN STORY ASE(L ) note SEE NOTE Order ing Provi lukasz: Kay chan APRN Not Available [address] , [place], [address], 06/20/2024 18:18:25 06/21/19 25 06/20/2024 LACTI Dayron STORY ASE(L DH) lactic dehydrogenas e(LDH) 166 U/L 81-234 normal Not Available [address] , [place], [address], 06/20/2024 18:18:25 06/21/19 25 06/20/2024 LACTI Dayron IAN JEZ ASE(L DH) performing lab SEE NOTE ML [facility] [address] [place] [address] Not Available [address] , [place], [address], 06/20/2024 18:18:25 06/21/19 25 06/20/2024 EMILY TIN note SEE NOTE Order ing Provi lukasz: Kay chan MACHINE HEEL SPRAYER Not Available [address] , [place], [address], 06/20/2024 18:18:26 06/21/19 25 06/20/2024 EMILY TIN ferritin 244 NG/mL 8-252 normal Not Available [address] , [place], [address], 06/20/2024 18:18:26 06/21/19 25 06/20/2024 EMILY TIN performing lab SEE NOTE ML - [facility] R [address] [place] [address] Not Available [address] , [place], [address], 06/20/2024 18:18:26 06/21/19 25 06/20/2024 FE W/TOT AL IRON MEG NG CAP note SEE NOTE Order ing Provi lukasz: Kay chan MACHINE HEEL SPRAYER Not Available [address] [place], [address], 06/20/2024 18:30:38 06/21/19 25 06/20/2024 FE W/TOT AL IRON MEG NG CAP iron 36 ug/dL 50-170 low Not Available [address] , [place], [address], 06/20/2024 18:30:38 06/21/19 25 06/20/2024 FE W/TOT AL IRON MEG NG CAP total iron binding capacity 281 ug/dL 260-44 5 normal Not Available [address] , [place], [address], 06/20/2024 18:30:38 06/21/19 25 06/20/2024 FE W/TOT AL IRON MEG NG CAP iron saturation 13 % 20-50 low Not Available [address] , [place], [address], 06/20/2024 18:30:38 06/21/19 25 06/20/2024 FE W/TOT AL IRON MEG NG CAP performing lab SEE NOTE ML - [facility] [address] [place] [address] DR[address] [facility] [address] Not Available [address] , [place], [address], 06/20/2024 18:30:38 06/21/19 25 06/20/2024 HAPTO GLOBI N note SEE NOTE Order ing Provi lukasz: Kay Delvalle ell MACHINE HEEL SPRAYER Not Available [address] , [place], [address], 06/22/2024 08:13:53 06/21/19 25 06/20/2024 HAPTO GLOBI N haptoglobin 347 mg/dL 42-346 high Perfo rmed At: CB, [facility] [address] [facility], [place], [address] Deon hidalgo, PhD, Phone : [phone] Not Available [address] , [place], [address], 06/22/2024 08:13:53 06/21/19 25 06/20/2024 HAPTO GLOBI N performing lab SEE NOTE LC2 - [facility]EN T# [id number] [place] [address] Not Available [address] , [place], [address], 06/22/2024 08:13:53 06/21/1906/20/2024 VITAM IN B12 FOLAT E note SEE NOTE Order ing Provi lukasz: Kay chan APRN Not Available [address] , [place], [address], 06/22/2024 12:14:05 06/21/19 25 06/20/2024 VITAM IN B12 FOLAT E vitamin B12 685 pg/mL 232-12 45 Not Available [address] , [place], [address], 06/22/2024 12:14:05 06/21/19 25 06/20/2024 VITAM IN B12 FOLAT E folic acid 8.4 NG/mL >3.0 . A serum folat e bobby ntrat ion of less than 3.1 ng/mL is consi dered to repre sent clini harsh defic iency . Perfo rmed At: CB, [facility] [address] [place], [address] Deon hidalgo, PhD, Phone : [phone] Not Available [address] , [place], [address], 06/22/2024 12:14:05 06/21/19 25 06/20/2024 VITAM IN B12 FOLAT E performing lab SEE NOTE LC2 - [facility] T# [id number] [place] [address] Not Available [address] [address] , [place], [address], 06/22/2024 12:14:05 Result Notes None recorded. 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 Keven Byers null, [place] - [place] - & [place] 4 13:43:44 Mixed hyperlipidemia 105279247 Active 2015 Keven [place]ers [place] & [place] 4 13:43:44 Osteopenia 819807227 Active 2015 Keven By[place] & [place] 4 13:43:44 Type 2 diabetes mellitus without complication 685363071 Active 2015 Keven [place] & [place] 4 13:43:44 Essential hypertension 64495071 Active 2015 Keven Byers [place] & [place] 4 13:43:44 Chepe-Parkinso n-White pattern 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 2016 Keven Byers [place], [place] [facility] & [place] 4 13:43:44 Anxiety 27408924 Active 2017 Keven Byers null, [place] [facility] & [place] 4 13:43:44 Neuropathy due to diabetes mellitus 899203468 Active 2018 Keven Byers [place] [facility] & [place] 4 13:43:44 Uncontrolled type 2 diabetes mellitus 594769801 Active 2019 Keven [place]ers [place] [facility] & [place] 4 13:43:44 History of polyp of colon 935371840 Active 2019 Keven Byers [place] - [place] & [place] 4 13:43:44 Mixed anxiety and depressive disorder 688163221 Active 2020 Keven Daileygieri null[place] & [place] 4 13:43:44 Spinal stenosis of lumbar region 14391250 Active 2021 Keven [place]ers [place] & [place] 4 13:43:44 Hypertensive disorder 31053732 Active 2023 [place] Beardswor th [place] & [place] 4 14:31:59 Seizure 35094897 Active 2023 [place] Beard[place] & [place] 4 14:32:05 Diabetes mellitus 80613141 Active 2023 [place] Beardswor th [place] & [place] 4 14:32:16 Hyperlipidemia 10596790 Active 2023 [place] Beard[place] & [place] 4 14:32:24 Depressive disorder 15201318 Active 2023 [place] Beard[place] & [place] 4 14:32:29 Chronic hepatitis 30322294 Active 2023 [place] Beardsw[place] th [place] & [place] 4 14:32:40 Arthritis 8625276 Active 2023 [place] Beardsw[place] th [place] & [place] 4 14:32:45 Osteoporosis 34133793 Active 2023 [place] Beardsw[place] th [place] & [place] 4 14:33:02 Diarrhea 46652634 Active 2023 Keven Byers [place] & [place] 4 13:43:44 Insomnia 317047444 Active 2023 Keven Guerraeri [place] & [place] 4 13:43:44 Lumbar radiculopathy 550783062 Active 2023 Eva Kearns [place] & [place] 4 13:42:27 Degeneration of lumbar intervertebral disc 98977353 Active 2023 Eva Kearns [place] & [place] 4 13:42:28 Radicular pain 60152363 Active 2023 Eva [place]ear[place] & [place] 4 13:42:30 Myofascial pain 123233596 Active 2023 Eva Kearns [place] & [place] 4 13:42:31 Occult blood detected in feces 68929334 Active 2023 Trace Grossman MD [facility], [place], [address], [place] & [place] 4 12:15:57 Anemia 927133820 Active 2023 JUAN DYKES, JOSIAH [facility], [place], [address], [place] & [place] 5 08:20:20 Epigastric pain 32761607 Active 2023 Trace Grossman MD [facility],[address], [place], [address], [place] & [place] 4 14:12:09 Chronic diarrhea 015585158 Active 2023 Trace Grossman MD [address] [place] [address],[address], [place], [address], [place] & [place] 4 14:18:03 Abnormal weight loss 500484256 Active 2023 Trace Grossman MD [address] [place] [address],[place] [address], [place], [address], MARCUS STEFF [facility] & [place] 4 14:20:13 Opioid dependence 82759028 Active 2023 Eva becerra MARCUS ARTIS [facility] & [place] 15:25:52 Problem Notes None recorded. Procedures Surgical History Date Name Laterality Status Provider Name and Address Organization Details Recorded Time 02/08/19 17 endometrial resection completed Keven ARTIS [facility] & [place] 06/18/2023 13:56:37 Laparoscopic cholecystectomy completed Rosmery VELAZQUEZ STEFF [facility] & [place] 08/16/2023 13:23:54 Total Hysterectomy completed [facility] Codey VELAZQUEZ STEFF [facility] & [place] 08/16/2023 13:24:11 Dilation and curettage completed Rosmery Codey VELAZQUEZ STEFF [facility] & [place] 08/16/2023 13:24:33 Elbow arthroscopy/surgery completed [facility] Codey VELAZQUEZ STEFF [facility] & [place] 08/16/2023 13:24:52 Imaging Results None recorded. Procedure Notes None recorded. Medical Equipment None Reported. Allergies Allergen ID Allergen Name Allergen Category Reaction Reaction Severity Criticality Documentation Date Start Date Code Code System Note Provider Name and Address Organization Details Recorded Time 504360 gabapenti n medicatio n nausea mild Not available 06/18/20232015 55783 RxNorm MARCUS Kovacs [facility] & [place] 4 13:43:33 130543 Byetta medicatio n nausea Not available Not available 06/18/2023 43909 1 RxNorm MARCUS Kovacs [facility] & [place] 13:43:33 Medications Name Sig Start Date Stop Date Status Note LastModified by Organization Details LastModified Time cyclobenzap rine 10 mg tablet Take 1 tablet 3 times a day by oral route as needed. 05/10 completed Not Available Not Available Not Available amoxicillin 500 mg capsule TAKE ONE CAPSULE BY MOUTH TWICE DAILY FOR 10 DAYS 06/17 completed Not Available Not Available Not Available metformin 500 mg tablet TAKE ONE (1) TABLET IN IN THE MORNING AND ONE HALF (1/2) TAB AT NIGHT active Not Available Not Available No t Available clonidine HCl 0.1 mg tablet Take 1 tablet every day by oral route as directed for 7 days. 12/01 completed Not Available Not Available Not Available desoximetas one 0.25 % topical cream APPLY A THIN LAYER TO THE AFFECTED AREA(S) BY TOPICAL ROUTE 2 TIMES PER DAY ; RUB IN GENTLY AND COMPLETEL Y 01/13 completed Not Available Not Available Not Available tizanidine 2 mg tablet 06/20 completed Not Available Not Available Not Available trazodone 50 mg tablet TAKE 1 TO 2 TABLETS BY MOUTH 30 min- ONE hour prior TO bedtime 06/17 completed Not Available Not Available Not Available Betapace 120 mg tablet I PO BID 05/28 completed Not Available Not Available Not Available triamcinolo ne acetonide 0.5 % topical cream apply a thin layer to the affected area(s) by topical route 2 times per day 01/13 completed Not Available Not Available Not Available azithromyci n 250 mg tablet TAKE ONE TABLET BY MOUTH DAILY FOR FOUR DAYS 11/23 completed Not Available Not Available Not Available tizanidine 4 mg tablet TAKE ONE (1) TABLET AT BEDTIME NEEDED active Not Available Not Available No t Available benzonatate 200 mg capsule Take 1 capsule 3 times a day by oral route as needed. 03/03 completed Not Available Not Available Not Available hydrocodone 5 mg-acetamin ophen 325 mg tablet Take 1 tablet every 24 hours by oral route as needed for 30 days, for severe pain. 2023 active Not Available Not Available Not Avai lable sotalol 80 mg tablet TAKE TWO (2) TABLETS TWICE DAILY active Not Available Not Available No t Available meloxicam 15 mg tablet TAKE ONE (1) TABLET EVERY DAY BY ORAL ROUTE WITH A MEAL active Not Available Not Available No t Available sucralfate 1 gram tablet TAKE ONE TABLET BY MOUTH THREE TIMES DAILY FOR SEVEN DAYS active Not Available Not Available No t Available prednisone 20 mg tablet Take 1 tablet every day by oral route in the morning. 02/21 completed Not Available Not Available Not Available alendronate 70 mg tablet TAKE 1 TABLET EVERY WEEK 1st thing in the morning with a full class of water, then nothing to eat and don't lie down for 30 mins active Not Available Not Available No t Available clonazepam 0.5 mg tablet TAKE ONE TABLET BY MOUTH EVERY DAY FOR 7 DAYS 08/15 completed Not Available Not Available Not Available sertraline 100 mg tablet TAKE ONE (1) TABLET BY MOUTH EVERY DAY active Not Available Not Available No t Available clonazepam 1 mg tablet TAKE ONE TABLET BY MOUTH TWICE DAILY active Not Available Not Available No t Available metformin 850 mg tablet TAKE 1 TABLET TWICE DAILY active Not Available Not Available No t Available Inderal 10 mg tablet 1 PO TID 05/28 completed Not Available Not Available Not Available meclizine 12.5 mg tablet 06/08 completed Not Available Not Available Not Available melatonin 3 mg tablet TAKE ONE (1) TABLET NEEDED BY ORAL ROUTE AT BEDTIME FOR 15 DAYS. active Not Available Not Available No t Available Glucophage 1,000 mg tablet take 1 tablet (1,000 mg) by oral route 2 times per day with morning and evening meals 05/28 completed Not Available Not Available Not Available sulfamethox azole 800 mg-trimetho prim 160 mg tablet Take 1 tablet every 12 hours by oral route for 7 days. 10/21 completed Not Available Not Available Not Available hydrocodone 10 mg-acetamin ophen 325 mg tablet TAKE ONE TABLET BY MOUTH EVERY 6 HOURS NEEDED FOR PAIN MAY CAUSE DROWSINES S active Not Available Not Available No t Available omeprazole 40 mg capsule,del ayed release TAKE ONE CAPSULE BY MOUTH EVERY DAY 11/03 completed Not Available Not Available Not Available SPS (with sorbitol) 15 gram-20 gram/60 mL oral suspension TAKE 60 ML EVERY DAY BY ORAL ROUTE, FOR HYPERKALE RICARDO. active Not Available Not Available No t Available lovastatin 10 mg tablet TAKE ONE (1) TABLET BY MOUTH AT BEDTIME active Not Available Not Available No t Available triamcinolo ne acetonide 0.1 % topical cream APPLY A THIN LAYER TO THE AFFECTED AREA(S) BY TOPICAL ROUTE TWICE DAILY NEEDED active Not Available Not Available No t Available amoxicillin 500 mg tablet Take 1 tablet twice a day by oral route for 10 days, for sinus infection . 03/23 completed Not Available Not Available Not Available Amaryl 4 mg tablet take 1 tablet (4 mg) by oral route twice daily 01/13 completed Not Available Not Available Not Available sodium polystyrene sulfonate 15 gram/60 mL oral suspension Take 15 g every day by oral route for 2 days, for hyperkale ricardo. 2023 active Not Available Not Available Not Avai lable famotidine 20 mg tablet TAKE ONE (1) TABLET TWICE A DAY BY ORAL ROUTE FOR 30 DAYS. active Not Available Not Available No t Available hydrocortis one 2.5 % lotion APPLY A THIN LAYER TO THE AFFECTED AREA(S) BY TOPICAL ROUTE ONCE DAILY 10/01 completed Not Available Not Available Not Available gentamicin 0.3 % eye drops INSTILL 1 DROP INTO AFFECTED EYE(S) BY OPHTHALMI C ROUTE EVERY 4 HOURS while awake for 4-7 days 06/27 completed Not Available Not Available Not Available amlodipine 10 mg tablet TAKE 1 TABLET EVERY DAY active Not Available Not Available No t Available benzonatate 100 mg capsule TAKE ONE (1) CAPSULE TWICE A DAY BY ORAL ROUTE FOR THREE (3) DAYS. active Not Available Not Available No t Available hydrocodone 7.5 mg-acetamin ophen 325 mg tablet TAKE ONE (1) TABLET BY MOUTH THREE TIMES DAILY active Not Available Not Available No t Available cephalexin 500 mg capsule Take 1 capsule twice a day by oral route for 7 days. 11/03 completed Not Available Not Available Not Available pantoprazol e 40 mg tablet,mary yed release TAKE ONE TABLET BY MOUTH EVERY MORNING FOR FOUR WEEKS 06/17 completed Not Available Not Available Not Available buspirone 10 mg tablet TAKE ONE TABLET BY MOUTH TWICE DAILY active Not Available Not Available No t Available lidocaine 5 % topical patch APPLY 1 PATCH BY TOPICAL ROUTE ONCE DAILY (MAY WEAR UP TO 12HOURS.) 12/12 completed Not Available Not Available Not Available losartan 25 mg tablet take 1 tablet (25 mg) by oral route once daily 04/14 completed Not Available Not Available Not Available Amaryl 2 mg tablet take 1 tablet (2 mg) by oral route once daily 05/28 completed Not Available Not Available Not Available gabapentin 300 mg capsule TAKE ONE CAPSULE BY MOUTH DAILY MAY cause drowsines s active Not Available Not Available No t Available buspirone 7.5 mg tablet TAKE ONE TABLET BY MOUTH TWICE DAILY NEEDED 06/17 completed Not Available Not Available Not Available omeprazole 20 mg capsule,del ayed release TAKE ONE (1) CAPSULE TWICE A DAY BY ORAL ROUTE FOR 30 DAYS. active Not Available Not Available No t Available Provera 10 mg tablet 1 po qd x 10 d report any bleeding whatsoeve r 11/28 completed Not Available Not Available Not Available ceftriaxone 500 mg solution for injection Inject 500mg IM x 1 08/03 completed Not Available Not Available Not Available furosemide 20 mg tablet Take 1 tablet every day by oral route for 2 days. 05/23 completed Not Available Not Available Not Available levofloxaci n 500 mg tablet Take 1 tablet every 24 hours by oral route. 10/27 completed Not Available Not Available Not Available lovastatin 20 mg tablet 08/03 completed Not Available Not Available Not Available methylpredn isolone 4 mg tablets in a dose pack 06/08 completed Not Available Not Available Not Available sodium polystyrene sulfonate 15 gram oral powder take 15 grams (ONE BOTTLE) BY MOUTH EVERY DAY FOR TWO DAYS 06/17 completed Not Available Not Available Not Available ketorolac 60 mg/2 mL intramuscul ar solution Inject 2 mL as needed by intramusc ular route. 03/02 completed Not Available Not Available Not Available Percocet 5 mg-325 mg tablet 05/28 completed Not Available Not Available Not Available fluocinonid e 0.05 % topical cream 01/13 completed Not Available Not Available Not Available Zocor 5 mg tablet take 1 tablet (5 mg) by oral route once daily in the evening 05/28 completed Not Available Not Available Not Available ondansetron 4 mg disintegrat ing tablet DISSOLVE ONE TABLET on top of tongue EVERY 6 HOURS NEEDED FOR NAUSEA AND VOMITING active Not Available Not Available No t Available cefdinir 300 mg capsule t1cpo EVERY 12 HOURS FOR 10 DAYS 11/03 completed Not Available Not Available Not Available losartan 100 mg tablet 06/08 completed Not Available Not Available Not Available fluticasone propionate 50 mcg/actuati on nasal spray,suspe nsion [place] 1 spray every day by intranasa l route. active Not Available Not Available No t Available clotrimazol e 1 % topical cream 01/13 completed Not Available Not Available Not Available sertraline 50 mg tablet TAKE ONE TABLET BY MOUTH EVERY DAY 08/15 completed Not Available Not Available Not Available candesartan 8 mg tablet TAKE ONE (1) TABLET BY MOUTH EVERY DAY active Not Available Not Available No t Available doxycycline hyclate 100 mg tablet 11/28 completed Not Available Not Available Not Available dicyclomine 10 mg capsule TAKE ONE (1) CAPSULE TWICE A DAY BY ORAL ROUTE FOR FIVE (5) DAYS. active Not Available Not Available No t Available Microlet Lancet USE DIRECTED active Not Available Not Available No t Available buspirone 15 mg tablet TAKE ONE (1) TABLET TWICE A DAY BY ORAL ROUTE. active Not Available Not Available No t Available esomeprazol e magnesium 20 mg capsule,del ayed release TAKE ONE CAPSULE BY MOUTH EVERY DAY active Not Available Not Available No t Available Vicodin ES 750 mg-7.5 mg tablet PRN 09/12 completed Not Available Not Available Not Available Blood Glucose Test strips Take 1 strip 3 times a day by miscell. route. 2023 active Not Available Not Available Not Avai lable Mucinex 600 mg tablet, extended release Take 1 tablet every 12 hours by oral route. 03/03 completed Not Available Not Available Not Available Vitamin D3 25 mcg (1,000 unit) tablet Take 1 tablet 3 times a day by oral route. active Not Available Not Available No t Available Premarin 0.625 mg/gram vaginal cream insert 1/4 lester by vaginal route 3-4 x per week 09/12 completed Not Available Not Available Not Available hydrocodone 10 mg-acetamin ophen 300 mg tablet TAKE 1 TABLET BY MOUTH EVERY 6 HOURS NEEDED FOR PAIN 06/17 completed Not Available Not Available Not Available nitrofurant oin monohydrate /macrocryst als 100 mg capsule TAKE 1 CAPSULE BY MOUTH TWICE DAILY active Not Available Not Available No t Available BD Ultra-Fine Mini Pen Needle 31 gauge x 16 USE as directed with insulin active Not Available Not Available No t Available Boniva 150 mg tablet Take 1 tablet every month by oral route. 07/20 completed Not Available Not Available Not Available ramelteon 8 mg tablet TAKE ONE (1) TABLET EVERY DAY BY ORAL ROUTE AT BEDTIME, FOR SLEEP PROBLEMS. active Not Available Not Available No t Available Levemir FlexPen 100 unit/mL (3 mL) solution subcutaneou s insulin pen INJECT 45 UNITS UNDER THE SKIN EVERY DAY AT BEDTIME active Not Available Not Available No t Available Golytely 236 gram-22.74 gram-6.74 gram-5.86 gram oral solution take prep is recommend ed by Dr. Grossman's office 08/15 completed Not Available Not Available Not Available Lantus Solostar U-100 Insulin 100 unit/mL (3 mL) subcutaneou s pen active Not Available Not Available Not Available diclofenac 1 % topical gel APPLY 2 GRAMS TO THE AFFECTED AREA(S) BY TOPICAL ROUTE 4 TIMES PER DAY PRN 06/04 completed Not Available Not Available Not Available BD Ultra-Fine Evette Pen Needle 32 gauge x 5/32 USE DIRECTED active Not Available Not Available No t Available Probiotic 10 billion cell capsule Take 1 capsule every day by oral route for 30 days. 2023 active Not Available Not Available Not Avai lable Swan 3 Fish Oil 684 mg-1,200 mg capsule,del ayed release take 1 capsule by oral route daily 09/12 completed Not Available Not Available Not [...] every day by oral route. 08/28 completed Not Available Not Available Not Available True Metrix Level 1 solution USE DIRECTED 03/17 completed Not Available Not Available Not Available Narcan 4 mg/actuatio n nasal spray Take 2 sprays every day by nasal route as needed for 1 day. 08/28 completed Not Available Not Available Not Available OneTouch Verio Flex Meter USE DIRECTED 03/17 completed Not Available Not Available Not Available Soliqua 100/33 100 unit-33 mcg/mL subcutaneou s insulin pen Inject 30 units every day by subcutane ous route in the evening. 11/28 completed Not Available Not Available Not Available Microlet Next Lancing Device kit USE DIRECTED WITH LANCETS active Not Available Not Available No t Available Shingrix (PF) 50 mcg/0.5 mL intramuscul ar suspension, kit 04/14 completed Not Available Not Available Not Available OneTouch Delica Plus Lancet 33 gauge USE DIRECTED active Not Available Not Available No t Available OneTouch Delica Plus Lancet 30 gauge USE DIRECTED FOUR TIMES DAILY 03/17 completed Not Available Not Available Not Available Flublok Quad (PF) 180 mcg (45 mcg x 4)/0.5 mL IM syringe PHARMACIS T ADMINISTE RED IMMUNIZAT ION ADMINISTE RED AT TIME OF DISPENSIN G 12/01 completed Not Available Not Available Not Available FreeStyle Amber 2 Sensor kit APPLY ONE SENSOR TO SKIN ONCE EVERY 14 DAYS. USE DIRECTED TO MONITOR BLOOD GLUCOSE. 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 active Not Available Not Available No t Available Dexcom G7 Sensor device USE DIRECTED active Not Available Not Available No t Available Vitals Date Recorded Body height Body mass index (BMI) Body weight Body temperature Oxygen saturation Oxygen saturation in Arterial blood by Pulse oximetry Heart rate Respiratory rate Systolic And Diastolic Provider Name and Address Organization Details Last Updated DateTime 5 154.94 cm 16.8 kg/m2 41842 g 98.9 [degF] 98 % 98 % 71 /min 14 /min 138/64 mm[Hg] Nathaly Patricia [place] - [facility] [facility] & [place] 5 13:26:06 Date Recorded Body height Body mass index (BMI) Body weight Oxygen saturation Oxygen saturation in Arterial blood by Pulse oximetry Body temperature Heart rate Respiratory rate Systolic And Diastolic Provider Name and Address Organization Details Last Updated DateTime 4 154.94 cm 17.9 kg/m2 66577.8 4 g 96 % 96 % 98.1 [degF] 70 /min 16 /min 171/73 mm[Hg] Kassie VELAZQUEZ [facility] & [place] 4 11:58:14 Date Recorded Body height Heart rate Oxygen saturation Oxygen saturation in Arterial blood by Pulse oximetry Body temperature Respiratory rate Systolic And Diastolic Provider Name and Address Organization Details Last Updated DateTime 4 154.94 cm 71 /min 94 % 94 % 98.1 [degF] 18 /min 118/57 mm[Hg] Gaby VELAZQUEZ [facility] & [place] 4 14:07:11 Date Recorded Body height Body mass index (BMI) Body weight Body temperature Oxygen saturation Oxygen saturation in Arterial blood by Pulse oximetry Heart rate Systolic And Diastolic Provider Name and Address Organization Details Last Updated DateTime 4 154.94 cm 17.9 kg/m2 23562.2 8 g 97.1 [degF] 96 % 96 % 85 /min 141/58 mm[Hg] Sudha VELAZQUEZ [facility] & [place] 4 14:27:40 Date Recorded Body height Body mass index (BMI) Body weight Body temperature Oxygen saturation Oxygen saturation in Arterial blood by Pulse oximetry Heart rate Systolic And Diastolic Provider Name and Address Organization Details Last Updated DateTime 4 154.94 cm 17.8 kg/m2 12854.6 8 g 97.4 [degF] 97 % 97 % 80 /min 140/80 mm[Hg] Sudha VELAZQUEZ [facility] & [place] 4 10:53:55 Social History Question Answer Notes LastModified by Organizat ion Details LastModified Time Tobacco Smoking Status Never Smoker Aurea becerra, MARCUS [facility] & [place] 03/08/2023 14:48:18 What Is Your Level Of Caffeine Consumption? None Information not available 06/18/2023 What Type Of Diet Are You Following? DIABETIC Information not available 06/18/2023 Sex: Unknown Functional Status Question Answer Note LastModified by Organizat ion Details LastModified Time Do you use any illicit or recreational drugs? No Information not available 06/18/2023 What is your level of alcohol consumption? None Information not available 06/18/2023 What is your exercise level? None Information not available 06/18/2023 Mental Status None recorded. Family History Nothing Reported. Medical History Condition Response Coronary Artery Disease N Other Y None N Gout N Colon Cancer N Kidney Stones N Hyperthyroidism N Hypothyroidism N Depression Y COPD N Osteoporosis/Osteopenia Y Diverticulitis/Diverticulosis N Colon Polyps N Anxiety Disorder Y Diabetes Y Bleeding Disorder N Arthritis Y Seizures/Epilepsy Y Tuberculosis N Hyperlipidemia N Cancer Y Stroke N Asthma N Reflux/GERD Y Sleep Apnea N High Cholesterol Y GERD/Reflux N Hepatitis N Liver Disease N Cirrhosis N Heart Disease Y Hypertension Y Kidney Disease N Gynecological HistoryNo gynecological history recorded. Obstetrics History GPAL:G 0 P 0 0 0 0 Immunizations Vaccine Type Date Status Note Provider Nam e and Address Organization Details Recorded Time Influenza, split virus, quadrivalent, preservative 7 completed Keven becerra [facility] & [place] 06/18/2023 13:43:52 Influenza, split virus, quadrivalent, preservative 9 [facility] 13:43:52 Influenza, split virus, quadrivalent, preservative 0 completed Keven becerra [facility] & [place] 06/18/2023 13:43:52 Influenza, split virus, quadrivalent, preservative 1 completed Keven becerra [facility] & [place] 06/18/2023 13:43:52 Influenza, split virus, quadrivalent, preservative 8 completed Keven becerra [facility] & [place] 06/18/2023 13:43:52 Influenza, recombinant, quadrivalent, PF 9 completed Keven becerra [facility] & [place] 06/18/2023 13:43:52 zoster recombinant 8 completed Keven Zeeshan null, [place] - [facility] - [facility] & [place] 06/18/2023 13:43:52 zoster recombinant 1 completed Keven Daileygieri null, [place] [facility] - [facility] & [place] 06/18/2023 13:43:52 zoster recombinant 8 completed Keven Daileygieri [place] [facility] & [place] 06/18/2023 13:43:52 Influenza, high-dose, quadrivalent, PF 0 completed Keven Zeeshan [place] [facility] [place] 06/18/2023 13:43:52 Influenza, high-dose, quadrivalent, PF 2 completed Keven Daileygieri [place] [facility] - [facility] & [place] 06/18/2023 13:43:52 COVID-19 vaccine, vector-nr, rS-Ad26, PF, 0.5 mL 1 completed Keven Daileygieri [place] [facility] - [facility] & [place] 06/18/2023 13:43:52 COVID-19 vaccine, vector-nr, rS-Ad26, PF, 0.5 mL 1 completed Keven Daileygieri null, [place] [facility] - [place] & [place] 06/18/2023 13:43:52 pneumococcal polysaccharide PPV23 9 completed Keven Daileygieri [place] [facility] & [place] 06/18/2023 13:43:52 pneumococcal polysaccharide PPV23 1 completed Keven Daileygieri [place] [facility] [facility] & [place] 06/18/2023 13:43:52 influenza, unspecified formulation 3 completed Keven Daileygieri [place] [facility] [place] [facility] & [place] 06/18/2023 13:43:52 influenza, unspecified formulation 1 completed Keven Daileygieri [place] [facility] - [place] & [place] 06/18/2023 13:43:52 influenza, unspecified formulation 2 completed Keven Daileygieri [place], [place] [facility] - [place] & [place] 06/18/2023 13:43:52 influenza, unspecified formulation 3 completed Keven Daileygieri null, [place] - [facility] - [place] & [place] 06/18/2023 13:43:52 Tdap 0 completed Keven Daileygieri null, [place] - [facility] - [place] & [place] 06/18/2023 13:43:52 Pneumococcal conjugate PCV 13 8 completed Keven Daileygieri null, [place] - [facility] - [place] & [place] 06/18/2023 13:43:52 zoster live 3 completed Keven Zeeshan null, [place] - [facility] - [place] & [place] 06/18/2023 13:43:52 Influenza, high-dose, trivalent, PF 8 completed Keven Daileygieri null, [place] - [facility] - [place] & [place] 06/18/2023 13:43:52 Influenza, high-dose, trivalent, PF 5 completed Keven Daileygieri null, [place] - [facility] & [place] 06/18/2023 13:43:52 Influenza, high-dose, trivalent, PF 6 completed Keven Byers null, [place] - [facility] - [place] & [place] 06/18/2023 13:43:52 Influenza, split virus, trivalent, PF 2 completed Keven Byers null, [place] - [facility] - [place] & [place] 06/18/2023 13:43:52 Past Encounters Encounter ID Performer Location Encounter Start Date Encounter Closed Date Diagnosis/Indication Diagnosis SNOMED-CT Code Diagnosis ICD10 Code Diagnosis IMO Codes Diagnosis Note [id number] Chirag Garrett MD [facility] [address] [place] [address] 03/08/2023 12:54:11 03/08/2023 14:55:13 Spinal stenosis of lumbar region 28409232 M48.061 Degenerati on of lumbar intervertebral disc 54732672 M51.36 Radicular pain 21211564 M54.10 Myofascial pain 26384771 9 M79.10 [id number] Chirag Garrett MD [facility] [address] [place] [address] 03/29/2023 12:41:03 03/29/2023 13:46:44 Spinal stenosis of lumbar region 61583130 M48.061 Degenerati on of lumbar intervertebral disc 17853653 M51.36 Radicular pain 98686531 M54.10 Myofascial pain 99105226 9 M79.10 Lumbar radiculopathy 128 667384 M54.16 Opioid dependence 774872 00 F11.20 [id number] Trace Grossman MD [facility] [address] [place] [address],[facility] [address] [place] [address] 06/18/2023 13:20:18 06/18/2023 14:29:38 Occult blood detected in feces 29202602 R19.5 Hemoccult- positive stools, colonoscop y indicated. Will be scheduled today Anemia 881808046 D64.9 moderate anemia of unclear chronicity , check iron, iron saturation , B12 and folate. Repeat CBC Epigastric pain 77443252 R10.13 the patient has a gastric pain that she describes as a nervous sensation, fairly significan t tenderness on examinatio n on nonsteroid als discontinu e Mobic, continue PPI therapy check amylase lipase and LFTs schedule EGD. Chronic diarrhea 3740227 09 K52.9 The patient has diarrhea of unclear chronicity will check a stool calprotect in and GI profile by PCR. Abnormal weight loss 267 793592 R63.4 Reports 40 lb weight loss, certainly could be related to her gastrointe stinal symptoms, workup for her epigastric pain, diarrhea, Hemoccult + stools noted above [id number] Chirag Garrett MD [facility] [address] [place] [address] 07/22/2023 10:52:59 07/22/2023 11:46:11 Spinal stenosis of lumbar region 68432164 M48.061 Lumbar radiculopathy 128 568416 M54.16 Degenerati on of lumbar intervertebral disc 92887526 M51.36 Radicular pain 59619265 M54.10 Myofascial pain 34393889 9 M79.10 Opioid dependence 004827 00 F11.20 [id number] Dontae Payne MD [facility] General Surgery [address] [place], [place] [address] 08/16/2023 13:19:34 08/16/2023 14:18:46 Nausea and vomiting 00842833 R11.2 See above. Unintentio nal weight loss 080662480 R63.4 Esophagoga stroduoden oscopy. Abdominal pain 68510363 R10.9 [id number] GEOFF Caldera General Surgery [address] [place], [place] [address] 09/22/2023 11:45:29 09/22/2023 12:10:41 Unintentional weight loss 207090747 R63.4 Nausea and vomiting 1693 2000 R11.2 Abdominal pain 55763480 R10.9 [id number] GEOFF Caldera [facility] General Surgery [address] [place], [place] [address] 10/13/2023 13:03:07 10/13/2023 14:16:58 Gastritis 5381249 K29.70 [id number] VASILIY FERNANDEZ DO [facility] [place] [address] 11/04/2023 14:08:30 11/04/2023 14:53:35 Spinal stenosis of lumbar region 41498823 M48.061 Lumbar radiculopathy 128 541517 M54.16 Degenerati on of lumbar intervertebral disc 18485511 M51.36 Radicular pain 29773088 M54.10 Myofascial pain 57553619 9 M79.10 Opioid dependence 794500 00 F11.20 [id number] Chirag Garrett MD [facility] [address] [facility] [address] [place] [address] 11/24/2023 10:33:05 11/24/2023 11:03:17 Spinal stenosis of lumbar region 22442313 M48.061 - I was prescribin g the patient Hydrocodon e APAP 5-325mg Q12, but the patient was then prescribed Hydrocodon e APAP 7.5-325mg Q8 through Dr. Caceres ([facility]). Due to her breach in contract, Dr. Fernandez dismissed the patient for medication regimen and advised her to continue with [facility].- The patient presented today confused, wanting a MRI and her pain medication . I advised the patient that medication would be not be able to be prescribed due to her breach in medication contract with Dr. Fernandez at the [facility]. She verbalized understand ing.- I reiterated the conversati on that the patient and Dr. Fernandez had regarding continuing care with [facility]. She verbalized understand ing.- desktop operator staff ensured that she was scheduled today with [facility] and provided the patient with informatio n on time/day of appointmen t and location of facility. Lumbar radiculopathy 128 862081 M54.16 Degenerati on of lumbar intervertebral disc 09282159 M51.362 - Lumbar MRI shows multilevel DDD with areas of foraminal narrowing; left paracentra l superiorly extruded at L5-S1 causing left S1 nerve root impingemen t and mild bilateral neural foraminal narrowing. [id number] [facility] [address] [place] [address] [place] [address] 06/20/2024 13:13:42 06/20/2024 14:30:56 Anemia 439517200 D64.9 [id number] Patient presents June 20, 2024 for evaluation of anemia. Patient noted to have anemia. Suspect this is secondary to vitamin deficiency . However, differenti al diagnosis can not exclude myeloproli ferative disease, kidney disease, or vitamin deficiency . Laboratory evaluation today. Laboratory evaluation performed in the office. Labs pending at this time. Should patient's iron below, recommend IV iron. Patient knows to call with any questions or concerns. Patient to return to clinic in 6 weeks. Should you have any further questions or concerns, please feel free to give me a call at .I personally spent 45 minutes in patient care on this date reviewing records, obtaining interim history, performing a physical exam, counseling the patient, ordering and reviewing today's labs, and documentin g informatio n in the electronic health record. Health Concerns Section Related Observation LastModified by Organization Detai ls LastModified Time None Recorded Concern Status LastModified by Organization Details LastModified Time None Recorded Advance Directives Directive None Recorded Payers Insurance Date Sequence Insurance Name Policy Number Policy Llanos Covered Member ID Llanos Member ID Guarantor Name 09/20/2024 2 AETNA [facility] (MEDICAID HMO) Isatu Briseno [facility] [id number] Isatu Briseno [facility] 11/03/2024 1 [employer] (MEDICARE REPLACEMENT/ ADVANTAGE - HMO) Isatu Briseno [facility] [id number] Isatu Briseno [facility] 06/20/2024 1 [employer] (MEDICARE REPLACEMENT/ ADVANTAGE - PPO) Isatu Briseno [facility] [id number] Isatu Briseno [facility] 06/20/2024 1 [place] Isatu Birseno [facility] [id number] Isatu Briseno [facility] 06/20/2024 2 [employer] [place] (MEDICAID HMO) Isatu Briseno [facility] [id number] Isatu Briseno [facility] Notes Date Note Type Note Provider Name and Address Organization Details Recorded Time 4 text/html Isatu who was a poor historian is here to have an Esophagogastroduodenoscopy. She complains of nausea, vomiting and diarrhea with a weight loss of around 36 lb over the last 6 weeks Although her records so that in February of this year she was 116 lb.. She has had a laparoscopic cholecystectomy in the past. She has recently had a CT scan of her abdomen and pelvis with contrast which showed a 1.2 cm splenic cyst as well as mild nonspecific prominence of the right renal collecting system which is unchanged. GEOFF Caldera [address] [place] [address],[address], [place], [address], [place] - [facility] - [place] & [place] 09/22/2023 12:04:01 4 text/html Isatu returns today for an EGD follow-up which was done 10/01/2023. She states that she is still persisting and having nausea and vomiting with occasional dry heaves. Her EGD showed mild gastritis and a biopsy of the antrum showed minimal chronic gastritis With features of chemical gastropathy with no evidence of H pylori.She was in the emergency room on 10/07/2023 and diagnosed with pneumonia she sees Dr. Angelo Millerfor her primary care. Guerrero Vargas, GEOFF [address] [facility],[address], [place], [address], [facility] - NT [facility] & [place] 10/13/2023 14:22:26 4 text/html ROS as noted in the HPI Ms. Deleon was referred by Dr. Skinner for management of lumbar radiculopathy. The patient is diabetic, anti-coagulation, and nicotine dependence. The patient reports osteopenia. Interval History 11/04/2023: Patient presents today for recurrent lumbar radiculopathy pain. The patient was last seen on 07/22/[address] Garrett for a medication refill. She was given a decreased dose of her normal hydrocodone, which is usually hydrocodone APAP 7.5 q.12hr, Hydrocodone APAP 5-325mg Q12 #60. This medication was filled on 07/23/2023. She then missed her appointment on 08/05/23 and on 09/16, a staff member from the clinic spoke with the patient and she stated she was going to f/u with [facility]. On 10/06/2023, the patient filled a prescription with a provider from [facility] name Ned Caceres who wrote her hydrocodone /APAP 7.5/325 Q 8 hours. Today she follows up to requests a medication refill for her hydrocodone/ APAP 5 mg. Patient's pain is 9/10 Initial complaint: chronic low back painOnset: 5+ yearsContext: Worsening over timeCharacter: Ache, Dull, Sharp, ShootingLocation: Low backDuration: Constant with fluctuationsInitial Intensity: 10/10Worse: Prolonged sitting/standing, Mobility, Position changesBetter: Rest, MedicationsAssociated symptoms: Denies saddle anaesthesia, denies acute bowel/bladder changes, denies acute power loss.ADLs: The patient's pain interferes with daily chores, exercise, sleep, relationships, and walking.Current Pain Medications: BeneficialPrior Pain Medications: N/ANSAIDS/OTC: Minimal benefitNon-interventional Tx: Minimal benefitPhysical Therapy: Home exerciseInterventional Tx: N/ASurgery: None reportedImaging/Studies: N/A VASILIY FERNANDEZ, DO [address] [facility], [place], [address], [facility] & [place] 11/05/2023 08:00:27 5 text/html 79-year-old female referred for evaluation of anemia. Patient notes she presented to her PCP for routine follow-up and laboratory evaluation. Patient with a past medical history of diabetes, hyperlipidemia, insomnia, neuropathy, Ngala-Vedmpfqdd-Emjaf pattern, gastroesophageal reflux disease, osteopenia, and hypertension. Patient complains of significant fatigue. She denies chest or abdominal pain. She denies palpitations or shortness of breath. She denies fever, chills, or night sweats. She denies any overt bleeding. She denies blood in her stool or changes in bowel habits. She denies family history of blood disorders or cancers. Laboratory evaluation from 05/23/2024 reviewed. CBC showed hemoglobin 9.9, hematocrit 32.3, MCV 78. WBC was slightly elevated at 11.6 with an ANC of 9200. Platelets were normal. Thyroid studies were normal. CMP noted a slightly decreased creatinine of 0.50 and an alkaline phosphatase of 159. JUAN DYKES, AEROSPACE STRESS ENGINEER [address] [facility],[address], [place], [address], [facility] & [place] 06/23/2024 08:26:21 OBGyn Episode No OBEpisode recorded.
--- OUTSIDE RECORDS SUMMARY | 2024-12-13 12:10 | XMS_ITS | Clinical Summary ---
Author Organization Healthcare Address [address] [id number] Care Team Providers Care General Utility Worker Name Role Phone Unavailable Primary Care Provider Unavailabl e Social History Tobacco Use Types Packs/Day Years Used Date Smoking Tobacco: Never Assessed Comments Unknown Sex and Gender Information Value Date Recorded Sex Assigned at Not on file Legal Sex Female 8:03 PM EDT Gender Identity Not on file Sexual Orientation Not on file Plan of Treatment Health Maintenance Due Date Last Done Comments [facility]-Bone Density Scan 1945 [facility]-Depression Screening 1945 [facility]-/Child/Adol SDOH Screenings 1945 [facility]- SDOH Screenings 04/30/1965 [facility]-Adult SDOH Screenings 04/30/1965 [facility]-RSV Vaccine: 60+ Years or (1 - 1-dose 75+ series) 04/30/2022 [id number] Vaccine (3 - 2024- season) 2024 12/27/2020, 04/17/2020 [facility]-Influenza Vaccine (#1) 10/09/202411/11, 10/10/2019, 11/22/2018, Additional history exists [facility]-DTaP,Tdap,and Td Vaccines (2 - Td or Tdap) 09/28/2029 09/29/2019 [facility]-Pneumococcal Vaccine: 50+ Years Completed 12/03/2020, 12/01/2018, 10/21/2017 [facility]-Zoster Vaccines Completed 12/03/2020, 02/05/2018, 10/21/2017, Additional history exists HPV Vaccines Aged Out No longer eligi ble based on patient's age to complete this topic [facility]-HIB Vaccines Aged Out No longer e ligible based on patient's age to complete this topic [facility]-Hepatitis A Vaccines Aged Out No longer eligible based on patient's age to complete this topic [facility]-IPV Vaccines Aged Out No longer e ligible based on patient's age to complete this topic [facility]-Rotavirus Vaccines Aged Out No lo nger eligible based on patient's age to complete this topic Insurance [employer] MEDICARE [employer] MEDICAID
--- OUTSIDE RECORDS SUMMARY | 2024-12-13 12:10 | XMS_ITS | Clinical Summary ---
Author Organization [facility] Address [address] [place] [address] Phone Care Team Providers Care Process Development Manager Name Role Phone Nj Porter MD Primary Care Provider Allergies No known active allergies Medications alendronate (FOSAMAX) 70 mg Oral Tablet 2 Active amLODIPine (NORVASC) 10 mg Oral Tablet 2 Active candesartan (ATACAND) 8 mg Oral Tablet 2 Active clonazePAM (KLONOPIN) 1 mg Oral Tablet 2 Active LEVEMIR FLEXTOUCH U-100 INSULN 100 unit/mL (3 mL) SubQ Insulin Pen 2 Active lovastatin (MEVACOR) 10 mg Oral Tablet 2 Active meloxicam (MOBIC) 15 mg Oral Tablet 2 Active metFORMIN (GLUCOPHAGE) 500 mg Oral Tablet 2 Active sertraline (ZOLOFT) 100 mg Oral Tablet 2 Active sotaloL (BETAPACE) 80 mg Oral Tablet 2 Active tiZANidine (ZANAFLEX) 4 mg Oral Tablet 2 Active HYDROcodone-acetam inophen (NORCO) 10-325 mg Oral TabletIndications: Spasm,Sacroiliitis ,Lumbar spondylosis,DDD (degenerative disc disease), lumbar,Myofascial pain,Intervertebra l disc disorder with radiculopathy of lumbar region Take 1 Tablet by mouth every 6 hours as needed for Chronic Pain (G89.29). 120 Tablet 3 Active HYDROcodone-acetam inophen (NORCO) 10-325 mg Oral TabletIndications: Spasm,Sacroiliitis ,Lumbar spondylosis,DDD (degenerative disc disease), lumbar,Myofascial pain,Intervertebra l disc disorder with radiculopathy of lumbar region Take 1 Tablet by mouth every 6 hours as needed for Chronic Pain (G89.29). 120 Tablet 3 Active HYDROcodone-acetam inophen (NORCO) 10-325 mg Oral TabletIndications: Spasm,Sacroiliitis ,Lumbar spondylosis,DDD (degenerative disc disease), lumbar,Myofascial pain,Intervertebra l disc disorder with radiculopathy of lumbar region Take 1 Tablet by mouth every 6 hours as needed for Chronic Pain (G89.29). 120 Tablet 3 Active HYDROcodone-acetam inophen (NORCO) 10-325 mg Oral TabletIndications: Spasm,Sacroiliitis ,Lumbar spondylosis,DDD (degenerative disc disease), lumbar,Myofascial pain,Intervertebra l disc disorder with radiculopathy of lumbar region Take 1 Tablet by mouth every 6 hours as needed for Chronic Pain (G89.29). 120 Tablet 3 Active gabapentin (NEURONTIN) 300 mg Oral Capsule Take 1 Capsule by mouth nightly. 30 Capsule 5 3 Active Social History Tobacco Use Types Packs/Day Years Used Date Smoking Tobacco: Never Assessed Comments Unknown Sex and Gender Information Value Date Recorded Sex Assigned at Not on file Legal Sex Female 10:49 AM EST Gender Identity Not on file Sexual Orientation Not on file Plan of Treatment Health Maintenance Due Date Last Done Comments Wellness Exam Medicare 04/30/1948 Hepatitis C Screening 04/30/1965 Bone Density Screening 04/30/2012 RSV or 60+ (1 - 1-dose 75+ series) 04/30/2022 COVID-19 Vaccine (1 - 2024- season) 2024 Influenza Vaccine (#1) 2024 2, 11/11/2020, 11/09/2019, Additional history exists DTaP/TDaP/Td (2 - Td or Tdap) 09/28/2029 09/29/2019 Pneumococcal Vaccine 50+ Completed 021, 12/01/2018, 10/21/2017 Zoster Completed 12/03/2020, 01/09, 10/21/2017, Additional history exists Hepatitis B Vaccine Aged Out No longe r eligible based on patient's age to complete this topic Meningococcal B Vaccine Aged Out No l onger eligible based on patient's age to complete this topic Insurance [employer] MEDICARE PPO MR [facility] [id number] MDR [place] [id number] MDR Care Teams Process Development Manager Relationship Specialty Start Date End Date Nj Porter MD [address] [place] [address] PCP - General Family Medicine 12/17/14
--- OUTSIDE RECORDS SUMMARY | 2024-12-13 12:10 | XMS_ITS | Patient Health Record ---
Author Organization [facility] Address [address] [place] [address] Care Team Providers Care Wallpaper Inspector Name Role Phone Kyra Ortiz APRN, Mem Primary Care Provider Unavailable Ned Caceres II Unavailable Bear Mata Unavailable Unavailable Mannie Crain Unavailable [phone] Allergies No Known Allergies Results Component Value Reference Range Notes Urine Test ANALYZER Reviewed date:08/24/2024 12:45:44 PM Interpretation:ALL NEG Performing Lab: Notes/Report: ALL NEG Heroin Metabolite (6AM) NEG Amphetamine (AMP) NEG Benzodiazepine (EMMANUEL) NEG Buprenorphine NEG Cocaine (MARY) NEG Hydrocodone (HYD) NEG Methadone (MTD) NEG Opiate (OPI) NEG Oxycodone (OXY) NEG Urine Test ANALYZER Reviewed date:03/06/2024 09:26:07 AM Interpretation:NEG ALL Performing Lab: Notes/Report: NEG ALL Heroin Metabolite (6AM) NEG Amphetamine (AMP) NEG Benzodiazepine (EMMANUEL) NEG Buprenorphine NEG Cocaine (MARY) NEG Hydrocodone (HYD) NEG Methadone (MTD) NEG Opiate (OPI) NEG Oxycodone (OXY) NEG Urine Test ANALYZER Reviewed date:04/13/2024 08:23:41 AM Interpretation:-ALL NEG Performing Lab: Notes/Report: -ALL NEG Heroin Metabolite (6AM) NEG Amphetamine (AMP) NEG Benzodiazepine (EMMANUEL) NEG Buprenorphine NEG Cocaine (MARY) NEG Hydrocodone (HYD) NEG Methadone (MTD) NEG Opiate (OPI) NEG Oxycodone (OXY) NEG Urine Test ANALYZER Reviewed date:06/12/2024 07:27:13 AM Interpretation:+OPI +HYD Performing Lab: Notes/Report: +OPI +HYD Heroin Metabolite (6AM) NEG Amphetamine (AMP) NEG Benzodiazepine (EMMANUEL) NEG Buprenorphine NEG Cocaine (MARY) NEG Hydrocodone (HYD) POS Methadone (MTD) NEG Opiate (OPI) POS Oxycodone (OXY) NEG Urine Test LCMS Definitive Reviewed date:04/28/2024 02:28:39 PM Interpretation:neg all Performing Lab: Notes/Report: neg all Urine Test ANALYZER Reviewed date:12/28/2023 01:29:56 PM Interpretation:+HYD+OPI Performing Lab: Notes/Report: +HYD+OPI Heroin Metabolite (6AM) NEG Amphetamine (AMP) NEG Benzodiazepine (EMMANUEL) NEG Buprenorphine NEG Cocaine (MARY) NEG Hydrocodone (HYD) POS Methadone (MTD) NEG Opiate (OPI) POS Oxycodone (OXY) NEG Reason For Referral Reason Order Xrays Lumbar s pine Order Xray Thoracic Spine Diagnosis 1 Spondylosis without myelopathy or radiculopathy, 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) Diagnosis 2 Spondylosis without myelopathy or radiculopathy, lumbar region (M47.816) Referral Organization [facility] Referring Provider First Name Ned Referring Provider Last Name Nicki Referring Provider Speciality Pain Manag ement Referred Provider Specialty Radiology Referral Priority Routine Medications Medication SIG (Take, Route, Frequency, Duration) Notes Start Date End Date Status tiZANidine 4 mg 1 tab(s) orally 3 times a day; Duration: 30 day(s) 11/19/2022 Active alendronate 70 mg ; Duration: 84 Active meloxicam 15 mg TAKE ONE TABLET BY MOUTH DAILY WITH FOOD; Duration: 90 Active Levemir FlexPen 100 units/mL ; Duration: 82 Active lovastatin 10 mg 1 tab(s) orally once a day Active clonazePAM 1 mg ; Duration: 30 Active ASA/Caffeine/Orphenadr ine 385 mg-30 mg-25 mg [...] BY MOUTH AT BEDTIME; Duration: 30 Active metFORMIN 500 mg 1 tab(s) orally 2 times a day; Duration: 30 day(s) 11/19/2022 Active acetaminophen-hydrocod one 325 mg-7.5 mg 1 tab(s) orally 3 times a day; Duration: 30 days MAY 2024 RX, (OK TO FILL EARLY, ONLY IF CLOSED) Active candesartan 8 mg 1 tab(s) orally once a day; Duration: 30 day(s) 11/19/2022 Active lovastatin 10 mg ; Duration: 90 Active sotalol 80 mg 1 tab(s) orally 2 times a day; Duration: 30 day(s) 11/19/2022 Active sertraline 100 mg 1 tab(s) orally once a day; Duration: 30 day(s) 11/19/2022 Active Problems Problem Type SNOMED Code ICD Code Onset Dates Problem Status W/U Status Risk Notes Problem Thoracic spondylosis without myelopathy (958378334) Spondylosis without myelopathy or radiculopathy, 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) Active confirmed Problem Lumbosacral spondylosis without myelopathy (62359948) Spondylosis without myelopathy or radiculopathy, lumbar region (M47.816) Active confirmed Vital Signs Heart Rate 71 /min 08/18/2024 Blood pressure diastolic 68 mm Hg 08/18/2024 Height 60 in 08/18/2024 Blood pressure systolic 135 mm Hg 08/18/2024 Weight 99 lbs 08/18/2024 BMI 19.33 kg/m2 08/18/2024 Encounters Encounter Location Date Provider Diagnosis [facility] [address] [place] [address] 12/27/2023 Ned Caceres [facility] (current) drug therapy Z79.899 ; Spondylosis without myelopathy or radiculopathy, lumbar region M47.816 and Spondylosis without myelopathy or radiculopathy, thoracolumbar region M47.815 [facility] [address] [place] [address] 03/03/2024 Mannie Crain Other prison (current) drug therapy Z79.899 ; Spondylosis without myelopathy or radiculopathy, lumbar region M47.816 and Spondylosis without myelopathy or radiculopathy, thoracolumbar region M47.815 [facility] [address] [place] [address] 04/13/2024 Ned Caceres 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 Z79.899 ; Spondylosis without myelopathy or radiculopathy, lumbar region M47.816 and Spondylosis without myelopathy or radiculopathy, thoracolumbar region M47.815 [facility] [address] [place] [address] 06/08/2024 Ned Caceres [facility] [address] [place] [address] 08/18/2024 Ned 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 Z79.899 ; Spondylosis without myelopathy or radiculopathy, lumbar region M47.816 and Spondylosis without myelopathy or radiculopathy, thoracolumbar region M47.815 [facility] [address] [place] [address] 12/27/2023 Ned Caceres Other prison (current) drug therapy Z79.899 [facility] [address] [place] [address] 12/27/2023 Ned Caceres [facility] [address] [place] [address] 01/11/2024 Ned Caceres [facility] [address] [place] [address] 02/11/2024 Ned Caceres [facility] [address] [place] [address] 02/22/2024 Ned Caceres [facility] [address] [place] [address] 02/22/2024 Ned Caceres [facility] [address] [place] [address] 02/22/2024 Ned Caceres [facility] [address] [place] [address] 03/03/2024 Ned Caceres Other prison (current) drug therapy Z79.899 [facility] [address] [place] [address] 04/13/2024 Ned Caceres Other prison (current) drug therapy Z79.899 [facility] [address] [place] [address] 04/14/2024 Ned Caceres Other prison (current) drug therapy Z79.899 [facility] [address] [place] [address] 05/24/2024 Ned Caceres Other prison (current) drug therapy Z79.899 [facility] [address] [place] [address] 06/08/2024 Ned 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 Z79.899 [facility] [address] [place] [address] 06/08/2024 Ned Caceres Other prison (current) drug therapy Z79.899 [facility] [address] [place] [address] 08/18/2024 Ned Caceres 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 Z79.899 [facility] [address] [place] [address] 10/25/2024 Ned Caceres [facility] [address] [place] [address] 11/08/2024 Ned Caceres Assessments Encounter Date Diagnosis (ICD Code) Assessment Notes Treatment Notes Treatment Clinical Notes Section Notes 03/03/2024 Spondylosis without myelopathy or radiculopathy, lumbar region (ICD-10 - M47.816) March 03, 2024: The patient presents to the [facility] office in [facility] for an audiovisual-telem edicine visit. The patient was evaluated by the hospitalist medical director and a urine drug screen was obtained as well as vital signs. Portions of the physical examination were assisted by the hospitalist medical director during the audiovisual-telem edicine visit Review of history: Ms. Deleon is a 78-year-old who presents today on referral from Dr. Scott for continuing management of chronic back and neck pain. She has had a longstanding history of degenerative disc disease along with scoliosis and spondylosis. She was managed by Dr. Scott until his skilled nursing about 6 months ago. She was not [...] but she is still very apprehensive. Continue Climax 7.5/325 1 p.o. 3 times daily. She [...] months. No changes in her overall condition. 03/03/2024 Other prison (current) drug therapy (ICD-10 - Z79.899) 03/03/2024 1. refill Climax 7.5/325mg TID 2. Start Norgesic TID 3. 1 month follow up March 03, 2024: The patient presents to the [facility] office in [facility] for an audiovisual-telem edicine visit. The patient was evaluated by the hospitalist medical director and a urine drug screen was obtained as well as vital signs. Portions of the physical examination were assisted by the hospitalist medical director during the audiovisual-telem edicine visit Review of history: Ms. Deleon is a 78-year-old who presents today on referral from Dr. Scott for continuing management of chronic back and neck pain. She has had a longstanding history of degenerative disc disease along with scoliosis and spondylosis. She was managed by Dr. Scott until his skilled nursing about 6 months ago. She was not [...] but she is still very apprehensive. Continue Climax 7.5/325 1 p.o. 3 times daily. She [...] months. No changes in her overall condition. 03/03/2024 Other prison (current) drug therapy (ICD-10 - Z79.899) 12/27/2023 Spondylosis without myelopathy or radiculopathy, lumbar region (ICD-10 - M47.816) 11/30/2023 Ms. Deleon is a 78-year-old who presents today on referral from Dr. Scott for continuing management of chronic back and neck pain. She has had a longstanding history of degenerative disc disease along with scoliosis and spondylosis. She was managed by Dr. Scott until his skilled nursing about 6 months ago. She was not [...] but she is still very apprehensive. Continue Climax 7.5/325 1 p.o. 3 times daily. She denies side effect of that medicine. Na and UDS were reviewed. Opioid risk assessment is moderate. F/u 1 month. [id number] - Patient is very tearful today and has a history of anxiety of which her pcp stopper her Klonopin but did not prescribe another anxiolytic. I told her to follow up with her pcp regarding other optios of medications for her anxiety. She reports increase axial LBP, no acute injuries. She reports her pain medication helps her pain and functional activities. She is trying to do her HEP but has increase thoracoloumbar spine pain. Patient reports no side effects with his medications prescribed at this clinic. Most recent NA and UDS reviewed. Will order thoracolumbar x-rays to rule out acute compression fracture or other significant changes to her spine. She is status post MRI lumbar spine in 2021 with reports of DDD. Will continue with her current medication regimena and see her back in 3-4 weeks. She is to go to the ER if her pain becomes uncontrolled. 12/27/2023 Other prison (current) drug therapy (ICD-10 - Z79.899) 12/27/2023 1. refill Climax 7.5/325mg TID 2. Order MRI lumbar Spine 3. 1 month follow up 11/30/2023 Ms. Deleon is a 78-year-old who presents today on referral from Dr. Scott for continuing management of chronic back and neck pain. She has had a longstanding history of degenerative disc disease along with scoliosis and spondylosis. She was managed by Dr. Scott until his skilled nursing about 6 months ago. She was not [...] but she is still very apprehensive. Continue Climax 7.5/325 1 p.o. 3 times daily. She denies side effect of that medicine. Na and UDS were reviewed. Opioid risk assessment is moderate. F/u 1 month. [id number] - Patient is very tearful today and has a history of anxiety of which her pcp stopper her Klonopin but did not prescribe another anxiolytic. I told her to follow up with her pcp regarding other optios of medications for her anxiety. She reports increase axial LBP, no acute injuries. She reports her pain medication helps her pain and functional activities. She is trying to do her HEP but has increase thoracoloumbar spine pain. Patient reports no side effects with his medications prescribed at this clinic. Most recent NA and UDS reviewed. Will order thoracolumbar x-rays to rule out acute compression fracture or other significant changes to her spine. She is status post MRI lumbar spine in 2021 with reports of DDD. Will continue with her current medication regimena and see her back in 3-4 weeks. She is to go to the ER if her pain becomes uncontrolled. 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 The patient was evaluated by the hospitalist medical director and a urine drug screen was obtained as well as vital signs. Portions of the physical examination were assisted by the hospitalist medical director during the audiovisual-telem edicine visit Patient is a 78-year-old who presents back to the clinic today for follow-up evaluation/treatm ent of chronic low back pain. She reports no changes in pain since last OV. She has not picked up her medications since December due to not having a ride. She has missed the last couple of appointments due to not having a ride. Discussed compliance. She remains uninterested in injections as they have not helped in the past. Medications allow her to continue to complete ADLs. Denies SE. RTC in 2 months or sooner if needed. 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 refill Climax 7.5/325mg TID 2. Continue Norgesic TID 3. Reviewed Narcotic Agreement policies, specifically stressed a) pain medication from one provider only b) no illegal drug use c) take pain medication as prescribed, follow directions. 4. 2 month follow up 04/13/24 The patient presents to the [facility] office in [facility] for an audiovisual-telem edicine visit. The patient was evaluated by the hospitalist medical director and a urine drug screen was obtained as well as vital signs. Portions of the physical examination were assisted by the hospitalist medical director during the audiovisual-telem edicine visit Patient is a 78-year-old who presents back to the clinic today for follow-up evaluation/treatm ent of chronic low back pain. She reports no changes in pain since last OV. She has not picked up her medications since December due to not having a ride. She has missed the last couple of appointments due to not having a ride. Discussed compliance. She remains uninterested in injections as they have not helped in the past. Medications allow her to continue to complete ADLs. Denies SE. RTC in 2 months or sooner if needed. 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 refill Climax 7.5/325mg TID 2. Continue Norgesic TID 3. [...] that. Medication hamilton she continues with the Climax 7.5/325 1 p.o. 3 times daily. She denies any side effect to the medication. She states the medication is useful to her about 10 hours a day for tolerance of daily activity. Na and UDS were reviewed today. Opioid risk assessment is low 08/18/2024 Other prison (current) drug therapy (ICD-10 - Z79.899) 12/27/2023 Other prison (current) drug therapy (ICD-10 - Z79.899) 08/18/2024 Spondylosis without myelopathy or radiculopathy, lumbar region [...] that. Medication hamilton she continues with the Climax 7.5/325 1 p.o. 3 times daily. She denies any side effect to the medication. She states the medication is useful to her about 10 hours a day for tolerance of daily activity. Na and UDS were reviewed today. Opioid risk assessment is low 04/13/2024 Spondylosis without myelopathy or radiculopathy, thoracolumbar region (ICD-10 - M47.815) 04/13/24 The patient presents to the [facility] office in [facility] for an audiovisual-telem edicine visit. The patient was evaluated by the hospitalist medical director and a urine drug screen was obtained as well as vital signs. Portions of the physical examination were assisted by the hospitalist medical director during the audiovisual-telem edicine visit Patient is a 78-year-old who presents back to the clinic today for follow-up evaluation/treatm ent of chronic low back pain. She reports no changes in pain since last OV. She has not picked up her medications since December due to not having a ride. She has missed the last couple of appointments due to not having a ride. Discussed compliance. She remains uninterested in injections as they have not helped in the past. Medications allow her to continue to complete ADLs. Denies SE. RTC in 2 months or sooner if needed. 03/03/2024 Spondylosis without myelopathy or radiculopathy, thoracolumbar region (ICD-10 - M47.815) March 03, 2024: The patient presents to the [facility] office in [facility] for an audiovisual-telem edicine visit. The patient was evaluated by the hospitalist medical director and a urine drug screen was obtained as well as vital signs. Portions of the physical examination were assisted by the hospitalist medical director during the audiovisual-telem edicine visit Review of history: Ms. Deleon is a 78-year-old who presents today on referral from Dr. Scott for continuing management of chronic back and neck pain. She has had a longstanding history of degenerative disc disease along with scoliosis and spondylosis. She was managed by Dr. Scott until his skilled nursing about 6 months ago. She was not [...] but she is still very apprehensive. Continue Climax 7.5/325 1 p.o. 3 times daily. She [...] months. No changes in her overall condition. 12/27/2023 Spondylosis without myelopathy or radiculopathy, thoracolumbar region (ICD-10 - M47.815) 11/30/2023 Ms. Deleon is a 78-year-old who presents today on referral from Dr. Scott for continuing management of chronic back and neck pain. She has had a longstanding history of degenerative disc disease along with scoliosis and spondylosis. She was managed by Dr. Scott until his skilled nursing about 6 months ago. She was not [...] but she is still very apprehensive. Continue Climax 7.5/325 1 p.o. 3 times daily. She denies side effect of that medicine. Na and UDS were reviewed. Opioid risk assessment is moderate. F/u 1 month. [id number] - Patient is very tearful today and has a history of anxiety of which her pcp stopper her Klonopin but did not prescribe another anxiolytic. I told her to follow up with her pcp regarding other optios of medications for her anxiety. She reports increase axial LBP, no acute injuries. She reports her pain medication helps her pain and functional activities. She is trying to do her HEP but has increase thoracoloumbar spine pain. Patient reports no side effects with his medications prescribed at this clinic. Most recent NA and UDS reviewed. Will order thoracolumbar x-rays to rule out acute compression fracture or other significant changes to her spine. She is status post MRI lumbar spine in 2021 with reports of DDD. Will continue with her current medication regimena and see her back in 3-4 weeks. She is to go to the ER if her pain becomes uncontrolled. 08/18/2024 Spondylosis without myelopathy or radiculopathy, thoracolumbar region [...] that. Medication hamilton she continues with the Climax 7.5/325 1 p.o. 3 times daily. She denies any side effect to the medication. She states the medication is useful to her about 10 hours a day for tolerance of daily activity. Na and UDS were reviewed today. Opioid risk assessment is low 01/24/2024 11/30/2023 Ms. Deleon is a 78-year-old who presents today on referral from Dr. Scott for continuing management of chronic back and neck pain. She has had a longstanding history of degenerative disc disease along with scoliosis and spondylosis. She was managed by Dr. Scott until his skilled nursing about 6 months ago. She was not [...] but she is still very apprehensive. Continue Climax 7.5/325 1 p.o. 3 times daily. She denies side effect of that medicine. Na and UDS were reviewed. Opioid risk assessment is moderate. F/u 1 month. [id number] - Patient is very tearful today and has a history of anxiety of which her pcp stopper her Klonopin but did not prescribe another anxiolytic. I told her to follow up with her pcp regarding other optios of medications for her anxiety. She reports increase axial LBP, no acute injuries. She reports her pain medication helps her pain and functional activities. She is trying to do her HEP but has increase thoracoloumbar spine pain. Patient reports no side effects with his medications prescribed at this clinic. Most recent NA and UDS reviewed. Will order thoracolumbar x-rays to rule out acute compression fracture or other significant changes to her spine. She is status post MRI lumbar spine in 2021 with reports of DDD. Will continue with her current medication regimena and see her back in 3-4 weeks. She is to go to the ER if her pain becomes uncontrolled. 10/12/2024 Ms. Deleon returns today for an office [...] that. Medication hamilton she continues with the Climax 7.5/325 1 p.o. 3 times daily. She denies any side effect to the medication. She states the medication is useful to her about 10 hours a day for tolerance of daily activity. Na and UDS were reviewed today. Opioid risk assessment is low 11/07/2024 Ms. Deleon returns today for an office [...] that. Medication hamilton she continues with the Climax 7.5/325 1 p.o. 3 times daily. She denies any side effect to the medication. She states the medication is useful to her about 10 hours a day for tolerance of daily activity. Na and UDS were reviewed today. Opioid risk assessment is low 11/10/2024 Ms. Deleon returns today for an office [...] that. Medication hamilton she continues with the Climax 7.5/325 1 p.o. 3 times daily. She denies any side effect to the medication. She states the medication is useful to her about 10 hours a day for tolerance of daily activity. Na and UDS were reviewed today. Opioid risk assessment is low 11/24/2024 Ms. Deleon returns today for an office [...] that. Medication hamilton she continues with the Climax 7.5/325 1 p.o. 3 times daily. She denies any side effect to the medication. She states the medication is useful to her about 10 hours a day for tolerance of daily activity. Na and UDS were reviewed today. Opioid risk assessment is low 12/23/2023 11/30/2023 Ms. Deleon is a 78-year-old who presents today on referral from Dr. Scott for continuing management of chronic back and neck pain. She has had a longstanding history of degenerative disc disease along with scoliosis and spondylosis. She was managed by Dr. Scott until his skilled nursing about 6 months ago. She was not [...] but she is still very apprehensive. Continue Climax 7.5/325 1 p.o. 3 times daily. She denies side effect of that medicine. Na and UDS were reviewed. Opioid risk assessment is moderate. F/u 1 month. 04/07/2024 March 03, 2024: The patient presents to the [facility] office in [facility] for an audiovisual-telem edicine visit. The patient was evaluated by the hospitalist medical director and a urine drug screen was obtained as well as vital signs. Portions of the physical examination were assisted by the hospitalist medical director during the audiovisual-telem edicine visit Review of history: Ms. Deleon is a 78-year-old who presents today on referral from Dr. Scott for continuing management of chronic back and neck pain. She has had a longstanding history of degenerative disc disease along with scoliosis and spondylosis. She was managed by Dr. Scott until his skilled nursing about 6 months ago. She was not [...] but she is still very apprehensive. Continue Climax 7.5/325 1 p.o. 3 times daily. She [...] No changes in her overall condition. 04/10/2024 March 03, 2024: The patient presents to the [facility] office in [facility] for an audiovisual-telem edicine visit. The patient was evaluated by the hospitalist medical director and a urine drug screen was obtained as well as vital signs. Portions of the physical examination were assisted by the hospitalist medical director during the audiovisual-telem edicine visit Review of history: Ms. Deleon is a 78-year-old who presents today on referral from Dr. Scott for continuing management of chronic back and neck pain. She has had a longstanding history of degenerative disc disease along with scoliosis and spondylosis. She was managed by Dr. Scott until his skilled nursing about 6 months ago. She was not [...] but she is still very apprehensive. Continue Climax 7.5/325 1 p.o. 3 times daily. She [...] months. No changes in her overall condition. 10/25/2024 Ms. Deleon returns today for an office [...] that. Medication hamilton she continues with the Climax 7.5/325 1 p.o. 3 times daily. She denies any side effect to the medication. She states the medication is useful to her about 10 hours a day for tolerance of daily activity. Na and UDS were reviewed today. Opioid risk assessment is low Plan Of Treatment Pending Test Test Name Order Date Urine Test LCMS Definitive 08/18/2024 Insurance Providers Payer Name Payer Address Payer Phone Subscriber Number Group Number Insured Name Patient Relationship to Insured Coverage Start Date Coverage End Date [employer] Medicare Dual [address] [address] [place] [address] [id number] Isatu Deleon Self - patient is the insured 4 [place] Medicaid [address] [place] [address] [phone] [id number] Isatu Deleon Self - patient is the insured 4 Medical (General) History Medical History History ICD Code anxiety diagnosed * managed by * HTN diagnosed* managed by pcp hyperlipidemia diagnosed * managed by * diabetes diagnosed * managed by * Surgical History Surgery Date(Month/Year)
[2024-12-13 12:22] LABS: Alanine Aminotransferase 18 U/L (12-78); Albumin Level 4.2 g/dl (3.5-5.0); Albumin/Globulin Ratio 1.2 (1.1-1.8); Alkaline Phosphatase 112 U/L (38-126); Anion Gap 10.7 mEq/L (5-15); Aspartate Amino Transferase 26 U/L (14-36); Bilirubin,Total 0.6 mg/dl (0.2-1.3); Blood Urea Nitrogen 20 mg/dl (7-17); Calcium 9.9 mg/dl (8.4-10.2); Carbon Dioxide 30 mmol/L (22.0-30.0); Chloride 100 mmol/L (98-107); Creatinine Clearance Estimated 41 mL/min (50-200); Creatinine,Serum 0.60 mg/dl (0.52-1.04); Estimated Glomerular Filt Rate 97 ml/min (>60); GFR (African American) 117 ML/MIN (>60); Globulin 3.6 g/dL (1.3-3.2); Glucose 196 mg/dl (74-100); Lipase 185 U/L (23-300); Magnesium 1.6 mg/dl (1.6-2.3); Potassium 3.7 mmoL/L (3.5-5.1); Sodium 137 mmol/L (136-145); Total Protein,Serum 7.8 g/dl (6.3-8.2)
[2024-12-13 12:41] LABS: Microscopic, Urine URINE MICROSCOPIC (MICROSCOPIC)
[2024-12-13 12:43] LABS: Bilirubin,Urine Negative (Negative); Color,Urine YELLOW (Yellow); Glucose,Urine (UA) Negative (Negative); Ketones,Urine Negative (Negative); Leukocyte Esterase,Urine Negative (Negative); PH,Urine 5.5 (5.0-8.5); Protein,Urine Negative (Negative); Urobilinogen,Urine 0.2 EU/dl (0.2)
[2024-12-13 12:54] LABS: Specific Gravity, Urine 1.025 (1.005-1.030)
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
--- NOTE | 2024-12-13 13:00 | PC.NURSE ---
acquisition marketing manager called and states she spoke with patient's state guardian, Thomas and that patient is not safe to return home and will need to be admitted to the hospital for placement to long-term. Will inform provider.
[2024-12-13 13:47] LABS: Hepatitis C Ab Qual. W/ RFX NEGATIVE (Negative)
[2024-12-13 13:55] LABS: Bacteria,Urine Trace /lpf; Squamous Epithelial Cell,Urine Occasional #/hpf (0-5); WBC,Urine Occasional #/hpf (0-3)
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
--- NOTE | 2024-12-13 14:36 | HMH.PHAINT1 ---
Pharmacy Intervention Comments: MEDICATION RECONCILIATION COMPLETED ON PATIENT USING EXTERNAL FILL HISTORY FROM PHARMACY AND NA REPORT. -DANIEL AMAYA, ELISEOD
[2024-12-13 14:41] LABS: Amphetamine/Metha Screen,Urine Negative ng/ml (<1000); Barbiturates Screen,Urine Negative ng/ml (<200)
[2024-12-13 14:42] LABS: Benzodiazepines Screen,Urine Negative ng/ml (<200); Methadone Screen,Urine Negative ng/ml (<300)
[2024-12-13 14:44] LABS: Opiate Screen,Urine Negative ng/ml (<300)
[2024-12-13 14:45] LABS: Phencyclidine Screen,Urine Negative ng/ml (<25)
--- NOTE | 2024-12-13 15:10 | PC.NURSE ---
arrived by w/c from ED
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
[2024-12-13 15:39] LABS: Hemoglobin A1C 8.1 % (4.0-6.0)
[2024-12-13 15:46] LABS: Thyroid Stimulating Hormone 1.90 uIU/mL (0.465-4.68)
[2024-12-13] MEDS: MAGNESIUM SULFATE IN WATER 2 GM/50 ML PIGGYBACK IV ×2 (15:54→16:44)
[2024-12-13 16:25] LABS: POC Glucose,Bedside 143 gm/dL (70-110)
--- NOTE | 2024-12-13 18:16 | PC.NURSE ---
Pt has been A&Ox4 since arriving to the floor. Vital signs stable tolerating room air. Magnesium replaced per protocol. Pt has ambulated around the room with stand-by assistance from staff. bed alarm in place for safety. call light within reach
[2024-12-13] MEDS: SOTALOL 80MG TABLET 160 MG PO (19:59)
[2024-12-13] MEDS: PRAVASTATIN 20MG TAB 10 MG PO (19:59)
[2024-12-13] MEDS: PANTOPRAZOLE 40MG TABLET 40 MG PO (19:59)
[2024-12-13] MEDS: humaLOG 100 UNITS/ML 10ML VIAL (SSI) SUBCUT (20:03)
[2024-12-13 21:19] LABS: POC Glucose,Bedside 184 gm/dL (70-110)
--- NOTE | 2024-12-14 03:33 | PC.NURSE ---
Pt AOx4. Continually denies pain or any additional needs throughout shift. Pt is currently resting in bed with eyes closed. Respirations even and unlabored. Bed low, locked, and call light is in reach.
[2024-12-14 04:00] VITALS: BP 131/57; PULSE 61; RESP 18; TEMP 36.5; O2SAT 99; BMI 15.0
[2024-12-14 05:50] LABS: POC Glucose,Bedside 113 gm/dL (70-110)
[2024-12-14 06:18] LABS: Hematocrit 36.2 % (37.0-47.0); Hemoglobin 10.9 g/dL (12.2-16.2); Immature Granulocytes % 0.3 %; Mean Corpuscular HGB Conc 30.1 g/dL (31.8-35.4); Mean Corpuscular Hemoglobin 23.6 pg (27.0-31.2); Mean Corpuscular Volume 78.5 fl (81-99); Nucleated Red Blood Cells % 0 %; Platelet Count 268 K/mm3 (142-424); Red Blood Count 4.61 M/mm3 (4.20-5.40); Red Cell Distribution Width-SD 39.7 fL; White Blood Count 7.0 K/mm3 (4.8-10.8)
[2024-12-14 06:31] LABS: Alanine Aminotransferase 12 U/L (12-78); Albumin Level 3.9 g/dl (3.5-5.0); Albumin/Globulin Ratio 1.1 (1.1-1.8); Alkaline Phosphatase 94 U/L (38-126); Anion Gap 8.6 mEq/L (5-15); Aspartate Amino Transferase 24 U/L (14-36); Bilirubin,Total 0.8 mg/dl (0.2-1.3); Blood Urea Nitrogen 15 mg/dl (7-17); Calcium 8.9 mg/dl (8.4-10.2); Carbon Dioxide 27 mmol/L (22.0-30.0); Chloride 105 mmol/L (98-107); Cholesterol 135 mg/dl (140-200); Creatinine Clearance Estimated 28 mL/min (50-200); Creatinine,Serum 0.60 mg/dl (0.52-1.04); Estimated Glomerular Filt Rate 97 ml/min (>60); GFR (African American) 117 ML/MIN (>60); Globulin 3.4 g/dL (1.3-3.2); Glucose 127 mg/dl (74-100); HDL Cholesterol 60 mg/dl (40-60); Magnesium 2.5 mg/dl (1.6-2.3); Potassium 4.6 mmoL/L (3.5-5.1); Sodium 136 mmol/L (136-145); Total Protein,Serum 7.3 g/dl (6.3-8.2); Triglycerides 67 mg/dl (30-150)
[2024-12-14 07:36] VITALS: BP 117/54; PULSE 65; RESP 18; TEMP 36.3; O2SAT 100
[2024-12-14] MEDS: IRBESARTAN 75MG TABLET 75 MG PO (08:18)
[2024-12-14] MEDS: PANTOPRAZOLE 40MG TABLET 40 MG PO ×2 (08:18→20:12)
[2024-12-14] MEDS: SOTALOL 80MG TABLET 160 MG PO ×2 (08:18→20:12)
--- NOTE | 2024-12-14 09:45 | P.PN_ITS ---
<Statement entered by Carmelo Gutierrez MD - 12/16/24 14:17> Agree with the plan of care as outlined by the ICT MANAGERS. Subjective *Date: 12/14/24 *Time: 09:45 Interval history: Patient is doing well today. Up in chair, has no complaints. States she wants to go home. Care management still assisting with placement options at this time. Medical Exam Vital signs and Labs for Last 24 Hours: Vital Signs Temp Pulse Pulse Resp BP BP Pulse Ox 12/14/24 09:00 12/14/24 08:00 12/14/24 07:36 97.3 F L 65 18 117/54 L 100 12/14/24 06:38 12/14/24 05:00 12/14/24 04:00 97.7 F 61 18 131/57 L 99 12/14/24 03:00 12/14/24 01:00 12/13/24 23:00 12/13/24 21:00 12/13/24 20:00 12/13/24 20:00 98.2 F 84 16 149/81 H 98 12/13/24 18:54 12/13/24 17:00 12/13/24 15:33 12/13/24 15:29 98.1 F 69 16 155/71 H 98 12/13/24 15:25 12/13/24 14:54 98.5 F 73 16 153/71 H 12/13/24 14:01 77 168/70 H 98 12/13/24 13:31 85 149/65 H 97 12/13/24 13:01 78 166/72 H 99 12/13/24 12:15 89 158/69 H 96 12/13/24 11:49 98.5 F 79 16 184/109 H 98 O2 Del Method 12/14/24 09:00 Room Air 12/14/24 08:00 Room Air 12/14/24 07:36 Room Air 12/14/24 06:38 Room Air 12/14/24 05:00 Room Air 12/14/24 04:00 Room Air 12/14/24 03:00 Room Air 12/14/24 01:00 Room Air 12/13/24 23:00 Room Air 12/13/24 21:00 Room Air 12/13/24 20:00 Room Air 12/13/24 20:00 Room Air 12/13/24 18:54 Room Air 12/13/24 17:00 Room Air 12/13/24 15:33 Room Air 12/13/24 15:29 Room Air 12/13/24 15:25 Room Air 12/13/24 14:54 Room Air 12/13/24 14:01 12/13/24 13:31 12/13/24 13:01 12/13/24 12:15 12/13/24 11:49 Room Air Intake and Output 12/13/24 12/14/24 12/14/24 23:59 07:59 15:59 Intake Total 553.667 / 1553.667 360 / 360 Output Total 0 / 0 0 / 0 Balance 553.667 / 1553.667 360 / 360 Intake: Intake, Oral Amount 462 / 462 360 / 360 Intake, Total IV Amount 91.667 / 1091.667 Magnesium Sulfate in Water 2 gm 91.667 / 91.667 In 50 ml @ 50 mls/hr IV Q1H [facility] Rx#:[id number] Output: Output, Urine Amount 0 / 0 0 / 0 Other: Number of Voids 0 Number of Unmeasured Voids 1 1 Weight 36.287 kg Patient Weight 12/14/24 23:59 Weight 36.287 kg Laboratory Results - last 24 hr 12/13/24 11:45: WBC 6.4, RBC 4.80, Hgb 11.5 L, Hct 37.8, MCV 78.8 L, MCH 24.0 L, MCHC 30.4 L, RDW 13.9, Plt Count 283, MPV 10.6 H, Neut % (Auto) 72.7, Lymph % (Auto) 19.5, [place] % (Auto) 6.1, Eos % (Auto) 0.8, Baso % (Auto) 0.6, Neut # (Auto) 4.6, Lymph # (Auto) 1.2, [place] # (Auto) 0.4, Eos # (Auto) 0.1, Baso # (Auto) 0.0, Sodium 137, Potassium 3.7, Chloride 100, Carbon Dioxide 30, Anion Gap 10.7, BUN 20 H, Creatinine 0.60, Estimated Creat Clear 41, Estimated GFR 97, Est GFR ( Amer) 117, Glucose 196 H, Hemoglobin A1c 8.1 H, Calcium 9.9, Magnesium 1.6, Total Bilirubin 0.6, AST 26, ALT 18, Alkaline Phosphatase 112, Total Protein 7.8, Albumin 4.2, Globulin 3.6 H, Albumin/Globulin Ratio 1.2, Lipase 185, TSH 1.90, HCV Ab SUSAN w/Rflx PCR Qn Negative, HIV Ag/Ab Combo Qual Negative 12/13/24 12:27: Urine Color Yellow, Urine Appearance Clear, Urine pH 5.5, Ur Specific [place] 1.025, Urine Protein Negative, Urine Glucose (UA) Negative, Urine Ketones Negative, Urine Blood Negative, Urine Nitrate Negative, Urine Bilirubin Negative, Urine Urobilinogen 0.2, Ur Leukocyte Esterase Negative, Urine RBC None, Urine WBC Occasional, Ur Squamous Epith Cells Occasional, Urine Bacteria Trace, Urine Opiates Screen Negative, Urine Methadone Screen Negative, Ur Barbituates Screen Negative, Ur Phencyclidine Scrn Negative, Ur Amphetamines Screen Negative, U Benzodiazepines Scrn Negative, Urine Cocaine Screen Negative, U Marijuana (THC) Screen Negative 12/13/24 16:18: POC Glucose 143 H 12/13/24 19:58: POC Glucose 184 H 12/14/24 05:43: POC Glucose 113 H 12/14/24 05:50: WBC 7.0, RBC 4.61, Hgb 10.9 L, Hct 36.2 L, MCV 78.5 L, MCH 23.6 L, MCHC 30.1 L, RDW 14.1, Plt Count 268, MPV 10.5 H, Neut % (Auto) 66.1, Lymph % (Auto) 23.4, [place] % (Auto) 7.3, Eos % (Auto) 2.3, Baso % (Auto) 0.6, Neut # (Auto) 4.6, Lymph # (Auto) 1.6, [place] # (Auto) 0.5, Eos # (Auto) 0.2, Baso # (Auto) 0.0, Sodium 136, Potassium 4.6 D, Chloride 105, Carbon Dioxide 27, Anion Gap 8.6, BUN 15, Creatinine 0.60, Estimated Creat Clear 28, Estimated GFR 97, Est GFR ( Amer) 117, Glucose 127 H D, Calcium 8.9, Magnesium 2.5 H D, Total Bilirubin 0.8, AST 24, ALT 12 D, Alkaline Phosphatase 94, Total Protein 7.3, Albumin 3.9, Globulin 3.4 H, Albumin/Globulin Ratio 1.1, Triglycerides 67, Cholesterol 135 L, LDL Cholesterol Direct 64.50 L, VLDL Cholesterol 13, HDL Cholesterol 60, Cholesterol/HDL Ratio 2.3 I & O for Labs for Last 24 Hours: Intake & Output 12/11/24 12/12/24 12/13/24 12/14/24 23:59 23:59 23:59 23:59 Intake Total 1553.667 / 1553.667 360 / 360 Output Total 0 / 0 0 / 0 Balance 1553.667 / 1553.667 360 / 360 Weight 37.705 kg 36.287 kg Constitutional: Present no acute distress, average body habitus and cooperative Head: Present atraumatic Eyes: Present as per HPI ENT: Present normal exam Neck: Present normal inspection Respiratory: Present CTA bilaterally and normal respiratory effort; Absent wheezes or crackles Cardiac: Present Reg Rate and Rhythm and No Murmur GI: Present soft and normal bowel sounds; Absent distention or tenderness Rectal (female): Present deferred (female): Present deferred Extremities: Present normal inspection and full ROM Skin: Present intact and dry; Absent erythema or rash Neuro: Present Grossly Intact and moves all extremities Assessment and Plan *Assessment and plan (1) Inadequate housing, unspecified: Status: Acute Category: Social Hx Code(s): Z59.10 - Inadequate housing, unspecified (2) Hypertension: Status: Chronic Category: Medical Code(s): I10 - Essential (primary) hypertension (3) Hyperlipidemia: Status: Chronic Category: Medical Code(s): E78.5 - Hyperlipidemia, unspecified (4) Diabetes type 2, controlled: Status: Chronic Category: Medical Code(s): E11.9 - Type 2 diabetes mellitus without complications Plan Ms. Deleon is a 79-year-old female who was brought to the emergency department today via EMS due to concerns for unsafe living environment and harm to oneself. She has a primary medical history of hypertension, GERD, type 2 diabetes, and dementia. Patient's PCP has went to the court system and patient has been placed under in a emergency guardianship as of today. The guardian, Thomas, went to the patient's home to do a welfare check and the home appeared unclean, full pill bottles, bug infestation. Patient was asked to demonstrate how to check her glucose but instead injected herself with insulin. Patient recently was reported driving through the [employer] [employer] lawn in [facility]. 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 She reportedly has someone living with her named Manolo who is using her money. There was no food found in her home. After discussion with her state guardian it was determined that the patient will need to be admitted for the need for care home placement. The patient at this time is alert and oriented and states she can make her own decisions. Medical workup in the emergency department was grossly unremarkable. Both care management and social work were consulted for further assistance with placement. The ED physician called hospital medicine to admit the patient, I agreed to admit the patient. Plan of care as follows: #Inadequate housing #Andrea of the state ? Patient is currently a andrea of the [facility] and has been deemed incapable of making her own personal decisions. Guardianship is overseen by Thomas. Currently dialysis social worker, Adriana Almendarez is working on a placement situation for the patient. Lengthy conversation with patient about current living situation, she feels that she has everything she needs. She gives me information about her home life but there are a lot of discrepancies with her answers. ?Per my chart review patient was seen in a PCP office in April 2023 where there was suspicion of patient having dementia due to mixed stories and credibility. ? Lab work this morning was unremarkable, normal WBC, no electrolyte abnormalities, normal kidney function. No plans for further labs unless otherwise warranted. ? Social work still working on placement options at this time. #Hypertension #Hyperlipidemia ? Continue candesartan 8 mg daily (formulary substitute irbesartan 75 mg daily), lovastatin 10 mg at bedtime, sotalol 80 mg twice daily. Lipid panel pending #Insomnia ? Continue tizanidine 4 mg at bedtime for muscle spasm. #Type 2 diabetes ? A1c pending, hold metformin. SSI, ACHS fingersticks. #GERD ? Continue omeprazole 20 mg twice daily. Full code Ambulate as tolerated VTE?Lovenox Diabetic diet
--- NOTE | 2024-12-14 10:04 | HMH.PTEV ---
Physical Therapy Evaluation Rehab PT IP Evaluation Start: 12/13/24 13:43 Freq: ONCE Status: Active Protocol: Document 12/14/24 10:00 TONY (Rec: 12/14/24 10:04 TONY [id number]) Subjective/History History History Per H&P: Ms. Deleon is a 79-year-old female who was brought to the emergency department today via EMS due to concerns for unsafe living environment and harm to oneself. She has a primary medical history of hypertension, GERD, type 2 diabetes, and dementia. Patient's PCP has went to the [facility] system and patient has been placed under in a emergency guardianship as of today. The guardian, Thomas, went to the patient's home to do a welfare check today and the home appeared unclean, full pill bottles, bug infestation. Patient was asked to demonstrate how to check her glucose but instead injected herself with insulin. Patient recently was reported driving through the [employer] lawn in [facility]. 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 She reportedly has someone living with her named Manolo who is using her money. There was no food found in her home. After discussion with her state guardian it was determined that the patient will need to be admitted for the need for skilled nursing placement. The patient at this time is alert and oriented and states she can make her own decisions. Medical workup in the emergency department was grossly unremarkable. Subjective Subjective Pt reports she lives alone in an apartment and is usually IND with all mobility. Pt does not use an AD. Pt does not drive. [facility] How much help from another person do you currently need... Turning from your None back to your side while in a flat bed without using bedrails? Moving from lying on None back to sitting on the side of a flat bed without using bedrails? Moving to and from a None bed to a chair ( including a wheelchair)? Standing up from a None chair using your arms? (e.g., wheelchair, bedside chair) Walking in hospital None room? Climbing 3-5 steps None with a railing? Mobility Score 24 Mobility Level [facility] Mobility Walk 250 feet or more Mobility Calculator Rehab PT IP Eval Objective Appearance Patient Behavior Appropriate,Cooperative Patient Orientation Person Difficulty following none instructions Speech Pattern Clear Ambulation Patient Able to Yes Ambulate Ambulation Observation IP General Gait No Deviations/Normal Pattern Observation Ambulation Distance 30 (feet) Ambulation Assistive None Device Ambulation Ability Independent Balance Ability to Arise Able, uses arms to help Sitting Balance Steady, safe Standing Balance Steady, wide stance Dynamic Sitting Good Balance Ability Dynamic Standing Good Balance Ability Transfers Bed Transfer Ability Independent Sit to Stand Bed Independent Transfer Ability Rehab PT IP prob,goals,plan Problems Date of Evaluation: 12/14/24 Rehab Potential Rehab Potential Innapropriate for Skilled Therapy Discharge Plan PT Discharge Plan Pt is at her baseline with mobility/IND and is not appropriate for skilled acute care PT. Eval Complexity Eval Charge Codes 90806 - Moderate Complexity PHYSICIAN CERTIFICATION: I certify the specified therapy services for Isatu Deleon are required, authorized, and reviewed every 30 days.
[2024-12-14 11:22] LABS: POC Glucose,Bedside 143 gm/dL (70-110)
--- NOTE | 2024-12-14 15:16 | PC.NURSE ---
patient is pleasant, a/ox4 with periods of acute confusion, remains on room air. up ad thelma. independent. patient has had no complaints this shift. call light within reach, room near nurses station.
[2024-12-14 16:00] VITALS: BP 114/66; PULSE 61; RESP 19; TEMP 36.6; O2SAT 96
[2024-12-14 16:28] LABS: POC Glucose,Bedside 222 gm/dL (70-110)
[2024-12-14] MEDS: humaLOG 100 UNITS/ML 10ML VIAL (SSI) SUBCUT (16:42)
[2024-12-14 19:37] VITALS: BP 131/41; PULSE 61; RESP 14; TEMP 36.7; O2SAT 97
[2024-12-14 19:57] LABS: POC Glucose,Bedside 97 gm/dL (70-110)
[2024-12-14] MEDS: PRAVASTATIN 20MG TAB 10 MG PO (20:12)
[2024-12-14] MEDS: TIZANIDINE 4MG TABLET 4 MG PO (20:14)
--- NOTE | 2024-12-15 02:33 | PC.NURSE ---
Pt AOx4, pleasant. No significant changes this shift. Tolerating room air well. Denies pain or any additional needs. Currently resting in bed with eyes closed. Respirations even and unabored. Bed is low, locked, and call light is in reach.
[2024-12-15 04:00] VITALS: BP 121/67; PULSE 58; RESP 12; TEMP 36.4; O2SAT 98; BMI 15.5
[2024-12-15 05:06] LABS: POC Glucose,Bedside 110 gm/dL (70-110)
[2024-12-15 06:21] LABS: Hematocrit 37.9 % (37.0-47.0); Hemoglobin 11.3 g/dL (12.2-16.2); Immature Granulocytes % 0.1 %; Mean Corpuscular HGB Conc 29.8 g/dL (31.8-35.4); Mean Corpuscular Hemoglobin 23.7 pg (27.0-31.2); Mean Corpuscular Volume 79.5 fl (81-99); Nucleated Red Blood Cells % 0 %; Platelet Count 295 K/mm3 (142-424); Red Blood Count 4.77 M/mm3 (4.20-5.40); Red Cell Distribution Width-SD 40.1 fL; White Blood Count 6.9 K/mm3 (4.8-10.8)
[2024-12-15 06:29] LABS: Albumin Level 4.7 g/dl (3.5-5.0); Chloride 105 mmol/L (98-107); Potassium 4.0 mmoL/L (3.5-5.1); Sodium 138 mmol/L (136-145)
[2024-12-15 06:31] LABS: Blood Urea Nitrogen 21 mg/dl (7-17)
[2024-12-15 06:32] LABS: Alanine Aminotransferase 12 U/L (12-78); Albumin/Globulin Ratio 2.0 (1.1-1.8); Alkaline Phosphatase 91 U/L (38-126); Anion Gap 10.0 mEq/L (5-15); Aspartate Amino Transferase 29 U/L (14-36); Bilirubin,Total 1.0 mg/dl (0.2-1.3); Calcium 8.9 mg/dl (8.4-10.2); Carbon Dioxide 27 mmol/L (22.0-30.0); Creatinine Clearance Estimated 28 mL/min (50-200); Creatinine,Serum 0.80 mg/dl (0.52-1.04); Estimated Glomerular Filt Rate 70 ml/min (>60); GFR (African American) 84 ML/MIN (>60); Globulin 2.4 g/dL (1.3-3.2); Glucose 148 mg/dl (74-100); Total Protein,Serum 7.1 g/dl (6.3-8.2)
[2024-12-15 06:33] LABS: Magnesium 2.1 mg/dl (1.6-2.3)
[2024-12-15 07:37] VITALS: BP 111/45; PULSE 63; RESP 18; TEMP 36.4; O2SAT 99
[2024-12-15] MEDS: IRBESARTAN 75MG TABLET 75 MG PO (07:48)
[2024-12-15] MEDS: PANTOPRAZOLE 40MG TABLET 40 MG PO ×2 (07:48→21:37)
[2024-12-15] MEDS: SOTALOL 80MG TABLET 160 MG PO ×2 (07:48→21:37)
[2024-12-15] MEDS: METFORMIN 500MG TABLET 500 MG PO (10:02)
[2024-12-15 10:12] LABS: POC Glucose,Bedside 159 gm/dL (70-110)
[2024-12-15 11:56] VITALS: BMI 15.5
--- NOTE | 2024-12-15 14:41 | PC.NURSE ---
Awaiting a bed at [facility].
[2024-12-15 15:43] LABS: POC Glucose,Bedside 173 gm/dL (70-110)
[2024-12-15 16:00] VITALS: BP 119/59; PULSE 60; RESP 18; TEMP 36.4; O2SAT 98
--- NOTE | 2024-12-15 17:12 | P.PN_ITS ---
Subjective *Date: 12/15/24 *Time: 17:12 Interval history: Patient is quite pleasant, walking in the hallways. No transportation to [facility] today, will reevaluate tomorrow. Exam Data for Last 24 hours Vital signs and Labs for Last 24 Hours: Temp Pulse Resp BP Pulse Ox O2 Del Method 97.5 F L 60 18 119/59 L 98 Room Air 12/15/24 16:00 12/15/24 16:00 12/15/24 16:00 12/15/24 16:00 12/15/24 16:00 12/15/24 16:02 Laboratory Results - last 24 hr 12/14/24 19:50: POC Glucose 97 12/15/24 04:59: POC Glucose 110 12/15/24 05:48: WBC 6.9, RBC 4.77, Hgb 11.3 L, Hct 37.9, MCV 79.5 L, MCH 23.7 L, MCHC 29.8 L, RDW 14.0, Plt Count 295, MPV 11.1 H, Neut % (Auto) 65.3, Lymph % (Auto) 24.8, [place] % (Auto) 7.1, Eos % (Auto) 2.0, Baso % (Auto) 0.7, Neut # (A uto) 4.5, Lymph # (Auto) 1.7, [place] # (Auto) 0.5, Eos # (Auto) 0.1, Baso # (Auto) 0.1, Sodium 138, Potassium 4.0, Chloride 105, Carbon Dioxide 27, Anion Gap 10.0, BUN 21 H D, Creatinine 0.80 D, Estimated Creat Clear 28, Estimated GFR 70, Est GFR ( Amer) 84 D, Glucose 148 H, Calcium 8.9, Magnesium 2.1 D, Total Bilirubin 1.0, AST 29, ALT 12, Alkaline Phosphatase 91, Total Protein 7.1, Albumin 4.7 D, Globulin 2.4, Albumin/Globulin Ratio 2.0 H 12/15/24 10:03: POC Glucose 159 H 12/15/24 15:35: POC Glucose 173 H I & O for Last 24 hours: Intake & Output 12/12/24 12/13/24 12/14/24 12/15/24 23:59 23:59 23:59 23:59 Intake Total 1553.667 / 9611.185 9434 / 1140 940 / 940 Output Total 0 / 0 0 / 0 0 / 0 Balance 1553.667 / 9795.963 0374 / 1140 940 / 940 Weight 37.705 kg 36.287 kg 37.24 kg Constitutional Constitutional: no acute distress *Routine HEENT Exam Head: Present normocephalic Eye: Present EOMI and PERRL ENT: Present mucous membranes moist *Routine Neck Exam Neck: Present supple; Absent lymphadenopathy *Routine Respiratory Exam Respiratory: Present CTA bilaterally *Routine Cardiovascular Exam Cardiovascular: Present RRR *Routine Abdominal Exam Abdominal: Present soft and normoactive bowel sounds; Absent tenderness *Routine Extremities Exam Extremities: Absent cyanosis, clubbing or edema *Routine Skin Exam Skin: Present warm; Absent rash *Routine Neurological Exam Neurological: Present alert and oriented X3 Assessment and Plan *Assessment and plan (1) Inadequate housing, unspecified: Status: Acute Category: Social Hx Code(s): Z59.10 - Inadequate housing, unspecified (2) Hypertension: Status: Chronic Category: Medical Code(s): I10 - Essential (primary) hypertension (3) Hyperlipidemia: Status: Chronic Category: Medical Code(s): E78.5 - Hyperlipidemia, unspecified (4) Diabetes type 2, controlled: Status: Chronic Category: Medical Code(s): E11.9 - Type 2 diabetes mellitus without complications Plan Ms. Deleon is a 79-year-old female who was brought to the emergency department today via EMS due to concerns for unsafe living environment and harm to oneself. She has a primary medical history of hypertension, GERD, type 2 diabetes, and dementia. Patient's PCP has went to the [employer] system and patient has been placed under in a emergency guardianship as of today. The guardian, Thomas, went to the patient's home to do a welfare check and the home appeared unclean, full pill bottles, bug infestation. Patient was asked to demonstrate how to check her glucose but instead injected herself with insulin. Patient recently was re ported driving through the [employer] lawn in [facility]. 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 She reportedly has someone living with her named Manolo who is using her money. There was no food found in her home. After discussion with her state guardian it was determined that the patient will need to be admitted for the need for [facility] placement. The patient at this time is alert and oriented and states she can make her own decisions. Medical workup in the emergency department was grossly unremarkable. Both care management and social work were consulted for further assistance with placement. The ED physician called hospital medicine to admit the patient, I agreed to admit the patient. Plan of care as follows: #Inadequate housing #Andrea of the state ? Patient is currently a andrea of the [facility] and has been deemed incapable of making her own personal decisions after a series of evaluations. Guardianship is overseen by Thomas. Lengthy conversation with patient about current living situation, she feels that she has everything she needs. She gives me information about her home life but there are a lot of discrepancies with her answers. ? Patient has been accepted to [facility], but unable to provide transportation at this time. Will reevaluate tomorrow. ?Per my chart review patient was seen in a PCP office in April 2023 where there was suspicion of patient having dementia due to mixed stories and credibility. #Hypertension #Hyperlipidemia ? Continue candesartan 8 mg daily (formulary substitute irbesartan 75 mg daily), lovastatin 10 mg at bedtime, sotalol 80 mg twice daily. Lipid panel pending #Insomnia ? Continue tizanidine 4 mg at bedtime for muscle spasm. #Type 2 diabetes ? A1c pending, hold metformin. SSI, ACHS fingersticks. #GERD ? Continue omeprazole 20 mg twice daily. Full code Ambulate as tolerated VTE?Lovenox Diabetic diet
[2024-12-15 20:00] VITALS: BP 135/59; PULSE 65; RESP 16; TEMP 36.5; O2SAT 96
[2024-12-15] MEDS: PRAVASTATIN 20MG TAB 10 MG PO (21:37)
[2024-12-15 21:49] LABS: POC Glucose,Bedside 170 gm/dL (70-110)
[2024-12-15] MEDS: INSULIN DETEMIR 100 UNIT/ML 3ML FLEXPEN 15 UNIT SUBCUT (21:53)
[2024-12-15] MEDS: humaLOG 100 UNITS/ML 10ML VIAL (SSI) SUBCUT (21:53)
--- NOTE | 2024-12-16 03:55 | PC.NURSE ---
Patient is alert to self (can recite her birthday matching to her chart), time, and situation; she has exhibited confusion to place, stating that she is at [facility]. She was easily reoriented by nursing staff. Mild forgetfulness was also noted. Has also asked nursing staff a few times this shift about the whereabouts of a Manolo. During wakeful periods (yesterday evening), she has ambulated around in her room frequently and independently without any difficulties. She was observed to be resting in bed with eyes closed, respirations even and unlabored on room air, and no apparent distress throughout the majority of the night. Patient has not had any complaints or reported abnormal symptoms. No thoughts of self harm were expressed this shift. Physical assessment performed as appropriately for this shift (see nursing shift biophysical intervention). Scheduled medications administered per MAR. Ambulates to the bathroom for elimination needs, has had multiple voids and one bowel movement this shift. ACHS glucose checks performed, insulin coverage provided per MAR. Patient educated about the importance of checking blood glucose and administering insulin coverage for elevated glucose readings. At this time, the patient is resting in bed without any new needs vocalized. Call light is within reach.
[2024-12-16 04:00] VITALS: BP 141/56; PULSE 48; RESP 12; TEMP 36.4; O2SAT 97; BMI 15.9
[2024-12-16 06:28] LABS: POC Glucose,Bedside 100 gm/dL (70-110)
[2024-12-16 08:00] VITALS: BP 127/57; PULSE 65; RESP 16; TEMP 36.7; O2SAT 96
[2024-12-16] MEDS: SOTALOL 80MG TABLET 160 MG PO (09:33)
[2024-12-16] MEDS: METFORMIN 500MG TABLET 500 MG PO (09:34)
[2024-12-16] MEDS: IRBESARTAN 75MG TABLET 75 MG PO (09:34)
[2024-12-16] MEDS: PANTOPRAZOLE 40MG TABLET 40 MG PO (09:35)
[2024-12-16 10:58] LABS: POC Glucose,Bedside 179 gm/dL (70-110)
[2024-12-16] MEDS: humaLOG 100 UNITS/ML 10ML VIAL (SSI) SUBCUT (11:11)
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
== END 2024-12-16 14:55 ==
LOC: ER 14:26 → 2ND 14:45
PROVIDERS: Nurse Practitioner; Admitting Provider Student in an Organized Health Care Education/Training Program; Emergency Provider Student in an Organized Health Care Education/Training Program; PCP Nurse Practitioner Family; Visit Provider Student in an Organized Health Care Education/Training Program
DX: I10 Essential (primary) hypertension (principal); E78.5 Hyperlipidemia, unspecified; E11.9 Type 2 diabetes mellitus without complications; K21.9 Gastro-esophageal reflux disease without esophagitis; E43 Unspecified severe protein-calorie malnutrition; G47.00 Insomnia, unspecified; F03.90 Unspecified dementia, unspecified severity, without behavioral disturbance, psychotic disturbance, mood disturbance, and anxiety; Z59.10 Inadequate housing, unspecified; Z88.8 Allergy status to other drugs, medicaments and biological substances; Z79.84 Long term (current) use of oral hypoglycemic drugs; Z79.4 Long term (current) use of insulin; Z79.899 Other long term (current) drug therapy; Z68.1 Body mass index [BMI] 19.9 or less, adult; Z82.49 Family history of ischemic heart disease and other diseases of the circulatory system; Z83.3 Family history of diabetes mellitus
CPT/HCPCS: 36415; 71045; 80053; 80061; 80307; 81001; 82962; 83036; 83690; 83735; 84443; 85025; 86803; 87389; 96361; 96365; 96366; 96372; 97162; 97166; 99285; G0378; J1650; J3475; J7030